=== PATIENT | male | born 1945 | race Two or more races ===

== ENCOUNTER 2019-10-05 09:59 | Inpatient (IN) | payer MEDICARE, MEDICAID ==
[2019-10-05] VITALS (8 sets, daily range): BP systolic 97–162; BP diastolic 56–84
[~2019-10-05] VITALS: Ht 185.4 cm; Wt 80.3 kg
--- NOTE | 2019-10-05 09:59 | NUR ---
ED Nurse Note: Patient was Brought in by ambulance 26 from [facility] due to SOB and desat. pt sp02 is 80 -95% with 15L /min with NR mask. pt is alert x1. non verbal at this time. 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
--- NOTE | 2019-10-05 10:21 | Emergency Room Report ---
History of Present Illness General Chief Complaint: Upper Respiratory Illness Source: EMS Present Illness HPI Patient is sent in from nursing facility With reports of shortness of breath Upon arrival the patient is some respiratory distress appears tachypneic and uncomfortable Patient himself is not able to provide any input History of present illness remains limited paramedics have reported that the patient tested negative for covid-19 at the nursing facility however is unclear if the testing date There has been well-known documented positive cases at this facility specifically Otherwise the history of present illness remains limited Allergies: Coded Allergies: No Known Allergies (Unverified , 10/05/19) COVID-19 Screening Contact w/high risk pt: Yes Recent Travel to affected area: No Experienced COVID-19 symptoms?: Yes COVID-19 symptoms experienced: Shortness of Breath Patient History Limited by: medical condition Past Medical History: see triage record Reviewed Nursing Documentation: PMH: Agreed; PSxH: Agreed Nursing Documentation-PMH Hx Cardiac Problems: Yes - A fib Hx Hypertension: Yes Hx Gastrointestinal Problems: Yes Review of Systems All Other Systems: limited - Other than the ones mentioned in the history of present illness all others are reviewed however they do stay limited due to the patient's mental status Physical Exam Vital Signs Date Time Temp Pulse Resp B/P (MAP) Pulse Ox O2 Delivery O2 Flow Rate FiO2 10/05/19 09:52 99.0 140 24 180/62 (101) 90 Non-Rebreather 15.0 Sp02 EP Interpretation: reviewed, abnormal - Documented at 90%, however at bedside patient saturating at 97% on 6L oxygenation General Appearance: moderate distress - Appears tachypneic and uncomfortable Head: normocephalic, atraumatic Eyes: bilateral eye PERRL, bilateral eye EOMI ENT: dry mucus membranes Neck: supple Respiratory: crackles - Bilaterally with evidence of some early retractions and tachypneic Cardiovascular #1: tachycardia Gastrointestinal: non tender, soft Musculoskeletal: other - Patient has below the knee amputations moves upper extremity without focal deficit Neurologic: responsive - eyes are open and patient is awake however appears in mild to moderate distress Skin: other - Multiple skin breakdowns Lymphatic: no adenopathy Procedures Critical Care Time Critical Care Time 85 minutes for initial critical presentation concern for covid-19 concern for acute respiratory decompensation and possible not including any procedural time Medical Decision Making Diagnostic Impression: Primary Impression: Dyspnea Additional Impressions: COVID-19 virus infection Upper respiratory infection ER Course Patient is a fairly complex patient with multiple differential to consideration including but not limited to cardiac cardiopulmonary and vascular emergencies Patient presented tachycardic Appears ill After Nugent catheter placement patient's heart rate improved significantly respirations appear to improve Heart rate did improve patient remains generally malaised Atrial fibrillation is also improved Patient has testing performed and admitted for further care Labs Test 10/05/19 10:15 10/05/19 11:48 White Blood Count 22.1 K/UL (4.8-10.8) Red Blood Count 5.89 M/UL (4.70-6.10) Hemoglobin 18.3 G/DL (14.2-18.0) Hematocrit 56.6 % (42.0-52.0) Mean Corpuscular Volume 96 FL (80-99) Mean Corpuscular Hemoglobin 31.1 PG (27.0-31.0) Mean Corpuscular Hemoglobin Concent 32.4 G/DL (32.0-36.0) Red Cell Distribution Width 13.5 % (11.6-14.8) Platelet Count 151 K/UL (150-450) Mean Platelet Volume 11.2 FL (6.5-10.1) Neutrophils (%) (Auto) % (45.0-75.0) Lymphocytes (%) (Auto) % (20.0-45.0) Monocytes (%) (Auto) % (1.0-10.0) Eosinophils (%) (Auto) % (0.0-3.0) Basophils (%) (Auto) % (0.0-2.0) Differential Total Cells Counted 100 Neutrophils % (Manual) 81 % (45-75) Lymphocytes % (Manual) 6 % (20-45) Monocytes % (Manual) 3 % (1-10) Eosinophils % (Manual) 0 % (0-3) Basophils % (Manual) 0 % (0-2) Band Neutrophils 10 % (0-8) Platelet Estimate Adequate Platelet Morphology Normal Red Blood Cell Morphology Normal Prothrombin Time 14.1 SEC (9.30-11.50) Prothromb Time International Ratio 1.3 (0.9-1.1) Activated Partial Thromboplast Time 29 SEC (23-33) Urine Color Yellow Urine Appearance Clear Urine pH 5 (4.5-8.0) Urine Specific [place] 1.010 (1.005-1.035) Urine Protein 2+ (NEGATIVE) Urine Glucose (UA) Negative (NEGATIVE) Urine Ketones Negative (NEGATIVE) Urine Blood 1+ (NEGATIVE) Urine Nitrite Negative (NEGATIVE) Urine Bilirubin Negative (NEGATIVE) Urine Urobilinogen Normal MG/DL (0.0-1.0) Urine Leukocyte Esterase Negative (NEGATIVE) Urine RBC 0-2 /HPF (0 - 0) Urine WBC 0 /HPF (0 - 0) Urine Squamous Epithelial Cells None /LPF (NONE/OCC) Urine Bacteria None /HPF (NONE) Arterial Blood pH 7.494 (7.350-7.450) Arterial Blood Partial Pressure CO2 12.6 mmHg (35.0-45.0) Arterial Blood Partial Pressure O2 66.6 mmHg (75.0-100.0) Arterial Blood HCO3 9.5 mmol/L (22.0-26.0) Arterial Blood Oxygen Saturation 94.2 % (95-100) Arterial Blood Base Excess -9.0 (-2-2) Chucho Test Positive Sodium Level 149 MMOL/L (136-145) Potassium Level 5.4 MMOL/L (3.5-5.1) Chloride Level 116 MMOL/L (98-107) Carbon Dioxide Level 16 MMOL/L (21-32) Anion Gap 17 mmol/L (5-15) Blood Urea Nitrogen 102 mg/dL (7-18) Creatinine 4.3 MG/DL (0.55-1.30) Estimat Glomerular Filtration Rate 13.6 mL/min (>60) Glucose Level 123 MG/DL (74-106) Lactic Acid Level 3.50 mmol/L (0.4-2.0) 3.40 mmol/L (0.66-2.22) Calcium Level 9.4 MG/DL (8.5-10.1) Total Bilirubin 0.5 MG/DL (0.2-1.0) Aspartate Amino Transf (AST/SGOT) 27 U/L (15-37) Alanine Aminotransferase (ALT/SGPT) 30 U/L (12-78) Alkaline Phosphatase 68 U/L (46-116) Total Creatine Kinase 151 U/L (26-308) Creatine Kinase MB 1.7 NG/ML (0.0-3.6) Creatine Kinase MB Relative Index 1.1 Troponin I 0.326 ng/mL (0.000-0.056) Pro-B-Type Natriuretic Peptide 91271 pg/mL (0-125) Total Protein 8.0 G/DL (6.4-8.2) Albumin 2.9 G/DL (3.4-5.0) Globulin 5.1 g/dL Albumin/Globulin Ratio 0.6 (1.0-2.7) Rhythm Strip Diag. Results EP Interpretation: yes Rate: 125 Rhythm: no PVC's, no ectopy, other - Tachycardic Chest X-Ray Diagnostic Results Chest X-Ray Diagnostic Results : Chest X-Ray Ordered: Yes # of Views/Limited/Complete: 1 View Indication: Shortness of Breath EP Interpretation: Yes Interpretation: no pneumothorax, other - Right lower lobe infiltrate, small effusion Impression: Other - Right lower lobe infiltrate small effusion Electronically Signed by: Tate Christine DO Last Vital Signs Date Time Temp Pulse Resp B/P (MAP) Pulse Ox O2 Delivery O2 Flow Rate FiO2 10/05/19 09:52 99.0 140 24 180/62 (101) 90 Non-Rebreather 15.0 Status: improved Disposition: ADMITTED INPATIENT Condition: Critical Tate Christine DO Oct 05, 2019 10:21
[2019-10-05] MEDS ORDERED: Piperacillin/Tazobactam 3.375 GM in NS 110 ML IVPB ONE (10:30)
--- NOTE | 2019-10-05 10:30 | NUR ---
ED Nurse Note: blood , urine, swab sample sent down to lab.
[2019-10-05 10:38] LABS: APPEARANCE,URINE CLEAR; BILIRUBIN, URINE NEGATIVE (NEGATIVE); GLUCOSE, URINE (UA) NEGATIVE (NEGATIVE); HEMATOCRIT 56.6 % (42.0-52.0); KETONES,URINE NEGATIVE (NEGATIVE); LEUKOCYTE ESTERASE ,URINE NEGATIVE (NEGATIVE); MEAN CORPUSCULAR VOLUME 96 FL (80-99); NITRITE,URINE NEGATIVE (NEGATIVE); PH,URINE 5 (4.5-8.0); PLATELET COUNT 151 K/UL (150-450); PROTEIN,URINE 2+ (NEGATIVE); RED BLOOD COUNT 5.89 M/UL (4.70-6.10); RED CELL DISTRIBUTION WIDTH 13.5 % (11.6-14.8); UROBILINOGEN,URINE NORMAL MG/DL (0.0-1.0)
[2019-10-05 10:50] LABS: COLOR,URINE YELLOW
--- NOTE | 2019-10-05 10:56 | NUR ---
ED Nurse Note: x ray at bedside.
[2019-10-05 11:01] LABS: ALANINE AMINOTRANSFERASE 30 U/L (12-78); ALBUMIN 2.9 G/DL (3.4-5.0); ALBUMIN/GLOBULIN RATIO 0.6 (1.0-2.7); ALKALINE PHOSPHATASE 68 U/L (46-116); ASPARTATE AMINO TRANSFERASE 27 U/L (15-37); BILIRUBIN,TOTAL 0.5 MG/DL (0.2-1.0); BLOOD UREA NITROGEN 102 mg/dL (7-18); CALCIUM 9.4 MG/DL (8.5-10.1); CARBON DIOXIDE 16 MMOL/L (21-32); CHLORIDE 116 MMOL/L (98-107); CKMB 1.7 NG/ML (0.0-3.6); CREATINE KINASE 151 U/L (26-308); CREATININE 4.3 MG/DL (0.55-1.30); POTASSIUM 5.4 MMOL/L (3.5-5.1); SODIUM 149 MMOL/L (136-145)
[2019-10-05 11:03] LABS: HEMOGLOBIN 18.3 G/DL (14.2-18.0); WHITE BLOOD COUNT 22.1 K/UL (4.8-10.8)
[2019-10-05 11:09] LABS: ANION GAP 17 mmol/L (5-15)
[2019-10-05] MEDS ORDERED: Heparin 5000 units/ml inj IV ONE (11:15)
[2019-10-05] MEDS ORDERED: Heparin 25,000u/D5W 500ml 500 ML IV SCH (11:15)
--- NOTE | 2019-10-05 11:15 | NUR ---
ED Nurse Note: awaiting for ptt result. per ERMD, give loading dose first, will wait for the ptt result to start heparin drip
[2019-10-05 11:29] LABS: INR 1.3 (0.9-1.1)
[2019-10-05] MEDS ORDERED: dilTIAZem HCl 25mg/5ml Inj IVP ONE (11:30)
--- NOTE | 2019-10-05 11:52 | NUR ---
ED Nurse Note: RECEIVED RESULT OF INITIAL PTT DRAWN AT 1015. HEPARIN DRIP INITIATED BY PRIMARY RN. RECEIVED VERBAL ORDER FOR TIMED PTT 6 HOURS AFTER INITIAL DRAW; 3855.
--- NOTE | 2019-10-05 12:05 | NUR ---
ED Nurse Note: heparin drip started, repeat lactic level sent to lab.
[2019-10-05] MEDS: Acetaminophen 650 MG SUPP RECTAL ONE ×2 (13:34→13:36)
[2019-10-05] MEDS ORDERED: Acetaminophen 650 MG SUPP RECTAL ONE (13:46)
--- NOTE | 2019-10-05 13:52 | Diagnostic Imaging Report ---
Indication: Shortness of breath Technique: One view of the chest Comparison: none Findings: Metallic foreign body projects over the left upper abdomen. Uncertain as whether internal or external to the patient. There is slight blunting of right costophrenic sulcus, small effusion possible. There is questionable slight hazy infiltrate at the right lung base. The remainder of the lungs in the left pleural space are clear. Multiple old healed left rib fracture deformities are noted. The heart size is normal Impression: Possible subtle right basilar hazy infiltrate and minimal pleural fluid. Correlate with clinical findings Other findings as noted
--- NOTE | 2019-10-05 15:07 | Cardiac Electrophysiology PN ---
Subjective Subjective [id number] Objective Last 24 Hour Vital Signs Date Time Temp Pulse Resp B/P (MAP) Pulse Ox O2 Delivery O2 Flow Rate FiO2 10/05/19 13:20 100.3 10/05/19 12:06 98.2 122 26 120/78 93 Non-Rebreather 15.0 10/05/19 11:45 140 118/76 10/05/19 09:59 145 28 Non-Rebreather 15.0 10/05/19 09:59 98.8 145 28 162/84 90 Non-Rebreather 15.0 10/05/19 09:52 99.0 140 24 180/62 (101) 90 Non-Rebreather 15.0 Laboratory Tests Test 10/05/19 10:15 10/05/19 11:48 White Blood Count 22.1 K/UL (4.8-10.8) *H Red Blood Count 5.89 M/UL (4.70-6.10) Hemoglobin 18.3 G/DL (14.2-18.0) *H Hematocrit 56.6 % (42.0-52.0) H Mean Corpuscular Volume 96 FL (80-99) Mean Corpuscular Hemoglobin 31.1 PG (27.0-31.0) H Mean Corpuscular Hemoglobin Concent 32.4 G/DL (32.0-36.0) Red Cell Distribution Width 13.5 % (11.6-14.8) Platelet Count 151 K/UL (150-450) Mean Platelet Volume 11.2 FL (6.5-10.1) H Neutrophils (%) (Auto) % (45.0-75.0) Lymphocytes (%) (Auto) % (20.0-45.0) Monocytes (%) (Auto) % (1.0-10.0) Eosinophils (%) (Auto) % (0.0-3.0) Basophils (%) (Auto) % (0.0-2.0) Differential Total Cells Counted 100 Neutrophils % (Manual) 81 % (45-75) H Lymphocytes % (Manual) 6 % (20-45) L Monocytes % (Manual) 3 % (1-10) Eosinophils % (Manual) 0 % (0-3) Basophils % (Manual) 0 % (0-2) Band Neutrophils 10 % (0-8) H Platelet Estimate Adequate Platelet Morphology Normal Red Blood Cell Morphology Normal Prothrombin Time 14.1 SEC (9.30-11.50) H Prothromb Time International Ratio 1.3 (0.9-1.1) H Activated Partial Thromboplast Time 29 SEC (23-33) Urine Color Yellow Urine Appearance Clear Urine pH 5 (4.5-8.0) Urine Specific [place] 1.010 (1.005-1.035) Urine Protein 2+ (NEGATIVE) H Urine Glucose (UA) Negative (NEGATIVE) Urine Ketones Negative (NEGATIVE) Urine Blood 1+ (NEGATIVE) H Urine Nitrite Negative (NEGATIVE) Urine Bilirubin Negative (NEGATIVE) Urine Urobilinogen Normal MG/DL (0.0-1.0) Urine Leukocyte Esterase Negative (NEGATIVE) Urine RBC 0-2 /HPF (0 - 0) H Urine WBC 0 /HPF (0 - 0) Urine Squamous Epithelial Cells None /LPF (NONE/OCC) Urine Bacteria None /HPF (NONE) Arterial Blood pH 7.494 (7.350-7.450) Arterial Blood Partial Pressure CO2 12.6 mmHg (35.0-45.0) *L Arterial Blood Partial Pressure O2 66.6 mmHg (75.0-100.0) L Arterial Blood HCO3 9.5 mmol/L (22.0-26.0) *L Arterial Blood Oxygen Saturation 94.2 % (95-100) L Arterial Blood Base Excess -9.0 (-2-2) L Chucho Test Positive Sodium Level 149 MMOL/L (136-145) H Potassium Level 5.4 MMOL/L (3.5-5.1) H Chloride Level 116 MMOL/L (98-107) H Carbon Dioxide Level 16 MMOL/L (21-32) L Anion Gap 17 mmol/L (5-15) H Blood Urea Nitrogen 102 mg/dL (7-18) H Creatinine 4.3 MG/DL (0.55-1.30) H Estimat Glomerular Filtration Rate 13.6 mL/min (>60) Glucose Level 123 MG/DL (74-106) H Lactic Acid Level 3.50 mmol/L (0.4-2.0) H 3.40 mmol/L (0.66-2.22) H Calcium Level 9.4 MG/DL (8.5-10.1) Total Bilirubin 0.5 MG/DL (0.2-1.0) Aspartate Amino Transf (AST/SGOT) 27 U/L (15-37) Alanine Aminotransferase (ALT/SGPT) 30 U/L (12-78) Alkaline Phosphatase 68 U/L (46-116) Total Creatine Kinase 151 U/L (26-308) Creatine Kinase MB 1.7 NG/ML (0.0-3.6) Creatine Kinase MB Relative Index 1.1 Troponin I 0.326 ng/mL (0.000-0.056) Pro-B-Type Natriuretic Peptide 32919 pg/mL (0-125) H Total Protein 8.0 G/DL (6.4-8.2) Albumin 2.9 G/DL (3.4-5.0) L Globulin 5.1 g/dL Albumin/Globulin Ratio 0.6 (1.0-2.7) L Microbiology Date/Time Source Procedure Growth Status 10/05/19 10:15 Nasal Nares - Final Complete 10/05/19 10:15 Nasal Nares - Final Complete Kei Adams MD Oct 05, 2019 15:06
[2019-10-05] MEDS ORDERED: DiphenhydrAMINE 25mg Tab ORAL PRN (15:15)
[2019-10-05] MEDS ORDERED: Albuterol/Ipratropium 3ml neb HHN PRN (15:15)
[2019-10-05] MEDS ORDERED: Mylanta II UD 30ml ORAL PRN (15:15)
--- NOTE | 2019-10-05 15:42 | History and Physical ---
History of Present Illness General Date patient seen: Oct 05, 2019 Time patient seen: 15:31 Reason for Hospitalization: Upper Respiratory Illness Present Illness HPI 73 year old man with history of atrial fibrillation, not on anticoagulation, dysphagia, s/p G-tube, chonic diastolic CHF, HTN, DNR who presented from SNF with dyspnea and hypoxemia, oxygen saturation was reportedly 80 -95% with 15L / min with NR mask. pt is alert x1. non verbal at the time of my visit, information obtain from assisted papers and discussion with ED team. In ED he was found to be in rapid atrial fibrillation, HR 150s, given IV diltiazem. Other workup showed IRENE and hypernatremia, acute urinary retention with 2 liters of urine obtained after Nugent was placed, RLL infiltrate on CXR and elevated lactate, mildly elevated troponin. Patient given IV abx and referred for telemetry admission. FHx: Unable to obtain due to medical condition SHx: shelter resident Allergies: Coded Allergies: No Known Allergies (Unverified , 10/05/19) COVID-19 Screening Contact w/high risk pt: Yes Recent Travel to affected area: No Experienced COVID-19 symptoms?: Yes COVID-19 symptoms experienced: Shortness of Breath Patient History Healthcare decision maker Resuscitation status Advanced Directive on File Review of Systems ROS Narrative Unable to obtain due to medical condition Physical Exam General Appearance: alert, confused HEENT: atraumatic, anicteric Neck: supple, normal inspection Respiratory/Chest: lungs clear, normal breath sounds, no respiratory distress, no accessory muscle use Cardiovascular/Chest: tachycardia, irregularly irregular Abdomen: non tender, soft Last 24 Hour Vital Signs Date Time Temp Pulse Resp B/P (MAP) Pulse Ox O2 Delivery O2 Flow Rate FiO2 10/05/19 13:20 100.3 10/05/19 12:06 98.2 122 26 120/78 93 Non-Rebreather 15.0 10/05/19 11:45 140 118/76 10/05/19 09:59 145 28 Non-Rebreather 15.0 10/05/19 09:59 98.8 145 28 162/84 90 Non-Rebreather 15.0 10/05/19 09:52 99.0 140 24 180/62 (101) 90 Non-Rebreather 15.0 Laboratory Tests Test 10/05/19 10:15 10/05/19 11:48 White Blood Count 22.1 K/UL (4.8-10.8) *H Red Blood Count 5.89 M/UL (4.70-6.10) Hemoglobin 18.3 G/DL (14.2-18.0) *H Hematocrit 56.6 % (42.0-52.0) H Mean Corpuscular Volume 96 FL (80-99) Mean Corpuscular Hemoglobin 31.1 PG (27.0-31.0) H Mean Corpuscular Hemoglobin Concent 32.4 G/DL (32.0-36.0) Red Cell Distribution Width 13.5 % (11.6-14.8) Platelet Count 151 K/UL (150-450) Mean Platelet Volume 11.2 FL (6.5-10.1) H Neutrophils (%) (Auto) % (45.0-75.0) Lymphocytes (%) (Auto) % (20.0-45.0) Monocytes (%) (Auto) % (1.0-10.0) Eosinophils (%) (Auto) % (0.0-3.0) Basophils (%) (Auto) % (0.0-2.0) Differential Total Cells Counted 100 Neutrophils % (Manual) 81 % (45-75) H Lymphocytes % (Manual) 6 % (20-45) L Monocytes % (Manual) 3 % (1-10) Eosinophils % (Manual) 0 % (0-3) Basophils % (Manual) 0 % (0-2) Band Neutrophils 10 % (0-8) H Platelet Estimate Adequate Platelet Morphology Normal Red Blood Cell Morphology Normal Prothrombin Time 14.1 SEC (9.30-11.50) H Prothromb Time International Ratio 1.3 (0.9-1.1) H Activated Partial Thromboplast Time 29 SEC (23-33) Urine Color Yellow Urine Appearance Clear Urine pH 5 (4.5-8.0) Urine Specific [place] 1.010 (1.005-1.035) Urine Protein 2+ (NEGATIVE) H Urine Glucose (UA) Negative (NEGATIVE) Urine Ketones Negative (NEGATIVE) Urine Blood 1+ (NEGATIVE) H Urine Nitrite Negative (NEGATIVE) Urine Bilirubin Negative (NEGATIVE) Urine Urobilinogen Normal MG/DL (0.0-1.0) Urine Leukocyte Esterase Negative (NEGATIVE) Urine RBC 0-2 /HPF (0 - 0) H Urine WBC 0 /HPF (0 - 0) Urine Squamous Epithelial Cells None /LPF (NONE/OCC) Urine Bacteria None /HPF (NONE) Arterial Blood pH 7.494 (7.350-7.450) Arterial Blood Partial Pressure CO2 12.6 mmHg (35.0-45.0) *L Arterial Blood Partial Pressure O2 66.6 mmHg (75.0-100.0) L Arterial Blood HCO3 9.5 mmol/L (22.0-26.0) *L Arterial Blood Oxygen Saturation 94.2 % (95-100) L Arterial Blood Base Excess -9.0 (-2-2) L Chucho Test Positive Sodium Level 149 MMOL/L (136-145) H Potassium Level 5.4 MMOL/L (3.5-5.1) H Chloride Level 116 MMOL/L (98-107) H Carbon Dioxide Level 16 MMOL/L (21-32) L Anion Gap 17 mmol/L (5-15) H Blood Urea Nitrogen 102 mg/dL (7-18) H Creatinine 4.3 MG/DL (0.55-1.30) H Estimat Glomerular Filtration Rate 13.6 mL/min (>60) Glucose Level 123 MG/DL (74-106) H Lactic Acid Level 3.50 mmol/L (0.4-2.0) H 3.40 mmol/L (0.66-2.22) H Calcium Level 9.4 MG/DL (8.5-10.1) Total Bilirubin 0.5 MG/DL (0.2-1.0) Aspartate Amino Transf (AST/SGOT) 27 U/L (15-37) Alanine Aminotransferase (ALT/SGPT) 30 U/L (12-78) Alkaline Phosphatase 68 U/L (46-116) Total Creatine Kinase 151 U/L (26-308) Creatine Kinase MB 1.7 NG/ML (0.0-3.6) Creatine Kinase MB Relative Index 1.1 Troponin I 0.326 ng/mL (0.000-0.056) Pro-B-Type Natriuretic Peptide 80157 pg/mL (0-125) H Total Protein 8.0 G/DL (6.4-8.2) Albumin 2.9 G/DL (3.4-5.0) L Globulin 5.1 g/dL Albumin/Globulin Ratio 0.6 (1.0-2.7) L Microbiology Date/Time Source Procedure Growth Status 10/05/19 10:15 Nasal Nares - Final Complete 10/05/19 10:15 Nasal Nares - Final Complete Height (Feet): 6 Height (Inches): 1.00 Weight (Pounds): 180 Medications Current Medications Medications (Trade) Dose Ordered Sig/Kristopher Route PRN Reason Start Time Stop Time Status Last Admin Dose Admin Heparin Sodium/ Dextrose 500 ml @ 19.595 mls/ hr ADJUST PER PROTOCOL IV 10/05/19 11:15 11/04/19 11:14 10/05/19 12:03 Assessment/Plan Assessment/Plan: 73 year old man with history of atrial fibrillation, not on anticoagulation, dysphagia, s/p G-tube, chonic diastolic CHF, HTN, DNR who presented from SNF with dyspnea and hypoxemia, rapid afib, RLL pneumonia and severe sepsis, likely IRENE, hyperkalemia, metabolic acidosis. #Severe sepsis #RLL gram negative pneumonia #Acute hypoxic respiratory failure -admit to telemetry unit -COVID19 rule out -Droplet precautions -Start broad spectrum antibiotics, vancomycin and Zosyn -Supplemental oxygen, inhaled bronchodilators -check lactate and procalcitonin -ID and Pulm consulted #Suspected IRENE #Hyperkalemia #Metabolic acidosis -IV hydration -Avoid nephrotoxic meds -Monitor BMP -Nephrology consulted, likely will need urgent HD, surgery to place temp HD cath #Rapid afib -cardiac monitoring -seen by Cardiology, started on metoprolol, may need to change to digoxin or amio if pressures are borderline low -continue heparin drip CODE Status: DNR, POLST in assisted transfer papers VTE PPx: HSQ I spent 75 minutes on this patient's case, and 40 was dedicated to counseling and/or care coordination with RN, Cardiology, Nephrology and Surgery MDs, ED team. Hemal Pinon MD Oct 05, 2019 15:42
--- NOTE | 2019-10-05 16:21 | Consultation ---
History of Present Illness General Chief Complaint: Upper Respiratory Illness Present Illness HPI 73 year old man with history of atrial fibrillation, not on anticoagulation, dysphagia, s/p G-tube, chonic diastolic CHF, HTN, DNR who presented from SNF with dyspnea and hypoxemia, oxygen saturation was reportedly 80 -95% with 15L / min with NR mask. pt is alert x1. non verbal at the time of my visit, information obtain from intermediate papers and discussion with ED team. In ED he was found to be in rapid atrial fibrillation, HR 150s, given IV diltiazem. Other workup showed IRENE and hypernatremia, acute urinary retention with 2 liters of urine obtained after Nugent was placed, RLL infiltrate on CXR and elevated lactate, mildly elevated troponin. Patient given IV abx and referred for telemetry admission. Allergies: Coded Allergies: No Known Allergies (Unverified , 10/05/19) Medication History Scheduled Amlodipine Besylate (Norvasc), 10 MG GT DAILY, (Reported) Ascorbic Acid* (Ascorbic Acid*), 500 MG ORAL DAILY, (Reported) Cyanocobalamin (Vitamin B-12) (Vitamin B12), 1,000 MCG GT DAILY, (Reported) Famotidine* (Pepcid 20mg tablet*), 20 MG GT DAILY, (Reported) Heparin Sod (Porcine) (Heparin Sodium*), 5,000 UNITS SUBQ DAILY, (Reported) Lisinopril (Lisinopril*), 10 MG GT DAILY, (Reported) Multivitamins* (Multivitamins*), 1 TAB GT DAILY, (Reported) Scheduled PRN Hydrocodone Bit/Acetaminophen 5-325* ([place] 5-325 Tablet*), 1 TAB ORAL Q6H PRN for FOR PAIN, (Reported) Ipratropium [place] 0.5MG/2.5ML (Ipratropium [place] 0.5MG/2.5ML), 0.5 MG HHN Q6H PRN for Shortness of Breath, (Reported) Patient History Healthcare decision maker Resuscitation status Advanced Directive on File Review of Systems ROS Narrative unable to obtain due clinical deterioration Physical Exam General Appearance: moderate distress Respiratory/Chest: accessory muscle use Cardiovascular/Chest: tachycardia Physical Exam Narrative General Appearance: alert, confused HEENT: atraumatic, anicteric Neck: supple, normal inspection Respiratory/Chest: lungs clear, normal breath sounds, no respiratory distress Cardiovascular/Chest: tachycardia, irregularly irregular Abdomen: non tender, soft Last 24 Hour Vital Signs Date Time Temp Pulse Resp B/P (MAP) Pulse Ox O2 Delivery O2 Flow Rate FiO2 10/05/19 13:20 100.3 10/05/19 12:06 98.2 122 26 120/78 93 Non-Rebreather 15.0 10/05/19 11:45 140 118/76 10/05/19 09:59 145 28 Non-Rebreather 15.0 10/05/19 09:59 98.8 145 28 162/84 90 Non-Rebreather 15.0 10/05/19 09:52 99.0 140 24 180/62 (101) 90 Non-Rebreather 15.0 Laboratory Tests Test 10/05/19 10:15 10/05/19 11:48 White Blood Count 22.1 K/UL (4.8-10.8) *H Red Blood Count 5.89 M/UL (4.70-6.10) Hemoglobin 18.3 G/DL (14.2-18.0) *H Hematocrit 56.6 % (42.0-52.0) H Mean Corpuscular Volume 96 FL (80-99) Mean Corpuscular Hemoglobin 31.1 PG (27.0-31.0) H Mean Corpuscular Hemoglobin Concent 32.4 G/DL (32.0-36.0) Red Cell Distribution Width 13.5 % (11.6-14.8) Platelet Count 151 K/UL (150-450) Mean Platelet Volume 11.2 FL (6.5-10.1) H Neutrophils (%) (Auto) % (45.0-75.0) Lymphocytes (%) (Auto) % (20.0-45.0) Monocytes (%) (Auto) % (1.0-10.0) Eosinophils (%) (Auto) % (0.0-3.0) Basophils (%) (Auto) % (0.0-2.0) Differential Total Cells Counted 100 Neutrophils % (Manual) 81 % (45-75) H Lymphocytes % (Manual) 6 % (20-45) L Monocytes % (Manual) 3 % (1-10) Eosinophils % (Manual) 0 % (0-3) Basophils % (Manual) 0 % (0-2) Band Neutrophils 10 % (0-8) H Platelet Estimate Adequate Platelet Morphology Normal Red Blood Cell Morphology Normal Prothrombin Time 14.1 SEC (9.30-11.50) H Prothromb Time International Ratio 1.3 (0.9-1.1) H Activated Partial Thromboplast Time 29 SEC (23-33) Urine Color Yellow Urine Appearance Clear Urine pH 5 (4.5-8.0) Urine Specific [place] 1.010 (1.005-1.035) Urine Protein 2+ (NEGATIVE) H Urine Glucose (UA) Negative (NEGATIVE) Urine Ketones Negative (NEGATIVE) Urine Blood 1+ (NEGATIVE) H Urine Nitrite Negative (NEGATIVE) Urine Bilirubin Negative (NEGATIVE) Urine Urobilinogen Normal MG/DL (0.0-1.0) Urine Leukocyte Esterase Negative (NEGATIVE) Urine RBC 0-2 /HPF (0 - 0) H Urine WBC 0 /HPF (0 - 0) Urine Squamous Epithelial Cells None /LPF (NONE/OCC) Urine Bacteria None /HPF (NONE) Arterial Blood pH 7.494 (7.350-7.450) Arterial Blood Partial Pressure CO2 12.6 mmHg (35.0-45.0) *L Arterial Blood Partial Pressure O2 66.6 mmHg (75.0-100.0) L Arterial Blood HCO3 9.5 mmol/L (22.0-26.0) *L Arterial Blood Oxygen Saturation 94.2 % (95-100) L Arterial Blood Base Excess -9.0 (-2-2) L Chucho Test Positive Sodium Level 149 MMOL/L (136-145) H Potassium Level 5.4 MMOL/L (3.5-5.1) H Chloride Level 116 MMOL/L (98-107) H Carbon Dioxide Level 16 MMOL/L (21-32) L Anion Gap 17 mmol/L (5-15) H Blood Urea Nitrogen 102 mg/dL (7-18) H Creatinine 4.3 MG/DL (0.55-1.30) H Estimat Glomerular Filtration Rate 13.6 mL/min (>60) Glucose Level 123 MG/DL (74-106) H Lactic Acid Level 3.50 mmol/L (0.4-2.0) H 3.40 mmol/L (0.66-2.22) H Calcium Level 9.4 MG/DL (8.5-10.1) Total Bilirubin 0.5 MG/DL (0.2-1.0) Aspartate Amino Transf (AST/SGOT) 27 U/L (15-37) Alanine Aminotransferase (ALT/SGPT) 30 U/L (12-78) Alkaline Phosphatase 68 U/L (46-116) Total Creatine Kinase 151 U/L (26-308) Creatine Kinase MB 1.7 NG/ML (0.0-3.6) Creatine Kinase MB Relative Index 1.1 Troponin I 0.326 ng/mL (0.000-0.056) Pro-B-Type Natriuretic Peptide 90074 pg/mL (0-125) H Total Protein 8.0 G/DL (6.4-8.2) Albumin 2.9 G/DL (3.4-5.0) L Globulin 5.1 g/dL Albumin/Globulin Ratio 0.6 (1.0-2.7) L Microbiology Date/Time Source Procedure Growth Status 10/05/19 10:15 Nasal Nares - Final Complete 10/05/19 10:15 Nasal Nares - Final Complete Height (Feet): 6 Height (Inches): 1.00 Weight (Pounds): 180 Medications Current Medications Medications (Trade) Dose Ordered Sig/Kristopher Route PRN Reason Start Time Stop Time Status Last Admin Dose Admin Acetaminophen (Tylenol) 650 mg Q4H PRN ORAL Mild Pain (Pain Scale 1-3) 10/05/19 15:15 11/04/19 15:14 Al Hydroxide/Mg Hydroxide (Mylanta II) 30 ml Q6H PRN ORAL dyspepsia 10/05/19 15:15 11/04/19 15:14 Albuterol/ Ipratropium (Albuterol/ Ipratropium) 3 ml Q4H PRN HHN Shortness of Breath 10/05/19 15:15 10/10/19 15:14 Aspirin (ASA) 81 mg DAILY ORAL 10/06/19 09:00 11/20/19 08:59 Dextrose (Dextrose 50%) 25 ml Q30M PRN IV Hypoglycemia 10/05/19 15:15 01/03/20 15:14 Dextrose (Dextrose 50%) 50 ml Q30M PRN IV Hypoglycemia 10/05/19 15:15 01/03/20 15:14 Diphenhydramine HCl (Benadryl) 25 mg Q6H PRN ORAL Itching/Pruritis 10/05/19 15:15 11/04/19 15:14 Docusate Sodium (Colace) 100 mg EVERY 12 HOURS ORAL 10/05/19 21:00 11/04/19 20:59 Heparin Sodium/ Dextrose 500 ml @ 19.595 mls/ hr ADJUST PER PROTOCOL IV 10/05/19 11:15 11/04/19 11:14 10/05/19 12:03 Metoprolol Tartrate (Lopressor) 25 mg EVERY 12 HOURS ORAL 10/05/19 21:00 01/03/20 20:59 Ondansetron HCl (Zofran) 4 mg Q6H PRN IVP Nausea & Vomiting 10/05/19 15:15 11/04/19 15:14 Piperacillin Sod/ Tazobactam Sod 3.375 gm/Sodium Chloride 110 ml @ 27.5 mls/hr EVERY 8 HOURS IVPB 10/05/19 22:00 10/10/19 21:59 UNV Sodium Chloride 1,000 ml @ 70 mls/hr [id number] IV 10/05/19 16:11 11/04/19 16:10 UNV Vancomycin HCl (Vanco rx to dose) 1 ea DAILY PRN MISC Per rx protocol 10/05/19 15:15 11/04/19 15:14 UNV Assessment/Plan Diagnosis [place] I: #Acute renal failure - concerns for ATN in the setting of sepsis #Hyperkalemia due to renal failure #lactic acidosis #Sepsis likely due to pneumonia r/o COVID #Hypoxemic respiratory failure r/o COVID #NSTEMI- likely demand ischemia - check UA and urine chem - continue 1/2 NS for hydration - repeat PM BMP - trend lactic acid - antiiotic per ID - avoid supratherapeutic vanco level - 2d echo - cardiology Charlee Martinez M.D. Oct 05, 2019 16:21
--- NOTE | 2019-10-05 17:40 | NUR ---
ED Nurse Note: Permacath to right groin inserted by dr rosales at bedside.
--- NOTE | 2019-10-05 17:51 | NUR ---
ED Nurse Note: PT in bed resting, VSS as documented.
--- NOTE | 2019-10-05 17:53 | Consultation ---
History of Present Illness General Date patient seen: Oct 05, 2019 Chief Complaint: Upper Respiratory Illness Present Illness HPI 73-year-old male [facility] resident presented for evaluation emergency room for upper respiratory illness shortness of breath. In emergency room identified to have significant leukocytosis, lactic acidosis, sepsis, renal insufficiency. Patient was followed by tube turner and recommended to have urgent hemodialysis. Patient without history of hemodialysis and has no accessed therefore surgery was called to evaluate and assist with care. Patient seen, patient [place], chart reviewed. Patient seen emergently in the emergency department at request. covid screening necessary for precautions taken patient unable to provide history or meaningful examination at this time Allergies: Coded Allergies: No Known Allergies (Unverified , 10/05/19) Patient History Limited by: medical condition History Provided By: Medical Record, PMD Healthcare decision maker Resuscitation status Advanced Directive on File Past Medical/Surgical History Past Medical/Surgical History: (1) Severe sepsis Review of Systems ROS Narrative Unable to obtain from patient given current medical condition Physical Exam General Appearance: moderate distress Lines, tubes and drains: peripheral HEENT: normocephalic, atraumatic, anicteric Neck: normal inspection Respiratory/Chest: respiratory distress, decreased breath sounds Cardiovascular/Chest: tachycardia Abdomen: soft, no organomegaly, no mass Extremities: non-tender, normal inspection Skin Exam: warm/dry Neurologic: unresponsiveness Last 24 Hour Vital Signs Date Time Temp Pulse Resp B/P (MAP) Pulse Ox O2 Delivery O2 Flow Rate FiO2 10/05/19 16:40 100.2 23 97/59 91 Non-Rebreather 10/05/19 14:00 100.2 10/05/19 13:20 100.3 10/05/19 12:06 98.2 122 26 120/78 93 Non-Rebreather 15.0 10/05/19 11:45 140 118/76 10/05/19 09:59 145 28 Non-Rebreather 15.0 10/05/19 09:59 98.8 145 28 162/84 90 Non-Rebreather 15.0 10/05/19 09:52 99.0 140 24 180/62 (101) 90 Non-Rebreather 15.0 Laboratory Tests Test 10/05/19 10:15 10/05/19 11:48 10/05/19 17:30 White Blood Count 22.1 K/UL (4.8-10.8) *H Red Blood Count 5.89 M/UL (4.70-6.10) Hemoglobin 18.3 G/DL (14.2-18.0) *H Hematocrit 56.6 % (42.0-52.0) H Mean Corpuscular Volume 96 FL (80-99) Mean Corpuscular Hemoglobin 31.1 PG (27.0-31.0) H Mean Corpuscular Hemoglobin Concent 32.4 G/DL (32.0-36.0) Red Cell Distribution Width 13.5 % (11.6-14.8) Platelet Count 151 K/UL (150-450) Mean Platelet Volume 11.2 FL (6.5-10.1) H Neutrophils (%) (Auto) % (45.0-75.0) Lymphocytes (%) (Auto) % (20.0-45.0) Monocytes (%) (Auto) % (1.0-10.0) Eosinophils (%) (Auto) % (0.0-3.0) Basophils (%) (Auto) % (0.0-2.0) Differential Total Cells Counted 100 Neutrophils % (Manual) 81 % (45-75) H Lymphocytes % (Manual) 6 % (20-45) L Monocytes % (Manual) 3 % (1-10) Eosinophils % (Manual) 0 % (0-3) Basophils % (Manual) 0 % (0-2) Band Neutrophils 10 % (0-8) H Platelet Estimate Adequate Platelet Morphology Normal Red Blood Cell Morphology Normal Prothrombin Time 14.1 SEC (9.30-11.50) H Prothromb Time International Ratio 1.3 (0.9-1.1) H Activated Partial Thromboplast Time 29 SEC (23-33) Pending Urine Color Yellow Urine Appearance Clear Urine pH 5 (4.5-8.0) Urine Specific [place] 1.010 (1.005-1.035) Urine Protein 2+ (NEGATIVE) H Urine Glucose (UA) Negative (NEGATIVE) Urine Ketones Negative (NEGATIVE) Urine Blood 1+ (NEGATIVE) H Urine Nitrite Negative (NEGATIVE) Urine Bilirubin Negative (NEGATIVE) Urine Urobilinogen Normal MG/DL (0.0-1.0) Urine Leukocyte Esterase Negative (NEGATIVE) Urine RBC 0-2 /HPF (0 - 0) H Urine WBC 0 /HPF (0 - 0) Urine Squamous Epithelial Cells None /LPF (NONE/OCC) Urine Bacteria None /HPF (NONE) Arterial Blood pH 7.494 (7.350-7.450) Arterial Blood Partial Pressure CO2 12.6 mmHg (35.0-45.0) *L Arterial Blood Partial Pressure O2 66.6 mmHg (75.0-100.0) L Arterial Blood HCO3 9.5 mmol/L (22.0-26.0) *L Arterial Blood Oxygen Saturation 94.2 % (95-100) L Arterial Blood Base Excess -9.0 (-2-2) L Chucho Test Positive Sodium Level 149 MMOL/L (136-145) H Pending Potassium Level 5.4 MMOL/L (3.5-5.1) H Pending Chloride Level 116 MMOL/L (98-107) H Pending Carbon Dioxide Level 16 MMOL/L (21-32) L Pending Anion Gap 17 mmol/L (5-15) H Blood Urea Nitrogen 102 mg/dL (7-18) H Pending Creatinine 4.3 MG/DL (0.55-1.30) H Pending Estimat Glomerular Filtration Rate 13.6 mL/min (>60) Pending Glucose Level 123 MG/DL (74-106) H Pending Lactic Acid Level 3.50 mmol/L (0.4-2.0) H 3.40 mmol/L (0.66-2.22) H Calcium Level 9.4 MG/DL (8.5-10.1) Pending Total Bilirubin 0.5 MG/DL (0.2-1.0) Aspartate Amino Transf (AST/SGOT) 27 U/L (15-37) Alanine Aminotransferase (ALT/SGPT) 30 U/L (12-78) Alkaline Phosphatase 68 U/L (46-116) Total Creatine Kinase 151 U/L (26-308) Creatine Kinase MB 1.7 NG/ML (0.0-3.6) Creatine Kinase MB Relative Index 1.1 Troponin I 0.326 ng/mL (0.000-0.056) Pro-B-Type Natriuretic Peptide 43477 pg/mL (0-125) H Total Protein 8.0 G/DL (6.4-8.2) Albumin 2.9 G/DL (3.4-5.0) L Globulin 5.1 g/dL Albumin/Globulin Ratio 0.6 (1.0-2.7) L Microbiology Date/Time Source Procedure Growth Status 10/05/19 10:15 Nasal Nares - Final Complete 10/05/19 10:15 Nasal Nares - Final Complete Height (Feet): 6 Height (Inches): 1.00 Weight (Pounds): 180 Medications Current Medications Medications (Trade) Dose Ordered Sig/Kristopher Route PRN Reason Start Time Stop Time Status Last Admin Dose Admin Acetaminophen (Tylenol) 650 mg Q4H PRN ORAL Mild Pain (Pain Scale 1-3) 10/05/19 15:15 11/04/19 15:14 Al Hydroxide/Mg Hydroxide (Mylanta II) 30 ml Q6H PRN ORAL dyspepsia 10/05/19 15:15 11/04/19 15:14 Albuterol/ Ipratropium (Albuterol/ Ipratropium) 3 ml Q4H PRN HHN Shortness of Breath 10/05/19 15:15 10/10/19 15:14 Aspirin (ASA) 81 mg DAILY ORAL 10/06/19 09:00 11/20/19 08:59 Dextrose (Dextrose 50%) 25 ml Q30M PRN IV Hypoglycemia 10/05/19 15:15 01/03/20 15:14 Dextrose (Dextrose 50%) 50 ml Q30M PRN IV Hypoglycemia 10/05/19 15:15 01/03/20 15:14 Diphenhydramine HCl (Benadryl) 25 mg Q6H PRN ORAL Itching/Pruritis 10/05/19 15:15 11/04/19 15:14 Docusate Sodium (Colace) 100 mg EVERY 12 HOURS ORAL 10/05/19 21:00 11/04/19 20:59 Heparin Sodium/ Dextrose 500 ml @ 19.595 mls/ hr ADJUST PER PROTOCOL IV 10/05/19 11:15 11/04/19 11:14 10/05/19 12:03 Metoprolol Tartrate (Lopressor) 25 mg EVERY 12 HOURS ORAL 10/05/19 21:00 01/03/20 20:59 Ondansetron HCl (Zofran) 4 mg Q6H PRN IVP Nausea & Vomiting 10/05/19 15:15 11/04/19 15:14 Piperacillin Sod/ Tazobactam Sod 3.375 gm/Sodium Chloride 110 ml @ 27.5 mls/hr EVERY 8 HOURS IVPB 10/05/19 22:00 10/10/19 21:59 UNV Sodium Chloride 1,000 ml @ 70 mls/hr [id number] IV 10/05/19 16:11 11/04/19 16:10 UNV Sodium Chloride 1,000 ml @ 999 mls/hr Q1H1M ONCE IV 10/05/19 17:15 10/05/19 18:15 10/05/19 17:15 Vancomycin HCl (Vanco rx to dose) 1 ea DAILY PRN MISC Per rx protocol 10/05/19 15:15 11/04/19 15:14 UNV Assessment/Plan Problem List: (1) Severe sepsis Assessment & Plan: 73-year-old male with multiple comorbidities presents from shelter with shortness of breath. Leukocytosis, lactic acidosis, abnormal electrolytes, renal insufficiency, sepsis. Discussed with PCP and tube turner and plan for urgent dialysis given patient's condition. He is fairly ill and will likely deteriorate requiring full care measures. Shortness of breath and respiratory status likely related potentially to CO VID and until diagnosed evaluated all cautions need to be taken. Urgent hemodialysis catheter placed in the emergency department by myself. Full precautions taken. See note. Will monitor and follow with recommendations. Thank you for let me precipitate patient's care ICD Codes: A41.9 - Sepsis, unspecified organism; R65.20 - Severe sepsis without septic shock SNOMED: [id number] Orville Guzman Oct 05, 2019 17:53
--- NOTE | 2019-10-05 17:56 | Operative Note - PDOC ---
Operative Note Operative Note Date of Operation/Procedure: Oct 05, 2019 Pre-op Diagnosis: Severe sepsis renal insufficiency abnormal electrolytes Procedure: Right femoral temporary hemodialysis catheter insertion Post-op Diagnosis: same as pre-op Surgeon: Orville Guzman MD Anesthesia: local Specimen: none Complications: none Condition: unstable Estimated Blood Loss: minimal Drains: none Implant(s) used?: No Indications for Procedure Please see consult note. Patient septic in emergency department abnormal electrolytes leukocytosis lactic acidosis renal insufficiency requiring urgent HD. Discussed with PCP and manager advanced. Unfortunately patient unable to consent for right now emergency needed medically necessary will proceed with procedure for lifesaving measures Description of Procedure Patient was made comfortable in the emergency department at [facility]. He was on full precautions for CO VID. He was placed in the supine position. He was on facemask full O2. Right groin was prepped draped in the same surgical fashion. Local anesthetic was infiltrated. Finder needle used in the right femoral vein was cannulated on second stick without complication. Guidewire placed through the needle needle discarded. Small skin incision made around the guidewire and dilators used. Once tract was dilated appropriately the dual-lumen temporary venous catheter was directed over the guidewire and guidewire removed. Catheter was placed appropriately without complication. Both ports flushed and aspirated without complication. Line was sutured in place and dressings were applied. Urgent dialysis planned immediately. Thank you will follow with recommendations. Orville Guzman Oct 05, 2019 17:55
[2019-10-05 18:11] LABS: ANION GAP 16 mmol/L (5-15); BLOOD UREA NITROGEN 100 mg/dL (7-18); CALCIUM 8.2 MG/DL (8.5-10.1); CARBON DIOXIDE 16 MMOL/L (21-32); CHLORIDE 119 MMOL/L (98-107); CREATININE 3.5 MG/DL (0.55-1.30); POTASSIUM 3.9 MMOL/L (3.5-5.1); SODIUM 151 MMOL/L (136-145)
--- NOTE | 2019-10-05 18:30 | NUR ---
ED Nurse Note: ERMD made aware of ptt 150< but was drawn from the same line from the IV line from heparin (right AC) . another sample was drawn from the other arm ( left arm )
--- NOTE | 2019-10-05 18:49 | NUR ---
ED Nurse Note: per ERMD, repeat PTT to be drawn at this time. sample sent to lab
--- NOTE | 2019-10-05 19:03 | NUR ---
HAND-OFF: Report given to YUAN Peoples. endorsed plan of care.
--- NOTE | 2019-10-05 19:11 | NUR ---
ED Nurse Note: Received report from YUAN Mcgregor. Patient in bed, no acute distress noted upon assessment.
[2019-10-05] MEDS ORDERED: MULTIVITAMINS1 EAC2 GT (19:21)
[2019-10-05] MEDS ORDERED: ASCORBIC ACID500 MG ORAL (19:21)
[2019-10-05] MEDS ORDERED: IPRATROPIU0.2 MG/1 M HHN (19:21)
[2019-10-05] MEDS ORDERED: FAMOTIDINE20 MG GT (19:21)
[2019-10-05] MEDS ORDERED: LISINOPRIL5 MG GT (19:21)
[2019-10-05] MEDS ORDERED: NORVASC10 MG GT (19:21)
[2019-10-05] MEDS ORDERED: VITAMIN B122500 MCG GT (19:21)
[2019-10-05] MEDS ORDERED: NORCO 5-325 TA1 EAC1 ORAL (19:21)
[2019-10-05] MEDS ORDERED: HEPARIN SO5000 UNIT2 SUBQ (19:21)
--- NOTE | 2019-10-05 20:00 | NUR ---
ED Nurse Note: PTT 143, Heparin drip put on hold per protocol for 60 mins.
[2019-10-05] MEDS: Docusate 100mg cap ORAL SCH (21:00)
--- NOTE | 2019-10-05 21:00 | NUR ---
ED Nurse Note: Heparin drip restarted at 9 units/kg/hr per protocol. Addendum: 10/05/19 at 2111 by IOROPEL ED Nurse Note: Heparin drip restarted at 9 units/kg/hr per protocol. Rate at 14.69 ml/hr.
--- NOTE | 2019-10-05 21:00 | NUR ---
ED Nurse Note: Lodorina held d/t blood pressure 84/67. Colace held d/t patient unable to swallow PO medication.
--- NOTE | 2019-10-05 21:19 | Consultation ---
History of Present Illness General Date patient seen: Oct 05, 2019 Chief Complaint: Upper Respiratory Illness Reason for Consultation: ams Present Illness HPI 73 year old man with history of atrial fibrillation, not on anticoagulation, dysphagia, s/p G-tube, chonic diastolic CHF, HTN, DNR who presented from SN[facility] with dyspnea and hypoxemia, oxygen saturation was reportedly 80 -95% with 15L / min with NR mask. pt is alert x1. non verbal at the time of my visit, information obtain from [facility] papers and discussion with ED team. In ED he was found to be in rapid atrial fibrillation, HR 150s, given IV diltiazem. Other workup showed IRENE and hypernatremia, acute urinary retention with 2 liters of urine obtained after Nugent was placed, RLL infiltrate on CXR and elevated lactate, mildly elevated troponin. Patient given IV abx and referred for telemetry admission. Allergies: Coded Allergies: No Known Allergies (Unverified , 10/05/19) Medication History Scheduled Amlodipine Besylate (Norvasc), 10 MG GT DAILY, (Reported) Ascorbic Acid* (Ascorbic Acid*), 500 MG ORAL DAILY, (Reported) Cyanocobalamin (Vitamin B-12) (Vitamin B12), 1,000 MCG GT DAILY, (Reported) Famotidine* (Pepcid 20mg tablet*), 20 MG GT DAILY, (Reported) Heparin Sod (Porcine) (Heparin Sodium*), 5,000 UNITS SUBQ DAILY, (Reported) Lisinopril (Lisinopril*), 10 MG GT DAILY, (Reported) Multivitamins* (Multivitamins*), 1 TAB GT DAILY, (Reported) Scheduled PRN Hydrocodone Bit/Acetaminophen 5-325* ([place] 5-325 Tablet*), 1 TAB ORAL Q6H PRN for FOR PAIN, (Reported) Ipratropium Xenia 0.5MG/2.5ML (Ipratropium Xenia 0.5MG/2.5ML), 0.5 MG HHN Q6H PRN for Shortness of Breath, (Reported) Patient History Healthcare decision maker Resuscitation status Advanced Directive on File Review of Systems ROS Narrative cc 35 min Physical Exam General Appearance: alert, confused Physical Exam Narrative non focal exam Last 24 Hour Vital Signs Date Time Temp Pulse Resp B/P (MAP) Pulse Ox O2 Delivery O2 Flow Rate FiO2 10/05/19 19:10 100 20 109/56 95 Non-Rebreather 15.0 10/05/19 17:50 99.8 90 18 112/64 94 Non-Rebreather 10/05/19 16:40 100.2 23 97/59 91 Non-Rebreather 10/05/19 14:06 100.2 10/05/19 14:00 100.2 10/05/19 13:20 100.3 10/05/19 12:06 98.2 122 26 120/78 93 Non-Rebreather 15.0 10/05/19 11:45 140 118/76 10/05/19 09:59 145 28 Non-Rebreather 15.0 10/05/19 09:59 98.8 145 28 162/84 90 Non-Rebreather 15.0 10/05/19 09:52 99.0 140 24 180/62 (101) 90 Non-Rebreather 15.0 Laboratory Tests Test 10/05/19 10:15 10/05/19 11:48 10/05/19 17:30 10/05/19 18:27 White Blood Count 22.1 K/UL (4.8-10.8) *H Red Blood Count 5.89 M/UL (4.70-6.10) Hemoglobin 18.3 G/DL (14.2-18.0) *H Hematocrit 56.6 % (42.0-52.0) H Mean Corpuscular Volume 96 FL (80-99) Mean Corpuscular Hemoglobin 31.1 PG (27.0-31.0) H Mean Corpuscular Hemoglobin Concent 32.4 G/DL (32.0-36.0) Red Cell Distribution Width 13.5 % (11.6-14.8) Platelet Count 151 K/UL (150-450) Mean Platelet Volume 11.2 FL (6.5-10.1) H Neutrophils (%) (Auto) % (45.0-75.0) Lymphocytes (%) (Auto) % (20.0-45.0) Monocytes (%) (Auto) % (1.0-10.0) Eosinophils (%) (Auto) % (0.0-3.0) Basophils (%) (Auto) % (0.0-2.0) Differential Total Cells Counted 100 Neutrophils % (Manual) 81 % (45-75) H Lymphocytes % (Manual) 6 % (20-45) L Monocytes % (Manual) 3 % (1-10) Eosinophils % (Manual) 0 % (0-3) Basophils % (Manual) 0 % (0-2) Band Neutrophils 10 % (0-8) H Platelet Estimate Adequate Platelet Morphology Normal Red Blood Cell Morphology Normal Prothrombin Time 14.1 SEC (9.30-11.50) H Prothromb Time International Ratio 1.3 (0.9-1.1) H Activated Partial Thromboplast Time 29 SEC (23-33) > 150 SEC (23-33) *H 143 SEC (23-33) H Urine Color Yellow Urine Appearance Clear Urine pH 5 (4.5-8.0) Urine Specific [place] 1.010 (1.005-1.035) Urine Protein 2+ (NEGATIVE) H Urine Glucose (UA) Negative (NEGATIVE) Urine Ketones Negative (NEGATIVE) Urine Blood 1+ (NEGATIVE) H Urine Nitrite Negative (NEGATIVE) Urine Bilirubin Negative (NEGATIVE) Urine Urobilinogen Normal MG/DL (0.0-1.0) Urine Leukocyte Esterase Negative (NEGATIVE) Urine RBC 0-2 /HPF (0 - 0) H Urine WBC 0 /HPF (0 - 0) Urine Squamous Epithelial Cells None /LPF (NONE/OCC) Urine Bacteria None /HPF (NONE) Arterial Blood pH 7.494 (7.350-7.450) Arterial Blood Partial Pressure CO2 12.6 mmHg (35.0-45.0) *L Arterial Blood Partial Pressure O2 66.6 mmHg (75.0-100.0) L Arterial Blood HCO3 9.5 mmol/L (22.0-26.0) *L Arterial Blood Oxygen Saturation 94.2 % (95-100) L Arterial Blood Base Excess -9.0 (-2-2) L Chucho Test Positive Sodium Level 149 MMOL/L (136-145) H 151 MMOL/L (136-145) H Potassium Level 5.4 MMOL/L (3.5-5.1) H 3.9 MMOL/L (3.5-5.1) Chloride Level 116 MMOL/L (98-107) H 119 MMOL/L (98-107) H Carbon Dioxide Level 16 MMOL/L (21-32) L 16 MMOL/L (21-32) L Anion Gap 17 mmol/L (5-15) H 16 mmol/L (5-15) H Blood Urea Nitrogen 102 mg/dL (7-18) H 100 mg/dL (7-18) H Creatinine 4.3 MG/DL (0.55-1.30) H 3.5 MG/DL (0.55-1.30) H Estimat Glomerular Filtration Rate 13.6 mL/min (>60) 17.2 mL/min (>60) Glucose Level 123 MG/DL (74-106) H 107 MG/DL (74-106) H Lactic Acid Level 3.50 mmol/L (0.4-2.0) H 3.40 mmol/L (0.66-2.22) H Calcium Level 9.4 MG/DL (8.5-10.1) 8.2 MG/DL (8.5-10.1) L Total Bilirubin 0.5 MG/DL (0.2-1.0) Aspartate Amino Transf (AST/SGOT) 27 U/L (15-37) Alanine Aminotransferase (ALT/SGPT) 30 U/L (12-78) Alkaline Phosphatase 68 U/L (46-116) Total Creatine Kinase 151 U/L (26-308) Creatine Kinase MB 1.7 NG/ML (0.0-3.6) Creatine Kinase MB Relative Index 1.1 Troponin I 0.326 ng/mL (0.000-0.056) Pro-B-Type Natriuretic Peptide 96214 pg/mL (0-125) H Total Protein 8.0 G/DL (6.4-8.2) Albumin 2.9 G/DL (3.4-5.0) L Globulin 5.1 g/dL Albumin/Globulin Ratio 0.6 (1.0-2.7) L Microbiology Date/Time Source Procedure Growth Status 10/05/19 10:15 Nasal Nares - Final Complete 10/05/19 10:15 Nasal Nares - Final Complete Height (Feet): 6 Height (Inches): 1.00 Weight (Pounds): 180 Medications Current Medications Medications (Trade) Dose Ordered Sig/Kristopher Route PRN Reason Start Time Stop Time Status Last Admin Dose Admin Acetaminophen (Tylenol) 650 mg Q4H PRN ORAL Mild Pain (Pain Scale 1-3) 10/05/19 15:15 11/04/19 15:14 Al Hydroxide/Mg Hydroxide (Mylanta II) 30 ml Q6H PRN ORAL dyspepsia 10/05/19 15:15 11/04/19 15:14 Albuterol/ Ipratropium (Albuterol/ Ipratropium) 3 ml Q4H PRN HHN Shortness of Breath 10/05/19 15:15 10/10/19 15:14 Aspirin (ASA) 81 mg DAILY ORAL 10/06/19 09:00 11/20/19 08:59 Dextrose 1,000 ml @ 200 mls/hr Q5H IV 10/05/19 19:30 10/06/19 00:30 UNV Dextrose (Dextrose 50%) 25 ml Q30M PRN IV Hypoglycemia 10/05/19 15:15 01/03/20 15:14 Dextrose (Dextrose 50%) 50 ml Q30M PRN IV Hypoglycemia 10/05/19 15:15 01/03/20 15:14 Diphenhydramine HCl (Benadryl) 25 mg Q6H PRN ORAL Itching/Pruritis 10/05/19 15:15 11/04/19 15:14 Docusate Sodium (Colace) 100 mg EVERY 12 HOURS ORAL 10/05/19 21:00 11/04/19 20:59 Heparin Sodium/ Dextrose 500 ml @ 19.595 mls/ hr ADJUST PER PROTOCOL IV 10/05/19 11:15 11/04/19 11:14 10/05/19 12:03 Metoprolol Tartrate (Lopressor) 25 mg EVERY 12 HOURS ORAL 10/05/19 21:00 01/03/20 20:59 Ondansetron HCl (Zofran) 4 mg Q6H PRN IVP Nausea & Vomiting 10/05/19 15:15 11/04/19 15:14 Piperacillin Sod/ Tazobactam Sod 3.375 gm/Sodium Chloride 110 ml @ 27.5 mls/hr EVERY 8 HOURS IVPB 10/05/19 22:00 10/10/19 21:59 UNV Sodium Chloride 1,000 ml @ 70 mls/hr [id number] IV 10/05/19 16:11 11/04/19 16:10 UNV Vancomycin HCl (Vanco rx to dose) 1 ea DAILY PRN MISC Per rx protocol 10/05/19 15:15 11/04/19 15:14 UNV Assessment/Plan Problem List: (1) Severe sepsis ICD Codes: A41.9 - Sepsis, unspecified organism; R65.20 - Severe sepsis without septic shock SNOMED: [id number] Assessment/Plan: acute encephalopathy, non focal Afib RVR Less likely stroke AFib rate control ATB broa spectrum rule out covid Delirium precuations Alo Gaxiola MD Oct 05, 2019 21:19
--- NOTE | 2019-10-05 21:58 | Infectious Diseases Prog Note ---
Assessment/Plan Assessment/Plan Full consult dictated: A) 1) sepsis, leukocytosis, fevers, pna, sob, hypoxia 2) rule-out covid-19 virus infection 3) arf, hd, pmh noted P) 1) zosyn and vancomycin 2) await covid-19 virus pcr testing 3) f/u on cultures 4) thank you Subjective Allergies: Coded Allergies: No Known Allergies (Unverified , 10/05/19) Objective Vital Signs Last 24 Hour Vital Signs Date Time Temp Pulse Resp B/P (MAP) Pulse Ox O2 Delivery O2 Flow Rate FiO2 10/05/19 19:10 100 20 109/56 95 Non-Rebreather 15.0 10/05/19 17:50 99.8 90 18 112/64 94 Non-Rebreather 10/05/19 16:40 100.2 23 97/59 91 Non-Rebreather 10/05/19 14:06 100.2 10/05/19 14:00 100.2 10/05/19 13:20 100.3 10/05/19 12:06 98.2 122 26 120/78 93 Non-Rebreather 15.0 10/05/19 11:45 140 118/76 10/05/19 09:59 145 28 Non-Rebreather 15.0 10/05/19 09:59 98.8 145 28 162/84 90 Non-Rebreather 15.0 10/05/19 09:52 99.0 140 24 180/62 (101) 90 Non-Rebreather 15.0 Height (Feet): 6 Height (Inches): 1.00 Weight (Pounds): 180 Microbiology Date/Time Source Procedure Growth Status 10/05/19 10:15 Nasal Nares - Final Complete 10/05/19 10:15 Nasal Nares - Final Complete Laboratory Tests Test 10/05/19 10:15 10/05/19 11:48 10/05/19 17:30 10/05/19 18:27 White Blood Count 22.1 K/UL (4.8-10.8) *H Red Blood Count 5.89 M/UL (4.70-6.10) Hemoglobin 18.3 G/DL (14.2-18.0) *H Hematocrit 56.6 % (42.0-52.0) H Mean Corpuscular Volume 96 FL (80-99) Mean Corpuscular Hemoglobin 31.1 PG (27.0-31.0) H Mean Corpuscular Hemoglobin Concent 32.4 G/DL (32.0-36.0) Red Cell Distribution Width 13.5 % (11.6-14.8) Platelet Count 151 K/UL (150-450) Mean Platelet Volume 11.2 FL (6.5-10.1) H Neutrophils (%) (Auto) % (45.0-75.0) Lymphocytes (%) (Auto) % (20.0-45.0) Monocytes (%) (Auto) % (1.0-10.0) Eosinophils (%) (Auto) % (0.0-3.0) Basophils (%) (Auto) % (0.0-2.0) Differential Total Cells Counted 100 Neutrophils % (Manual) 81 % (45-75) H Lymphocytes % (Manual) 6 % (20-45) L Monocytes % (Manual) 3 % (1-10) Eosinophils % (Manual) 0 % (0-3) Basophils % (Manual) 0 % (0-2) Band Neutrophils 10 % (0-8) H Platelet Estimate Adequate Platelet Morphology Normal Red Blood Cell Morphology Normal Prothrombin Time 14.1 SEC (9.30-11.50) H Prothromb Time International Ratio 1.3 (0.9-1.1) H Activated Partial Thromboplast Time 29 SEC (23-33) > 150 SEC (23-33) *H 143 SEC (23-33) H Urine Color Yellow Urine Appearance Clear Urine pH 5 (4.5-8.0) Urine Specific [place] 1.010 (1.005-1.035) Urine Protein 2+ (NEGATIVE) H Urine Glucose (UA) Negative (NEGATIVE) Urine Ketones Negative (NEGATIVE) Urine Blood 1+ (NEGATIVE) H Urine Nitrite Negative (NEGATIVE) Urine Bilirubin Negative (NEGATIVE) Urine Urobilinogen Normal MG/DL (0.0-1.0) Urine Leukocyte Esterase Negative (NEGATIVE) Urine RBC 0-2 /HPF (0 - 0) H Urine WBC 0 /HPF (0 - 0) Urine Squamous Epithelial Cells None /LPF (NONE/OCC) Urine Bacteria None /HPF (NONE) Arterial Blood pH 7.494 (7.350-7.450) Arterial Blood Partial Pressure CO2 12.6 mmHg (35.0-45.0) *L Arterial Blood Partial Pressure O2 66.6 mmHg (75.0-100.0) L Arterial Blood HCO3 9.5 mmol/L (22.0-26.0) *L Arterial Blood Oxygen Saturation 94.2 % (95-100) L Arterial Blood Base Excess -9.0 (-2-2) L Chucho Test Positive Sodium Level 149 MMOL/L (136-145) H 151 MMOL/L (136-145) H Potassium Level 5.4 MMOL/L (3.5-5.1) H 3.9 MMOL/L (3.5-5.1) Chloride Level 116 MMOL/L (98-107) H 119 MMOL/L (98-107) H Carbon Dioxide Level 16 MMOL/L (21-32) L 16 MMOL/L (21-32) L Anion Gap 17 mmol/L (5-15) H 16 mmol/L (5-15) H Blood Urea Nitrogen 102 mg/dL (7-18) H 100 mg/dL (7-18) H Creatinine 4.3 MG/DL (0.55-1.30) H 3.5 MG/DL (0.55-1.30) H Estimat Glomerular Filtration Rate 13.6 mL/min (>60) 17.2 mL/min (>60) Glucose Level 123 MG/DL (74-106) H 107 MG/DL (74-106) H Lactic Acid Level 3.50 mmol/L (0.4-2.0) H 3.40 mmol/L (0.66-2.22) H Calcium Level 9.4 MG/DL (8.5-10.1) 8.2 MG/DL (8.5-10.1) L Total Bilirubin 0.5 MG/DL (0.2-1.0) Aspartate Amino Transf (AST/SGOT) 27 U/L (15-37) Alanine Aminotransferase (ALT/SGPT) 30 U/L (12-78) Alkaline Phosphatase 68 U/L (46-116) Total Creatine Kinase 151 U/L (26-308) Creatine Kinase MB 1.7 NG/ML (0.0-3.6) Creatine Kinase MB Relative Index 1.1 Troponin I 0.326 ng/mL (0.000-0.056) Pro-B-Type Natriuretic Peptide 79762 pg/mL (0-125) H Total Protein 8.0 G/DL (6.4-8.2) Albumin 2.9 G/DL (3.4-5.0) L Globulin 5.1 g/dL Albumin/Globulin Ratio 0.6 (1.0-2.7) L Current Medications Medications (Trade) Dose Ordered Sig/Kristopher Route PRN Reason Start Time Stop Time Status Last Admin Dose Admin Acetaminophen (Tylenol) 650 mg Q4H PRN ORAL Mild Pain (Pain Scale 1-3) 10/05/19 15:15 11/04/19 15:14 Al Hydroxide/Mg Hydroxide (Mylanta II) 30 ml Q6H PRN ORAL dyspepsia 10/05/19 15:15 11/04/19 15:14 Albuterol/ Ipratropium (Albuterol/ Ipratropium) 3 ml Q4H PRN HHN Shortness of Breath 10/05/19 15:15 10/10/19 15:14 Aspirin (ASA) 81 mg DAILY ORAL 10/06/19 09:00 11/20/19 08:59 Dextrose 1,000 ml @ 200 mls/hr Q5H IV 10/05/19 19:30 10/06/19 00:30 UNV Dextrose (Dextrose 50%) 25 ml Q30M PRN IV Hypoglycemia 10/05/19 15:15 01/03/20 15:14 Dextrose (Dextrose 50%) 50 ml Q30M PRN IV Hypoglycemia 10/05/19 15:15 01/03/20 15:14 Diphenhydramine HCl (Benadryl) 25 mg Q6H PRN ORAL Itching/Pruritis 10/05/19 15:15 11/04/19 15:14 Docusate Sodium (Colace) 100 mg EVERY 12 HOURS ORAL 10/05/19 21:00 11/04/19 20:59 Heparin Sodium/ Dextrose 500 ml @ 19.595 mls/ hr ADJUST PER PROTOCOL IV 10/05/19 11:15 11/04/19 11:14 10/05/19 12:03 Metoprolol Tartrate (Lopressor) 25 mg EVERY 12 HOURS ORAL 10/05/19 21:00 01/03/20 20:59 Ondansetron HCl (Zofran) 4 mg Q6H PRN IVP Nausea & Vomiting 4/10/20 15:15 11/04/19 15:14 Piperacillin Sod/ Tazobactam Sod 3.375 gm/Sodium Chloride 110 ml @ 27.5 mls/hr EVERY 8 HOURS IVPB 10/05/19 22:00 10/10/19 21:59 UNV Sodium Chloride 1,000 ml @ 70 mls/hr [id number] IV 10/05/19 16:11 11/04/19 16:10 UNV Vancomycin HCl (Vanco rx to dose) 1 ea DAILY PRN MISC Per rx protocol 10/05/19 15:15 11/04/19 15:14 UNV Floyd Sanford MD Oct 05, 2019 21:58
[2019-10-05] MEDS ORDERED: Piperacillin/Tazobactam 3.375 GM in NS 110 ML IVPB SCH (22:00)
[2019-10-05] MEDS: Piperacillin/Tazobactam 3.375 GM in NS 110 ML IVPB SCH (22:37)
[2019-10-06] VITALS (19 sets, daily range): BP systolic 95–135; BP diastolic 63–88
--- NOTE | 2019-10-06 03:17 | NUR ---
ED Nurse Note: Lab contacted to draw blood for 0300 and 0400.
--- NOTE | 2019-10-06 03:44 | Consultation ---
DATE OF CONSULTATION: 10/05/2019 INFECTIOUS DISEASE CONSULTATION CONSULTING PHYSICIAN: Floyd Sanford M.D. ATTENDING PHYSICIAN: Alida Kelly M.D. REFERRING PHYSICIAN: Hemal Pinon M.D. REASON FOR CONSULTATION: Sepsis, fevers, leukocytosis, pneumonia, possible COVID-19 virus infection. CHIEF COMPLAINT: The patient's chief complaint coming into the hospital sepsis, respiratory distress. HISTORY OF PRESENT ILLNESS: This is a 73-year-old male who comes into [facility] with shortness of breath and hypoxia. Patient also has sepsis, fevers, leukocytosis. Patient likely has a pneumonia and patient has been ruled out for COVID-19 virus infection. Patient has apparently been started on Vanco and Zosyn. Patient has elevated white count and sepsis. Infectious Disease consultation is requested. Patient is on Vanco and Zosyn. Patient was seen in the emergency room. REVIEW OF SYSTEMS: Again, he is in the ER. He is currently not on pressors. He is short of breath on a breathing mask. He is poorly responsive. Review of systems limited.CARDIAC: No pressors. GASTROINTESTINAL: No nausea, vomiting, or diarrhea. GENITOURINARY: He has a hemodialysis catheter. PULMONARY: Shortness of breath, cough, congestion. SKIN: No rash. NEUROLOGIC: Poorly responsive. Generalized fatigue, weakness. No seizure activity. Review of systems is limited in this patient. PAST MEDICAL HISTORY: The patient has a past medical history of atrial fibrillation, rapid ventricular response, dysphagia, G-tube, aspiration risk, CHF, hypertension, DNR, diastolic CHF, hypoxemia, shortness of breath, renal failure. ALLERGIES: No known drug allergies. No antibiotic allergies. SOCIAL HISTORY: Negative for smoking, alcohol, or drug abuse. FAMILY HISTORY: Noncontributory. Negative for exposure to tuberculosis or cancer. MEDICATIONS: Upon reviewing the MAR, he is on following medications. He is on aspirin, Zosyn, Vanco, metoprolol, docusate, albuterol, acetaminophen, Zofran, diphenhydramine. He is on Mylanta, dextrose. Outside medications noted and reconciliated. He is also on heparin. PHYSICAL EXAMINATION: VITAL SIGNS: T-max 100.3, currently temperature 99.8, pulse rate 100, respiratory rate 20, blood pressure 109/56, saturation 95%. He is on non-rebreather. GENERAL: Patient is lethargic and weak. He is short of breath on non-rebreather. HEAD AND NECK: Oral exam, no thrush. Eye exam, no icterus. Normocephalic. HEART: No gallop or murmur. Tachycardic. Irregular. ABDOMEN: Soft. Positive bowel sounds. LUNGS: Bilateral rhonchi and rales. SKIN: No rash. MUSCULOSKELETAL: No effusions. Legs are without cellulitis. PERIPHERAL VASCULAR: No cyanosis or gangrene. GENITOURINARY: He is on hemodialysis. NEUROLOGIC: General weakness, poorly responsive. LINE SITES: Without phlebitis. LABORATORY DATA: White count 22.1, hemoglobin 18.3. Creatinine is 3.5. Lactic acid level is 3.5. Urinalysis had 0 white cells. Cultures are pending. Influenza screen is negative. COVID-19 virus testing is pending. Chest x-ray shows right basilar infiltrate. ASSESSMENT AND PLAN: 1. Patient has sepsis, leukocytosis, fevers, likely pneumonia, likely aspiration, healthcare-acquired pneumonia, gram-negative pneumonia, MRSA pneumonia with sepsis, leukocytosis, fevers. Patient is hypoxic, also short of breath. Required non-rebreather. Patient is being ruled out for COVID-19 virus infection. He does have leukocytosis, which most likely suggests bacterial infection. However, continue COVID-19 virus isolation pending COVID-19 virus testing. Continue vancomycin and Zosyn. Overall prognosis is poor. Patient is high risk for arrhythmia also. Continue Vanco and Zosyn. Check followup labs and chest x-ray. Continue treatment for sepsis and pneumonia at this time. 2. Renal failure. 3. Hemodialysis. 4. Dysphagia. G-tube. 5. Aspiration risk. 6. Atrial fibrillation. 7. Anticoagulation. 8. Dysphagia. 9. CHF. 10. Hypertension. 11. No known drug allergies. 12. Social history negative. 13. Family history noncontributory. 14. MAR was noted. 15. Case discussed with RN. 16. Patient was seen in the emergency room. 17. Patient is a DNR at this time. Salam Alkasspooles, M.D. DR: JULIANNA JOB#: [id number] CC:
--- NOTE | 2019-10-06 03:53 | NUR ---
ED Nurse Note: aPTT results received, heparin drip maintained on same dose per protocol.
[2019-10-06] MEDS ORDERED: Vancomycin 1.25gm/NS Premix q24h IVPB SCH (04:00)
[2019-10-06 04:05] LABS: HEMATOCRIT 42.9 % (42.0-52.0); MEAN CORPUSCULAR VOLUME 91 FL (80-99); PLATELET COUNT 97 K/UL (150-450); RED CELL DISTRIBUTION WIDTH 12.7 % (11.6-14.8); WHITE BLOOD COUNT 14.5 K/UL (4.8-10.8)
[2019-10-06 04:11] LABS: ANION GAP 17 mmol/L (5-15); BLOOD UREA NITROGEN 90 mg/dL (7-18); CARBON DIOXIDE 17 MMOL/L (21-32); CHLORIDE 114 MMOL/L (98-107); POTASSIUM 3.9 MMOL/L (3.5-5.1); SODIUM 148 MMOL/L (136-145)
--- NOTE | 2019-10-06 06:23 | NUR ---
ED Nurse Note: Patient transferred onto inpatient [place] bed, tolerated well. pt placed back on monitor and is in stable condition.
--- NOTE | 2019-10-06 07:24 | NUR ---
HAND-OFF: Report given to YUAN Schmitt.
--- NOTE | 2019-10-06 07:30 | NUR ---
ED Nurse Note: received reports from YUAN Garcia. pt appears to be lying in bed with semi silva. on 15L via NR. 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 on heparin drip on 9 units/kg/hr. ptt draw at 0400 and it was 135. per YUAN Garcia no changes on dose. vancom was not hang due to no meds in [facility]. will check the policy and contact the RX to confirm. will access pt more.
--- NOTE | 2019-10-06 08:00 | NUR ---
ED Nurse Note: RN confirmed with [facility] pharmacist regarding heparin drip. pt on 9 units and ptt draw at 0400 which was 135. instructed to hold meds for 60 mins and start 6 units. will draw lab at 1530.
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
--- NOTE | 2019-10-06 08:50 | NUR ---
ED Nurse Note: RX called to change the route to g-tube due to pt unable to swollow pills. RX will work on it.
[2019-10-06] MEDS: Docusate 100mg cap ORAL SCH ×2 (09:00→21:09)
--- NOTE | 2019-10-06 10:00 | NUR ---
ED Nurse Note: pt turns to left lateral side. no facial grimacing or moaning noted. will cont monitor.
--- NOTE | 2019-10-06 10:33 | Nephrology Progress Note ---
Assessment/Plan Plan #Acute renal failure - concerns for ATN in the setting of sepsis #Hyperkalemia due to renal failure #lactic acidosis #Sepsis likely due to pneumonia r/o COVID #Hypoxemic respiratory failure r/o COVID #NSTEMI- likely demand ischemia - check UA and urine chem - continue 1/2 NS for hydration - repeat PM BMP - trend lactic acid - antiiotic per ID - avoid supratherapeutic vanco level - 2d echo - cardiology eval Subjective ROS Limited/Unobtainable: Yes Subjective remains on non-rebreather mask Cr down to 3 WBC downtrending sodium 148 Objective Objective Last 24 Hour Vital Signs Date Time Temp Pulse Resp B/P (MAP) Pulse Ox O2 Delivery O2 Flow Rate FiO2 10/06/19 10:00 98.3 87 23 110/73 100 Non-Rebreather 15.0 10/06/19 09:30 98.0 97 22 106/72 96 Non-Rebreather 15.0 10/06/19 09:00 96 22 106/68 100 Non-Rebreather 15.0 10/06/19 09:00 106/68 10/06/19 08:30 94 21 135/84 100 Non-Rebreather 15.0 10/06/19 08:00 73 19 111/78 100 Non-Rebreather 15.0 10/06/19 07:30 98.1 97 23 101/63 97 Non-Rebreather 15.0 10/06/19 07:30 74 22 Non-Rebreather 15.0 10/06/19 05:10 97 23 103/81 97 Non-Rebreather 15.0 10/06/19 02:15 84 22 110/88 100 Non-Rebreather 15.0 10/06/19 00:12 97 23 95/69 96 Non-Rebreather 15.0 10/05/19 23:04 76 16 98/68 96 Non-Rebreather 15.0 10/05/19 21:23 88 24 102/82 95 Non-Rebreather 15.0 10/05/19 21:00 85 84/67 10/05/19 19:10 100 20 109/56 95 Non-Rebreather 15.0 10/05/19 17:50 99.8 90 18 112/64 94 Non-Rebreather 10/05/19 16:40 100.2 23 97/59 91 Non-Rebreather 10/05/19 14:06 100.2 10/05/19 14:00 100.2 10/05/19 13:20 100.3 10/05/19 12:06 98.2 122 26 120/78 93 Non-Rebreather 15.0 10/05/19 11:45 140 118/76 Intake and Output 10/05/19 10/06/19 19:00 07:00 Intake Total 9166.760 ml Output Total 2600 ml Balance 6566.760 ml Intake IV Total 9166.760 ml Output Urine Total 2600 ml Laboratory Tests 10/05/19 11:48: Lactic Acid Level 3.40H 10/05/19 17:30: Activated Partial Thromboplast Time > 150*H, Sodium Level 151H, Potassium Level 3.9, Chloride Level 119H, Carbon Dioxide Level 16L, Anion Gap 16H, Blood Urea Nitrogen 100H, Creatinine 3.5H, Estimat Glomerular Filtration Rate 17.2, Glucose Level 107H, Calcium Level 8.2L 10/05/19 18:27: Activated Partial Thromboplast Time 143H 10/06/19 03:53: Activated Partial Thromboplast Time 135H, Sodium Level 148H, Potassium Level 3.9 , Chloride Level 114H, Carbon Dioxide Level 17L, Anion Gap 17H, Blood Urea Nitrogen 90H, Creatinine 3.0H, Estimat Glomerular Filtration Rate 20.6, Glucose Level 133H, Calcium Level 8.0L, White Blood Count 14.5H, Red Blood Count 4.70, Hemoglobin 15.0, Hematocrit 42.9, Mean Corpuscular Volume 91, Mean Corpuscular Hemoglobin 31.9H, Mean Corpuscular Hemoglobin Concent 35.0, Red Cell Distribution Width 12.7, Platelet Count 97L, Mean Platelet Volume 10.7H, Neutrophils (%) (Auto) , Lymphocytes (%) (Auto) , Monocytes (%) (Auto) , Eosinophils (%) (Auto) , Basophils (%) (Auto) , Neutrophils % (Manual) [Pending] , Lymphocytes % (Manual) [Pending], Platelet Estimate [Pending], Platelet Morphology [Pending], Troponin I 0.393H, Pro-B-Type Natriuretic Peptide 76634T, Thyroid Stimulating Hormone (TSH) 0.233L, Free Thyroxine 1.27 Height (Feet): 6 Height (Inches): 1.00 Weight (Pounds): 180 Charlee Tipton M.D. Oct 06, 2019 10:33
[2019-10-06] MEDS ORDERED: Aspirin Baby 81mg ONE (11:08)
[2019-10-06] MEDS ORDERED: Zosyn 3.375gm inj ONE ×2 (11:11→22:53)
[2019-10-06] MEDS: Aspirin Baby 81mg ORAL SCH (11:13)
[2019-10-06] MEDS: Piperacillin/Tazobactam 3.375 GM in NS 110 ML IVPB SCH ×2 (11:13→22:55)
--- NOTE | 2019-10-06 12:00 | NUR ---
ED Nurse Note: pt appears to be more awake. make eye contact. will wait for the ICU bed.
[2019-10-06 13:03] LABS: ANION GAP 15 mmol/L (5-15); BLOOD UREA NITROGEN 86 mg/dL (7-18); CALCIUM 8.1 MG/DL (8.5-10.1); CARBON DIOXIDE 17 MMOL/L (21-32); CHLORIDE 115 MMOL/L (98-107); CREATININE 2.7 MG/DL (0.55-1.30); POTASSIUM 3.9 MMOL/L (3.5-5.1); SODIUM 147 MMOL/L (136-145)
--- NOTE | 2019-10-06 13:09 | NUR ---
ED Nurse Note: Dr. Whitehead at the bed side.
--- NOTE | 2019-10-06 13:28 | NUR ---
ED Nurse Note: Dr. Whitehead ([phone])
[2019-10-06] MEDS ORDERED: Vancomycin 1gm/D5W 275ml IVPB ONE ×2 (14:00)
[2019-10-06] MEDS ORDERED: Heparin 25,000u/D5W 500ml 500 ML IV SCH ×2 (14:00→16:00)
--- NOTE | 2019-10-06 14:00 | NUR ---
ED Nurse Note: RN paged Dr. Whitehead due to plate count change [address] will repeat troponin and decide.
--- NOTE | 2019-10-06 15:10 | General Progress Note ---
Assessment/Plan Assessment/Plan: 73 year old man with history of atrial fibrillation, not on anticoagulation, dysphagia, s/p G-tube, chonic diastolic CHF, HTN, DNR who presented from SNF with dyspnea and hypoxemia, rapid afib, RLL pneumonia and severe sepsis, likely IRENE, hyperkalemia, metabolic acidosis. #Severe sepsis #RLL gram negative pneumonia #Acute hypoxic respiratory failure -cont. in medical care, telemetry unit -COVID19 rule out -Droplet precautions -Cont. broad spectrum antibiotics, vancomycin and Zosyn -Supplemental oxygen, inhaled bronchodilators -ID and Pulm consulted #Suspected IRENE #Hyperkalemia #Metabolic acidosis -IV hydration -Avoid nephrotoxic meds -Monitor BMP -10/04: s/p HD cath placed right femoral by gen surgery -Nephrology consulted, HD per nephro #Rapid afib -cardiac monitoring -trop 0.393 -Cardiology following: metoprolol, may need to change to digoxin or amio if pressures are borderline low -continue heparin drip #Thrombocytopenia -Plt 151 on admission, now 97 -no signs of bleeding at this time -monitor for signs of bleeding -will d/w Cardio given pt is on heparin ggt CODE Status: DNR, POLST in custodial transfer papers VTE PPx: Heparin ggt I spent 35 minutes on this patient's case, >50% time was dedicated to counseling and/or care coordination with RN, Cardiology. An additional 30 mins was spent on review of medical records including prior hospital records, consult notes, progress notes, procedures, imaging, labs, hemodynamics, and other clinical documentation. Subjective ROS Limited/Unobtainable: Yes - minimally verbal Allergies: Coded Allergies: No Known Allergies (Unverified , 10/05/19) Subjective F/u for sepsis, respiratory failure, pending COVID r/o. Patient more alert today, remains minimally verbal otherwise appears comfortable. Objective Last 24 Hour Vital Signs Date Time Temp Pulse Resp B/P (MAP) Pulse Ox O2 Delivery O2 Flow Rate FiO2 10/06/19 14:00 98.1 93 21 99/68 99 Non-Rebreather 15.0 10/06/19 13:00 87 21 108/72 100 Non-Rebreather 15.0 10/06/19 12:00 98.5 83 23 106/67 100 Non-Rebreather 15.0 10/06/19 11:00 100 22 117/68 97 Non-Rebreather 15.0 10/06/19 10:00 98.3 87 23 110/73 100 Non-Rebreather 15.0 10/06/19 09:30 98.0 97 22 106/72 96 Non-Rebreather 15.0 10/06/19 09:00 96 22 106/68 100 Non-Rebreather 15.0 10/06/19 09:00 106/68 10/06/19 08:30 94 21 135/84 100 Non-Rebreather 15.0 10/06/19 08:00 73 19 111/78 100 Non-Rebreather 15.0 10/06/19 07:30 98.1 97 23 101/63 97 Non-Rebreather 15.0 10/06/19 07:30 74 22 Non-Rebreather 15.0 10/06/19 05:10 97 23 103/81 97 Non-Rebreather 15.0 10/06/19 02:15 84 22 110/88 100 Non-Rebreather 15.0 10/06/19 00:12 97 23 95/69 96 Non-Rebreather 15.0 10/05/19 23:04 76 16 98/68 96 Non-Rebreather 15.0 10/05/19 21:23 88 24 102/82 95 Non-Rebreather 15.0 10/05/19 21:00 85 84/67 10/05/19 19:10 100 20 109/56 95 Non-Rebreather 15.0 10/05/19 17:50 99.8 90 18 112/64 94 Non-Rebreather 10/05/19 16:40 100.2 23 97/59 91 Non-Rebreather Intake and Output 10/05/19 10/06/19 19:00 07:00 Intake Total 9166.760 ml Output Total 2600 ml Balance 6566.760 ml Intake IV Total 9166.760 ml Output Urine Total 2600 ml # Bowel Movements 1 Laboratory Tests 10/05/19 17:30: Activated Partial Thromboplast Time > 150*H, Sodium Level 151H, Potassium Level 3.9, Chloride Level 119H, Carbon Dioxide Level 16L, Anion Gap 16H, Blood Urea Nitrogen 100H, Creatinine 3.5H, Estimat Glomerular Filtration Rate 17.2, Glucose Level 107H, Calcium Level 8.2L 10/05/19 18:27: Activated Partial Thromboplast Time 143H 10/06/19 03:53: Activated Partial Thromboplast Time 135H, Sodium Level 148H, Potassium Level 3.9 , Chloride Level 114H, Carbon Dioxide Level 17L, Anion Gap 17H, Blood Urea Nitrogen 90H, Creatinine 3.0H, Estimat Glomerular Filtration Rate 20.6, Glucose Level 133H, Calcium Level 8.0L, White Blood Count 14.5H, Red Blood Count 4.70, Hemoglobin 15.0, Hematocrit 42.9, Mean Corpuscular Volume 91, Mean Corpuscular Hemoglobin 31.9H, Mean Corpuscular Hemoglobin Concent 35.0, Red Cell Distribution Width 12.7, Platelet Count 97L, Mean Platelet Volume 10.7H, Neutrophils (%) (Auto) , Lymphocytes (%) (Auto) , Monocytes (%) (Auto) , Eosinophils (%) (Auto) , Basophils (%) (Auto) , Differential Total Cells Counted 100, Neutrophils % (Manual) 80H, Lymphocytes % (Manual) 11L, Monocytes % (Manual) 8, Eosinophils % (Manual) 1, Basophils % (Manual) 0, Band Neutrophils 0, Platelet Estimate DecreasedL, Platelet Morphology Normal, Red Blood Cell Morphology Normal, Troponin I 0.393H, Pro-B-Type Natriuretic Peptide 86400T, Thyroid Stimulating Hormone (TSH) 0.233L, Free Thyroxine 1.27 10/06/19 12:30: Sodium Level 147H, Potassium Level 3.9, Chloride Level 115H, Carbon Dioxide Level 17L, Anion Gap 15, Blood Urea Nitrogen 86H, Creatinine 2.7H, Estimat Glomerular Filtration Rate 23.2, Glucose Level 134H, Calcium Level 8.1L, Phosphorus Level 4.2, Magnesium Level 1.8 10/06/19 14:30: Activated Partial Thromboplast Time [Pending], Troponin I [Pending] Height (Feet): 6 Height (Inches): 1.00 Weight (Pounds): 180 Objective General Appearance: alert, confused HEENT: atraumatic, anicteric Neck: supple, normal inspection Respiratory/Chest: lungs clear, normal breath sounds, no respiratory distress, no accessory muscle use Cardiovascular/Chest: irregularly irregular however rate controlled Abdomen: non tender, soft Ext: Rt femoral cath c/d/i Whitehead,NguyenVy M.D. Oct 06, 2019 15:10
--- NOTE | 2019-10-06 15:30 | NUR ---
ED Nurse Note: will cont on 6 units/kg/hr of heparin due to therapeutic range of ptt. RN confirmed with [facility] pharmacist. repeat ptt next morning around 0400.
--- NOTE | 2019-10-06 16:00 | NUR ---
ED Nurse Note: pt spontaneously open his eyes and mumbling. unable to communicate but appears to be more awake. will wait for ICU bed.
--- NOTE | 2019-10-06 16:28 | NUR ---
ED Nurse Note: lactic acid sent to lab
--- NOTE | 2019-10-06 17:54 | Cardiac Electrophysiology PN ---
Assessment/Plan Assessment/Plan 1. Atrial fib with RVR. On Lopressor 25 bid and heparin drip. HR better 2. Respiratory failure on face mask. 3. NSTEMI, could be due to atrial fib with RVR and demand ischemia 4. PNA and sepsis on iv ABX. Covid was negative at [facility]. Another COVID pending. 5. HTN on Lopressor 25 bid 6. S/P PEG 7. DNR DW RN in ER Subjective Subjective In ER confused on face mask and heparin drip awaiting tele bed. In atrial fib with rate 100s Objective Last 24 Hour Vital Signs Date Time Temp Pulse Resp B/P (MAP) Pulse Ox O2 Delivery O2 Flow Rate FiO2 10/06/19 16:00 92 21 102/64 96 Non-Rebreather 15.0 10/06/19 15:00 98.0 96 18 97/65 97 Non-Rebreather 15.0 10/06/19 14:00 98.1 93 21 99/68 99 Non-Rebreather 15.0 10/06/19 13:00 87 21 108/72 100 Non-Rebreather 15.0 10/06/19 12:00 98.5 83 23 106/67 100 Non-Rebreather 15.0 10/06/19 11:00 100 22 117/68 97 Non-Rebreather 15.0 10/06/19 10:00 98.3 87 23 110/73 100 Non-Rebreather 15.0 10/06/19 09:30 98.0 97 22 106/72 96 Non-Rebreather 15.0 10/06/19 09:00 96 22 106/68 100 Non-Rebreather 15.0 10/06/19 09:00 106/68 10/06/19 08:30 94 21 135/84 100 Non-Rebreather 15.0 10/06/19 08:00 73 19 111/78 100 Non-Rebreather 15.0 10/06/19 07:30 98.1 97 23 101/63 97 Non-Rebreather 15.0 10/06/19 07:30 74 22 Non-Rebreather 15.0 10/06/19 05:10 97 23 103/81 97 Non-Rebreather 15.0 10/06/19 02:15 84 22 110/88 100 Non-Rebreather 15.0 10/06/19 00:12 97 23 95/69 96 Non-Rebreather 15.0 10/05/19 23:04 76 16 98/68 96 Non-Rebreather 15.0 10/05/19 21:23 88 24 102/82 95 Non-Rebreather 15.0 10/05/19 21:00 85 84/67 10/05/19 19:10 100 20 109/56 95 Non-Rebreather 15.0 10/05/19 17:50 99.8 90 18 112/64 94 Non-Rebreather Intake and Output 10/05/19 10/06/19 19:00 07:00 Intake Total 9166.760 ml Output Total 2600 ml Balance 6566.760 ml Intake IV Total 9166.760 ml Output Urine Total 2600 ml # Bowel Movements 1 Laboratory Tests Test 10/05/19 18:27 10/06/19 03:53 10/06/19 12:30 10/06/19 14:30 Activated Partial Thromboplast Time 143 SEC (23-33) H 135 SEC (23-33) H 82 SEC (23-33) H White Blood Count 14.5 K/UL (4.8-10.8) H Red Blood Count 4.70 M/UL (4.70-6.10) Hemoglobin 15.0 G/DL (14.2-18.0) Hematocrit 42.9 % (42.0-52.0) Mean Corpuscular Volume 91 FL (80-99) Mean Corpuscular Hemoglobin 31.9 PG (27.0-31.0) H Mean Corpuscular Hemoglobin Concent 35.0 G/DL (32.0-36.0) Red Cell Distribution Width 12.7 % (11.6-14.8) Platelet Count 97 K/UL (150-450) L Mean Platelet Volume 10.7 FL (6.5-10.1) H Neutrophils (%) (Auto) % (45.0-75.0) Lymphocytes (%) (Auto) % (20.0-45.0) Monocytes (%) (Auto) % (1.0-10.0) Eosinophils (%) (Auto) % (0.0-3.0) Basophils (%) (Auto) % (0.0-2.0) Differential Total Cells Counted 100 Neutrophils % (Manual) 80 % (45-75) H Lymphocytes % (Manual) 11 % (20-45) L Monocytes % (Manual) 8 % (1-10) Eosinophils % (Manual) 1 % (0-3) Basophils % (Manual) 0 % (0-2) Band Neutrophils 0 % (0-8) Platelet Estimate Decreased L Platelet Morphology Normal Red Blood Cell Morphology Normal Sodium Level 148 MMOL/L (136-145) H 147 MMOL/L (136-145) H Potassium Level 3.9 MMOL/L (3.5-5.1) 3.9 MMOL/L (3.5-5.1) Chloride Level 114 MMOL/L (98-107) H 115 MMOL/L (98-107) H Carbon Dioxide Level 17 MMOL/L (21-32) L 17 MMOL/L (21-32) L Anion Gap 17 mmol/L (5-15) H 15 mmol/L (5-15) Blood Urea Nitrogen 90 mg/dL (7-18) H 86 mg/dL (7-18) H Creatinine 3.0 MG/DL (0.55-1.30) H 2.7 MG/DL (0.55-1.30) H Estimat Glomerular Filtration Rate 20.6 mL/min (>60) 23.2 mL/min (>60) Glucose Level 133 MG/DL (74-106) H 134 MG/DL (74-106) H Calcium Level 8.0 MG/DL (8.5-10.1) L 8.1 MG/DL (8.5-10.1) L Troponin I 0.393 ng/mL (0.000-0.056) 0.281 ng/mL (0.000-0.056) Pro-B-Type Natriuretic Peptide 15790 pg/mL (0-125) H Thyroid Stimulating Hormone (TSH) 0.233 uiU/mL (0.358-3.740) Free Thyroxine 1.27 NG/DL (0.76-1.46) Phosphorus Level 4.2 MG/DL (2.5-4.9) Magnesium Level 1.8 MG/DL (1.8-2.4) Test 10/06/19 16:20 Lactic Acid Level 2.10 mmol/L (0.4-2.0) H Microbiology Date/Time Source Procedure Growth Status 10/05/19 10:15 Nasal Nares - Final Complete 10/05/19 10:15 Nasal Nares - Final Complete Objective HEART: Tachycardic. Irregular. ABDOMEN: Soft. Positive bowel sounds. LUNGS: Bilateral rhonchi and rales. SKIN: No rash. MUSCULOSKELETAL: No effusions. Legs are without cellulitis. PERIPHERAL VASCULAR: No cyanosis or gangrene. GENITOURINARY: He is on hemodialysis. NEUROLOGIC: General weakness, poorly responsive. LINE SITES: Without phlebitis. Kei Adams MD Oct 06, 2019 17:54
--- NOTE | 2019-10-06 17:56 | NUR ---
ED Nurse Note: lactic acid reflux sent.
[2019-10-06] MEDS ORDERED: Eliquis 2.5mg tablet ORAL SCH (18:00)
--- NOTE | 2019-10-06 18:00 | Consultation ---
DATE OF CONSULTATION: 10/06/2019 PULMONARY CONSULTATION CONSULTING PHYSICIAN: Dejan Lindsey MD. HISTORY OF PRESENT ILLNESS: This is a 73-year-old male with history of atrial fibrillation, dysphagia, chronic G-tube, CHF, hypertension, and DNR status, sent in from shelter with dyspnea. The patient was hypoxic and required to be on non-rebreather mask. The patient is currently still in the ER. The patient was found to have renal failure with hypernatremia. There was also retention of urine and Nugent was placed. The patient's x-ray showed right lung pneumonia. He was also found to have elevated lactate and elevated troponin. The patient has been admitted for IV antibiotic therapy and further investigation. FAMILY HISTORY: None. SOCIAL HISTORY: The patient is a shelter resident. MEDICATIONS: His list of medications includes IV fluids, Tylenol, Mylanta, aspirin, Colace, DuoNebs, heparin drip, metoprolol, Zosyn, and vancomycin. ALLERGIES: None reported. CODE STATUS: DNR. REVIEW OF SYSTEMS: Unreliable. PHYSICAL EXAMINATION: GENERAL: Reveals a 73-year-old male. HEENT: Unremarkable. CHEST: Shows decreased breath sounds bilaterally with right basilar crackles. HEART: Normal heart sounds. ABDOMEN: Soft. EXTREMITIES: There is no appreciable edema. LABORATORY DATA: Lab testing shows white count 20,000 and now 14,000, hemoglobin is 15. Sodium 148, creatinine is 3.0. TSH 0.23. Troponin 0.39. Coags, INR is 1.3, PTT 135. ABG is pH 7.49, pCO2 of 12, and pO2 of 66; this is on non-rebreather mask. is negative for influenza A and B. X-ray of chest was obtained, which shows right lung pneumonia. IMPRESSION: 1. Sepsis. 2. Right lung pneumonia. 3. Acute renal failure. 4. Hypernatremia. 5. senior care resident. 6. Hypoxemia. DISCUSSION: Admit to the hospital. Agree with antibiotics. Rate control with Cardizem. IV fluids. Continue non-rebreather mask. May require intubation; however, I note the patient is DNR. We will follow carefully as and senior technical specialist. Dejan Lindsey M.D. DR: STARR JOB#: [id number] CC:
--- NOTE | 2019-10-06 18:20 | NUR ---
ED Nurse Note: Dr. Whitehead paged for eliquis
--- NOTE | 2019-10-06 18:40 | NUR ---
ED Nurse Note: RN called RX to change the route of eliquis to g-tube due to pt is unable to swallow the pill.
--- NOTE | 2019-10-06 18:44 | NUR ---
ED Nurse Note: due to low plate count and high troponin, per Dr. Adams, heparin drip stopped and changed to Eliquis.
--- NOTE | 2019-10-06 19:12 | Neurology Progress Note ---
Interim History Interim History ROS Limited/Unobtainable: Yes - minimally verbal Interim History pending covid rule out minimally verbal Objective Physical Exam Last Vital Signs Date Time Temp Pulse Resp B/P (MAP) Pulse Ox O2 Delivery O2 Flow Rate FiO2 10/06/19 18:00 101 21 105/74 100 Non-Rebreather 15.0 10/06/19 15:00 98.0 Laboratory Tests Test 10/06/19 03:53 10/06/19 12:30 10/06/19 14:30 10/06/19 16:20 White Blood Count 14.5 K/UL (4.8-10.8) H Red Blood Count 4.70 M/UL (4.70-6.10) Hemoglobin 15.0 G/DL (14.2-18.0) Hematocrit 42.9 % (42.0-52.0) Mean Corpuscular Volume 91 FL (80-99) Mean Corpuscular Hemoglobin 31.9 PG (27.0-31.0) H Mean Corpuscular Hemoglobin Concent 35.0 G/DL (32.0-36.0) Red Cell Distribution Width 12.7 % (11.6-14.8) Platelet Count 97 K/UL (150-450) L Mean Platelet Volume 10.7 FL (6.5-10.1) H Neutrophils (%) (Auto) % (45.0-75.0) Lymphocytes (%) (Auto) % (20.0-45.0) Monocytes (%) (Auto) % (1.0-10.0) Eosinophils (%) (Auto) % (0.0-3.0) Basophils (%) (Auto) % (0.0-2.0) Differential Total Cells Counted 100 Neutrophils % (Manual) 80 % (45-75) H Lymphocytes % (Manual) 11 % (20-45) L Monocytes % (Manual) 8 % (1-10) Eosinophils % (Manual) 1 % (0-3) Basophils % (Manual) 0 % (0-2) Band Neutrophils 0 % (0-8) Platelet Estimate Decreased L Platelet Morphology Normal Red Blood Cell Morphology Normal Activated Partial Thromboplast Time 135 SEC (23-33) H 82 SEC (23-33) H Sodium Level 148 MMOL/L (136-145) H 147 MMOL/L (136-145) H Potassium Level 3.9 MMOL/L (3.5-5.1) 3.9 MMOL/L (3.5-5.1) Chloride Level 114 MMOL/L (98-107) H 115 MMOL/L (98-107) H Carbon Dioxide Level 17 MMOL/L (21-32) L 17 MMOL/L (21-32) L Anion Gap 17 mmol/L (5-15) H 15 mmol/L (5-15) Blood Urea Nitrogen 90 mg/dL (7-18) H 86 mg/dL (7-18) H Creatinine 3.0 MG/DL (0.55-1.30) H 2.7 MG/DL (0.55-1.30) H Estimat Glomerular Filtration Rate 20.6 mL/min (>60) 23.2 mL/min (>60) Glucose Level 133 MG/DL (74-106) H 134 MG/DL (74-106) H Calcium Level 8.0 MG/DL (8.5-10.1) L 8.1 MG/DL (8.5-10.1) L Troponin I 0.393 ng/mL (0.000-0.056) 0.281 ng/mL (0.000-0.056) Pro-B-Type Natriuretic Peptide 24242 pg/mL (0-125) H Thyroid Stimulating Hormone (TSH) 0.233 uiU/mL (0.358-3.740) Free Thyroxine 1.27 NG/DL (0.76-1.46) Phosphorus Level 4.2 MG/DL (2.5-4.9) Magnesium Level 1.8 MG/DL (1.8-2.4) Lactic Acid Level 2.10 mmol/L (0.4-2.0) H Test 10/06/19 18:00 Lactic Acid Level 2.00 mmol/L (0.66-2.22) Impression/Recommendations Problems: (1) Severe sepsis Alo Gaxiola MD Oct 06, 2019 19:12
--- NOTE | 2019-10-06 19:21 | NUR ---
HAND-OFF: Report given to YUAN Garcia. Endorsed eliquis needs to be give.
--- NOTE | 2019-10-06 19:24 | NUR ---
ED Nurse Note: Recieved report from YUAN Schmitt. Patient resting in bed, no acute distress noted.
[2019-10-06] MEDS: Eliquis 2.5mg tablet GT SCH (19:30)
--- NOTE | 2019-10-06 19:53 | Surgery Progress Note ---
Surgery Progress Note Subjective Procedure Performed Right femoral temporary hemodialysis catheter insertion Additional Comments minimally responsive labs noted wbc improved lactic trending down covid pending Objective Last 24 Hour Vital Signs Date Time Temp Pulse Resp B/P (MAP) Pulse Ox O2 Delivery O2 Flow Rate FiO2 10/06/19 19:25 100 26 105/66 96 Non-Rebreather 15.0 10/06/19 18:00 101 21 105/74 100 Non-Rebreather 15.0 10/06/19 17:00 73 25 109/64 98 Non-Rebreather 15.0 10/06/19 16:00 92 21 102/64 96 Non-Rebreather 15.0 10/06/19 15:00 98.0 96 18 97/65 97 Non-Rebreather 15.0 10/06/19 14:00 98.1 93 21 99/68 99 Non-Rebreather 15.0 10/06/19 13:00 87 21 108/72 100 Non-Rebreather 15.0 10/06/19 12:00 98.5 83 23 106/67 100 Non-Rebreather 15.0 10/06/19 11:00 100 22 117/68 97 Non-Rebreather 15.0 10/06/19 10:00 98.3 87 23 110/73 100 Non-Rebreather 15.0 10/06/19 09:30 98.0 97 22 106/72 96 Non-Rebreather 15.0 10/06/19 09:00 96 22 106/68 100 Non-Rebreather 15.0 10/06/19 09:00 106/68 10/06/19 08:30 94 21 135/84 100 Non-Rebreather 15.0 10/06/19 08:00 73 19 111/78 100 Non-Rebreather 15.0 10/06/19 07:30 98.1 97 23 101/63 97 Non-Rebreather 15.0 10/06/19 07:30 74 22 Non-Rebreather 15.0 10/06/19 05:10 97 23 103/81 97 Non-Rebreather 15.0 10/06/19 02:15 84 22 110/88 100 Non-Rebreather 15.0 10/06/19 00:12 97 23 95/69 96 Non-Rebreather 15.0 10/05/19 23:04 76 16 98/68 96 Non-Rebreather 15.0 10/05/19 21:23 88 24 102/82 95 Non-Rebreather 15.0 10/05/19 21:00 85 84/67 I&O Intake and Output 10/05/19 10/06/19 19:00 07:00 Intake Total 9166.760 ml Output Total 2600 ml Balance 6566.760 ml Intake IV Total 9166.760 ml Output Urine Total 2600 ml # Bowel Movements 1 Dressing: dry Cardiovascular: RSR Respiratory: decreased breath sounds Abdomen: soft, non-tender, present bowel sounds Extremities: no cyanosis Laboratory Tests Test 10/06/19 03:53 10/06/19 12:30 10/06/19 14:30 10/06/19 16:20 White Blood Count 14.5 K/UL (4.8-10.8) H Red Blood Count 4.70 M/UL (4.70-6.10) Hemoglobin 15.0 G/DL (14.2-18.0) Hematocrit 42.9 % (42.0-52.0) Mean Corpuscular Volume 91 FL (80-99) Mean Corpuscular Hemoglobin 31.9 PG (27.0-31.0) H Mean Corpuscular Hemoglobin Concent 35.0 G/DL (32.0-36.0) Red Cell Distribution Width 12.7 % (11.6-14.8) Platelet Count 97 K/UL (150-450) L Mean Platelet Volume 10.7 FL (6.5-10.1) H Neutrophils (%) (Auto) % (45.0-75.0) Lymphocytes (%) (Auto) % (20.0-45.0) Monocytes (%) (Auto) % (1.0-10.0) Eosinophils (%) (Auto) % (0.0-3.0) Basophils (%) (Auto) % (0.0-2.0) Differential Total Cells Counted 100 Neutrophils % (Manual) 80 % (45-75) H Lymphocytes % (Manual) 11 % (20-45) L Monocytes % (Manual) 8 % (1-10) Eosinophils % (Manual) 1 % (0-3) Basophils % (Manual) 0 % (0-2) Band Neutrophils 0 % (0-8) Platelet Estimate Decreased L Platelet Morphology Normal Red Blood Cell Morphology Normal Activated Partial Thromboplast Time 135 SEC (23-33) H 82 SEC (23-33) H Sodium Level 148 MMOL/L (136-145) H 147 MMOL/L (136-145) H Potassium Level 3.9 MMOL/L (3.5-5.1) 3.9 MMOL/L (3.5-5.1) Chloride Level 114 MMOL/L (98-107) H 115 MMOL/L (98-107) H Carbon Dioxide Level 17 MMOL/L (21-32) L 17 MMOL/L (21-32) L Anion Gap 17 mmol/L (5-15) H 15 mmol/L (5-15) Blood Urea Nitrogen 90 mg/dL (7-18) H 86 mg/dL (7-18) H Creatinine 3.0 MG/DL (0.55-1.30) H 2.7 MG/DL (0.55-1.30) H Estimat Glomerular Filtration Rate 20.6 mL/min (>60) 23.2 mL/min (>60) Glucose Level 133 MG/DL (74-106) H 134 MG/DL (74-106) H Calcium Level 8.0 MG/DL (8.5-10.1) L 8.1 MG/DL (8.5-10.1) L Troponin I 0.393 ng/mL (0.000-0.056) 0.281 ng/mL (0.000-0.056) Pro-B-Type Natriuretic Peptide 28551 pg/mL (0-125) H Thyroid Stimulating Hormone (TSH) 0.233 uiU/mL (0.358-3.740) Free Thyroxine 1.27 NG/DL (0.76-1.46) Phosphorus Level 4.2 MG/DL (2.5-4.9) Magnesium Level 1.8 MG/DL (1.8-2.4) Lactic Acid Level 2.10 mmol/L (0.4-2.0) H Test 10/06/19 18:00 Lactic Acid Level 2.00 mmol/L (0.66-2.22) Plan Problems: (1) Severe sepsis Assessment & Plan: 73-year-old male with multiple comorbidities presents from alf with shortness of breath. Leukocytosis, lactic acidosis, abnormal electrolytes, renal insufficiency, sepsis. Discussed with PCP and doubling machine operator and plan for urgent dialysis given patient's condition. He is fairly ill and will likely deteriorate requiring full care measures. Shortness of breath and respiratory status likely related potentially to CO VID and until diagnosed evaluated all cautions need to be taken. Urgent hemodialysis catheter placed in the emergency department by myself. Full precautions taken. See note. Will monitor and follow with recommendations. Thank you for let me precipitate patient's care trend labs iv fluids cardio eval - anticoag abx as per id discussed with Orville Ceballos Oct 06, 2019 19:53
[2019-10-06] MEDS ORDERED: Docusate 100mg cap ORAL ONE (21:07)
[2019-10-07 00:41] VITALS: BP 112/75
--- NOTE | 2019-10-07 01:14 | Consultation ---
DATE OF CONSULTATION: 10/06/2019 PULMONARY CONSULTATION CONSULTING PHYSICIAN: Dejan Lindsey MD. HISTORY OF PRESENT ILLNESS: This is a 73-year-old male with history of atrial fibrillation, dysphagia, chronic G-tube, CHF, hypertension, and DNR status, sent in from group home with dyspnea. The patient was hypoxic and required to be on non-rebreather mask. The patient is currently still in the ER. The patient was found to have renal failure with hypernatremia. There was also retention of urine and Nugent was placed. The patient's x-ray showed right lung pneumonia. He was also found to have elevated lactate and elevated troponin. The patient has been admitted for IV antibiotic therapy and further investigation. FAMILY HISTORY: None. SOCIAL HISTORY: The patient is a group home resident. MEDICATIONS: His list of medications includes IV fluids, Tylenol, Mylanta, aspirin, Colace, DuoNebs, heparin drip, metoprolol, Zosyn, and vancomycin. ALLERGIES: None reported. CODE STATUS: DNR. REVIEW OF SYSTEMS: Unreliable. PHYSICAL EXAMINATION: GENERAL: Reveals a 73-year-old male. HEENT: Unremarkable. CHEST: Shows decreased breath sounds bilaterally with right basilar crackles. HEART: Normal heart sounds. ABDOMEN: Soft. EXTREMITIES: There is no appreciable edema. LABORATORY DATA: Lab testing shows white count 20,000 and now 14,000, hemoglobin is 15. Sodium 148, creatinine is 3.0. TSH 0.23. Troponin 0.39. Coags, INR is 1.3, PTT . ABG is pH 7.49, pCO2 of 12, and pO2 of 66; this is on non-rebreather mask. is negative for influenza A and B. X-ray of chest was obtained, which shows right lung pneumonia. IMPRESSION: 1. Sepsis. 2. Right lung pneumonia. 3. Acute renal failure. 4. Hypernatremia. 5. shelter resident. 6. Hypoxemia. DISCUSSION: Admit to the hospital. Agree with antibiotics. Rate control with Cardizem. IV fluids. Continue non-rebreather mask. May require intubation; however, I note the patient is DNR. We will follow carefully as and seo specialist. Dejan Lindsey M.D. DR: STARR JOB#: [id number] CC:
[2019-10-07 03:10] VITALS: BP 97/62
--- NOTE | 2019-10-07 03:13 | NUR ---
ED Nurse Note: Reassesed patient. Patient sleeping in bed, maintenance fluids running, 15L nonrebreather mask running. No acute distress noted.
--- NOTE | 2019-10-07 04:38 | NUR ---
ED Nurse Note: Morning labs collected and sent to lab.
--- NOTE | 2019-10-07 04:38 | NUR ---
ED Nurse Note: Right AC 20g IV discontinued d/t infiltrated.
[2019-10-07 05:02] VITALS: BP 105/60
[2019-10-07 05:24] LABS: HEMOGLOBIN 14.1 G/DL (14.2-18.0); MEAN CORPUSCULAR VOLUME 89 FL (80-99); PLATELET COUNT 106 K/UL (150-450); RED BLOOD COUNT 4.37 M/UL (4.70-6.10)
[2019-10-07 05:25] LABS: WHITE BLOOD COUNT 23.7 K/UL (4.8-10.8)
[2019-10-07 05:32] LABS: BLOOD UREA NITROGEN 75 mg/dL (7-18); CALCIUM 8.1 MG/DL (8.5-10.1); CHLORIDE 115 MMOL/L (98-107); CREATININE 2.3 MG/DL (0.55-1.30); POTASSIUM 3.5 MMOL/L (3.5-5.1); SODIUM 146 MMOL/L (136-145)
[2019-10-07 05:44] LABS: CARBON DIOXIDE 12 MMOL/L (21-32)
--- NOTE | 2019-10-07 07:17 | NUR ---
HAND-OFF: Report given to YUAN Emanuel.
[2019-10-07 07:30] VITALS: BP 97/53
--- NOTE | 2019-10-07 08:00 | NUR ---
Note maryone in EDM - 10/07/19 at 0904 by NIRU TRANSFER TO FLOOR: Pt transferred to ICU as ordered, per Dr. Kelly. Report given to Kesha BOLDEN. Belongings and medications given to receiving primary nurse. Family and or S/O informed of transfer. Pt was transferred on stable condition, satting at 96% on 15LPM via [facility].
--- NOTE | 2019-10-07 08:15 | NUR ---
TRANSFER TO FLOOR: Pt transferred to ICU as ordered, per Dr. Kelly. Report given to Kesha BOLDEN. Belongings and medications given to receiving primary nurse. Family and or S/O informed of transfer. Pt was transferred on stable condition, satting at 96% on 15LPM via NR[facility]
--- NOTE | 2019-10-07 08:30 | NUR ---
NURSE NOTES: Received new admission from ER, transferred to ICU via hospital bed. Pt is on COVID precautions, awake, disoriented, aphasic/incomprehensive. Pt is on nonrebreather 100%FIO2 at 100%O2Sat with bilateral diminished lung sounds with rhonchi. AFib on blood bank technologist, with heart rate fluctuating from 115-120. Temp 98.1F axillary. Right femoral disha double lumen cath, patent/intact, saline locked, and left upper am #20G peripheral IV access, patent/intact. Pt has GT patent/flushed, and currently clamped. Nugent catheter is present draining cloudy/light rian urine. Skin is intact, with the exception of PVD on left lower extremity/discoloration. HOB at high silva's, bed locked, three side rails up, and bed in lowest position. Will contact MD for new admission orders and follow plan of care.
[2019-10-07] MEDS: Docusate 100mg cap ORAL SCH ×2 (09:00→21:23)
--- NOTE | 2019-10-07 10:44 | Diagnostic Imaging Report ---
EXAM: XR Chest, 1 View CLINICAL HISTORY: INFECT TECHNIQUE: Frontal view of the chest. COMPARISON: 10/05/19. FINDINGS: Pronounced interval increase in basilar predominant right hemithoracic opacification. I suspect that this reflects a layering moderate pleural effusion with associated atelectasis. Underlying infectious infiltrate is not excluded. Calcified, tortuous aorta, accentuated by rotation. No pneumothorax. Degenerative changes. IMPRESSION: Increasing right hemithoracic opacification, likely combination of layering moderate pleural effusion with associated atelectasis. Cannot exclude infectious infiltrate.
--- NOTE | 2019-10-07 10:58 | General Progress Note ---
Assessment/Plan Assessment/Plan: 73 year old man with history of atrial fibrillation, not on anticoagulation, dysphagia, s/p G-tube, chonic diastolic CHF, HTN, DNR who presented from SNF with dyspnea and hypoxemia, rapid afib, RLL pneumonia and severe sepsis, likely IRENE, hyperkalemia, metabolic acidosis. #Severe sepsis #RLL gram negative pneumonia #Acute hypoxic respiratory failure #COVID Positive -cont. inpt medical care, transfer from ICU to tele -COVID19 POSITIVE, cont. Droplet precautions -Cont. broad spectrum antibiotics per ID -Supplemental oxygen, inhaled bronchodilators -CXR 10/05 w/right opacification, ?moderate effusion -d/w Pulm, pt is DNR/DNI, comfort measures -ID and Pulm consulted -d/w family, Jessica Jasmine and Deisi, , on prognosis, POC, stated pt with poor prognosis on comfort measures at this time #Suspected IRENE #Hyperkalemia #Metabolic acidosis -IV hydration -Avoid nephrotoxic meds -Monitor BMP -10/04: s/p HD cath placed right femoral by gen surgery -Nephrology consulted, HD per nephro #Rapid afib -cardiac monitoring -trop 0.393 -Cardiology following: metoprolol, may need to change to digoxin or amio if pressures are borderline low -Eliquis 2.5 BID #Thrombocytopenia - improved -Plt 151 >> 97 >>106 -likely 2/2 heparin ggt -no signs of bleeding at this time, monitor for signs of bleeding -off heparin ggt CODE Status: DNR/DNI, reviewed POLST in [facility] transfer papers VTE PPx: Eliquis I spent 35 minutes on this patient's case, >50% time was dedicated to counseling and/or care coordination with RN, Cardiology. Additional 25 mins spent on counseling family on POC. Subjective Allergies: Coded Allergies: No Known Allergies (Unverified , 10/05/19) Subjective F/u for sepsis, respiratory failure, COVID positive. Pt remains on non-rebreather. Objective Last 24 Hour Vital Signs Date Time Temp Pulse Resp B/P (MAP) Pulse Ox O2 Delivery O2 Flow Rate FiO2 10/07/19 08:15 98.0 93 24 97/53 95 Non-Rebreather 15.0 10/07/19 07:30 98.0 93 24 97/53 95 Non-Rebreather 15.0 10/07/19 05:02 80 22 105/60 95 Non-Rebreather 15.0 10/07/19 03:10 92 26 97/62 97 Non-Rebreather 15.0 10/07/19 00:41 102 21 112/75 98 Non-Rebreather 15.0 10/06/19 22:31 85 25 110/72 96 Non-Rebreather 15.0 10/06/19 21:08 100 105/68 10/06/19 19:25 100 26 105/66 96 Non-Rebreather 15.0 10/06/19 18:00 101 21 105/74 100 Non-Rebreather 15.0 10/06/19 17:00 73 25 109/64 98 Non-Rebreather 15.0 10/06/19 16:00 92 21 102/64 96 Non-Rebreather 15.0 10/06/19 15:00 98.0 96 18 97/65 97 Non-Rebreather 15.0 10/06/19 14:00 98.1 93 21 99/68 99 Non-Rebreather 15.0 10/06/19 13:00 87 21 108/72 100 Non-Rebreather 15.0 10/06/19 12:00 98.5 83 23 106/67 100 Non-Rebreather 15.0 10/06/19 11:00 100 22 117/68 97 Non-Rebreather 15.0 Intake and Output 10/06/19 10/07/19 19:00 07:00 Intake Total 660 ml 310 ml Output Total 3000 ml Balance -2340 ml 310 ml Intake IV Total 660 ml 310 ml Output Urine Total 3000 ml Laboratory Tests 10/06/19 12:30: Sodium Level 147H, Potassium Level 3.9, Chloride Level 115H, Carbon Dioxide Level 17L, Anion Gap 15, Blood Urea Nitrogen 86H, Creatinine 2.7H, Estimat Glomerular Filtration Rate 23.2, Glucose Level 134H, Calcium Level 8.1L, Phosphorus Level 4.2, Magnesium Level 1.8 10/06/19 14:30: Activated Partial Thromboplast Time 82H, Troponin I 0.281H 10/06/19 16:20: Lactic Acid Level 2.10H 10/06/19 18:00: Lactic Acid Level 2.00 10/07/19 04:38: White Blood Count 23.7#*H, Red Blood Count 4.37L, Hemoglobin 14.1L, Hematocrit 39.0L, Mean Corpuscular Volume 89, Mean Corpuscular Hemoglobin 32.2H, Mean Corpuscular Hemoglobin Concent 36.1H, Red Cell Distribution Width 12.0, Platelet Count 106L, Mean Platelet Volume 10.8H, Neutrophils (%) (Auto) , Lymphocytes (%) (Auto) , Monocytes (%) (Auto) , Eosinophils (%) (Auto) , Basophils (%) (Auto) , Differential Total Cells Counted 100, Neutrophils % ( Manual) 81H, Lymphocytes % (Manual) 3L, Monocytes % (Manual) 4, Eosinophils % ( Manual) 0, Basophils % (Manual) 0, Band Neutrophils 12H, Platelet Estimate DecreasedL, Platelet Morphology Normal, Red Blood Cell Morphology Normal, Activated Partial Thromboplast Time 35H, Sodium Level 146H, Potassium Level 3.5 , Chloride Level 115H, Carbon Dioxide Level 12L, Blood Urea Nitrogen 75H, Creatinine 2.3H, Estimat Glomerular Filtration Rate 27.9, Glucose Level 72L, Calcium Level 8.1L Height (Feet): 6 Height (Inches): 1.00 Weight (Pounds): 180 Objective General Appearance: alert, confused HEENT: atraumatic, anicteric Neck: supple, normal inspection Respiratory/Chest: on non-rebreather Cardiovascular/Chest: RR Ext: Rt femoral cath c/d/i Valarie Whitehead M.D. Oct 07, 2019 10:58
[2019-10-07] MEDS ORDERED: Midodrine 10mg tab ORAL SCH (11:00)
--- NOTE | 2019-10-07 11:00 | NUR ---
NURSE NOTES: AM meds were administered, with the exception of Metoprolol, due to low BP. Pt was seen by Dr Charley Kelly. Orders were received for 0.45%NS to infuse at 125ml/hour, Midodrine 10mg x1 GT, and 2D Echo. Pt was cleaned, gown/bed linens were changed. Pt was repositioned, HOB maintained at 30degrees.
--- NOTE | 2019-10-07 11:44 | Pulmonology Progress Note ---
Assessment/Plan Assessment/Plan 73 year old man with history of atrial fibrillation, not on anticoagulation, dysphagia, s/p G-tube, chonic diastolic CHF, HTN, DNR who presented from SNF with dyspnea and hypoxemia, rapid afib, RLL pneumonia and severe sepsis, likely IRENE, hyperkalemia, metabolic acidosis. #Severe sepsis #RLL gram negative pneumonia #Acute hypoxic respiratory failure #COVID Positive -COVID19 POSITIVE, cont. Droplet precautions -Cont. broad spectrum antibiotics, vancomycin and Zosyn -Supplemental oxygen, inhaled bronchodilators #Hyperkalemia #Metabolic acidosis #Rapid afib #Thrombocytopenia - improved CODE Status: DNR/DNI, Subjective Interval Events: Hypoxic, on NRBM; doing poorrly Constitutional: Reports: no symptoms HEENT: Repors: no symptoms Respiratory: Reports: shortness of breath Cardiovascular: Reports: no symptoms Gastrointestinal/Abdominal: Reports: no symptoms Allergies: Coded Allergies: No Known Allergies (Unverified , 10/05/19) Objective Last 24 Hour Vital Signs Date Time Temp Pulse Resp B/P (MAP) Pulse Ox O2 Delivery O2 Flow Rate FiO2 10/07/19 08:15 98.0 93 24 97/53 95 Non-Rebreather 15.0 10/07/19 07:30 98.0 93 24 97/53 95 Non-Rebreather 15.0 10/07/19 05:02 80 22 105/60 95 Non-Rebreather 15.0 10/07/19 03:10 92 26 97/62 97 Non-Rebreather 15.0 10/07/19 00:41 102 21 112/75 98 Non-Rebreather 15.0 10/06/19 22:31 85 25 110/72 96 Non-Rebreather 15.0 10/06/19 21:08 100 105/68 10/06/19 19:25 100 26 105/66 96 Non-Rebreather 15.0 10/06/19 18:00 101 21 105/74 100 Non-Rebreather 15.0 10/06/19 17:00 73 25 109/64 98 Non-Rebreather 15.0 10/06/19 16:00 92 21 102/64 96 Non-Rebreather 15.0 10/06/19 15:00 98.0 96 18 97/65 97 Non-Rebreather 15.0 10/06/19 14:00 98.1 93 21 99/68 99 Non-Rebreather 15.0 10/06/19 13:00 87 21 108/72 100 Non-Rebreather 15.0 10/06/19 12:00 98.5 83 23 106/67 100 Non-Rebreather 15.0 Intake and Output 10/06/19 10/07/19 19:00 07:00 Intake Total 660 ml 310 ml Output Total 3000 ml Balance -2340 ml 310 ml Intake IV Total 660 ml 310 ml Output Urine Total 3000 ml General Appearance: no acute distress HEENT: normocephalic Respiratory/Chest: respiratory distress, decreased breath sounds Cardiovascular: normal peripheral pulses Abdomen: normal bowel sounds Microbiology Date/Time Source Procedure Growth Status 10/05/19 10:15 Blood Blood Culture - Preliminary NO GROWTH AFTER 24 HOURS Resulted 10/05/19 10:15 Blood Blood Culture - Preliminary NO GROWTH AFTER 24 HOURS Resulted 10/05/19 13:00 Nasal Nares MRSA Culture - Final NO METHICILLIN RESISTANT STAPH AUREUS... Complete 10/05/19 10:20 Nasopharynx Coronavirus COVID-19 PCR (SAM) - Final Complete 10/05/19 10:15 Nasal Nares - Final Complete 10/05/19 10:15 Nasal Nares - Final Complete 10/05/19 13:00 Rectum VRE Culture - Final NO VANCOMYCIN RESISTANT ENTEROCOCCUS ... Complete Laboratory Tests 10/06/19 12:30: Sodium Level 147H, Potassium Level 3.9, Chloride Level 115H, Carbon Dioxide Level 17L, Anion Gap 15, Blood Urea Nitrogen 86H, Creatinine 2.7H, Estimat Glomerular Filtration Rate 23.2, Glucose Level 134H, Calcium Level 8.1L, Phosphorus Level 4.2, Magnesium Level 1.8 10/06/19 14:30: Activated Partial Thromboplast Time 82H, Troponin I 0.281H 10/06/19 16:20: Lactic Acid Level 2.10H 10/06/19 18:00: Lactic Acid Level 2.00 10/07/19 04:38: White Blood Count 23.7#*H, Red Blood Count 4.37L, Hemoglobin 14.1L, Hematocrit 39.0L, Mean Corpuscular Volume 89, Mean Corpuscular Hemoglobin 32.2H, Mean Corpuscular Hemoglobin Concent 36.1H, Red Cell Distribution Width 12.0, Platelet Count 106L, Mean Platelet Volume 10.8H, Neutrophils (%) (Auto) , Lymphocytes (%) (Auto) , Monocytes (%) (Auto) , Eosinophils (%) (Auto) , Basophils (%) (Auto) , Differential Total Cells Counted 100, Neutrophils % ( Manual) 81H, Lymphocytes % (Manual) 3L, Monocytes % (Manual) 4, Eosinophils % ( Manual) 0, Basophils % (Manual) 0, Band Neutrophils 12H, Platelet Estimate DecreasedL, Platelet Morphology Normal, Red Blood Cell Morphology Normal, Activated Partial Thromboplast Time 35H, Sodium Level 146H, Potassium Level 3.5 , Chloride Level 115H, Carbon Dioxide Level 12L, Blood Urea Nitrogen 75H, Creatinine 2.3H, Estimat Glomerular Filtration Rate 27.9, Glucose Level 72L, Calcium Level 8.1L Current Medications Medications (Trade) Dose Ordered Sig/Kristopher Route PRN Reason Start Time Stop Time Status Last Admin Dose Admin Acetaminophen (Tylenol) 650 mg Q4H PRN ORAL Mild Pain (Pain Scale 1-3) 10/05/19 15:15 11/04/19 15:14 Al Hydroxide/Mg Hydroxide (Mylanta II) 30 ml Q6H PRN ORAL dyspepsia 10/05/19 15:15 11/04/19 15:14 Albuterol/ Ipratropium (Albuterol/ Ipratropium) 3 ml Q4H PRN HHN Shortness of Breath 10/05/19 15:15 10/10/19 15:14 Apixaban (Eliquis) 2.5 mg BID GT 10/06/19 18:45 01/04/20 17:59 10/06/19 19:30 Aspirin (ASA) 81 mg DAILY ORAL 10/06/19 09:00 11/20/19 08:59 10/06/19 11:13 Dextrose (Dextrose 50%) 25 ml Q30M PRN IV Hypoglycemia 10/05/19 15:15 01/03/20 15:14 Dextrose (Dextrose 50%) 50 ml Q30M PRN IV Hypoglycemia 10/05/19 15:15 01/03/20 15:14 Diphenhydramine HCl (Benadryl) 25 mg Q6H PRN ORAL Itching/Pruritis 10/05/19 15:15 11/04/19 15:14 Docusate Sodium (Colace) 100 mg EVERY 12 HOURS ORAL 10/05/19 21:00 11/04/19 20:59 10/06/19 21:09 Metoprolol Tartrate (Lopressor) 25 mg EVERY 12 HOURS ORAL 10/05/19 21:00 01/03/20 20:59 10/06/19 21:08 Midodrine (Pro-Amatine) 10 mg ONCE ORAL 10/07/19 11:00 10/07/19 13:00 Ondansetron HCl (Zofran) 4 mg Q6H PRN IVP Nausea & Vomiting 10/05/19 15:15 11/04/19 15:14 Piperacillin Sod/ Tazobactam Sod 3.375 gm/Sodium Chloride 110 ml @ 27.5 mls/hr Q12H IVPB 10/05/19 23:00 10/12/19 22:59 10/06/19 22:55 Sodium Chloride 1,000 ml @ 70 mls/hr [id number] IV 10/07/19 19:00 11/04/19 22:14 Sodium Chloride 1,000 ml @ 125 mls/hr Q8H ONCE IV 10/07/19 11:00 10/07/19 18:59 Vancomycin HCl (Vanco rx to dose) 1 ea DAILY PRN MISC Per rx protocol 10/05/19 15:15 11/04/19 15:14 Dejan Lindsey MD Oct 07, 2019 11:44
[2019-10-07] MEDS: Piperacillin/Tazobactam 3.375 GM in NS 110 ML IVPB SCH ×2 (11:47→23:27)
[2019-10-07] MEDS: Eliquis 2.5mg tablet GT SCH ×2 (11:47→18:31)
[2019-10-07] MEDS: Aspirin Baby 81mg ORAL SCH (11:47)
--- NOTE | 2019-10-07 13:33 | Nephrology Progress Note ---
Assessment/Plan Plan #Acute renal failure - concerns for ATN in the setting of sepsis #Hyperkalemia due to renal failure #lactic acidosis #Sepsis likely due to pneumonia 2/2 COVID #Hypoxemic respiratory failure 2/2 COVID #Postive COVID #NSTEMI- likely demand ischemia - continue 1/2 NS for hydration - monitor sodium and cr - trend lactic acid - antibiotic per ID - avoid supratherapeutic vanco level - 2d echo - cardiology eval - on apixaban - monitor platelete Subjective ROS Limited/Unobtainable: Yes Subjective remains on non-rebreather mask Cr down to 2.3 WBC 23 Objective Objective Last 24 Hour Vital Signs Date Time Temp Pulse Resp B/P (MAP) Pulse Ox O2 Delivery O2 Flow Rate FiO2 10/07/19 08:15 98.0 93 24 97/53 95 Non-Rebreather 15.0 10/07/19 07:30 98.0 93 24 97/53 95 Non-Rebreather 15.0 10/07/19 05:02 80 22 105/60 95 Non-Rebreather 15.0 10/07/19 03:10 92 26 97/62 97 Non-Rebreather 15.0 10/07/19 00:41 102 21 112/75 98 Non-Rebreather 15.0 10/06/19 22:31 85 25 110/72 96 Non-Rebreather 15.0 10/06/19 21:08 100 105/68 10/06/19 19:25 100 26 105/66 96 Non-Rebreather 15.0 10/06/19 18:00 101 21 105/74 100 Non-Rebreather 15.0 10/06/19 17:00 73 25 109/64 98 Non-Rebreather 15.0 10/06/19 16:00 92 21 102/64 96 Non-Rebreather 15.0 10/06/19 15:00 98.0 96 18 97/65 97 Non-Rebreather 15.0 10/06/19 14:00 98.1 93 21 99/68 99 Non-Rebreather 15.0 Intake and Output 10/06/19 10/07/19 19:00 07:00 Intake Total 660 ml 310 ml Output Total 3000 ml Balance -2340 ml 310 ml Intake IV Total 660 ml 310 ml Output Urine Total 3000 ml Laboratory Tests 10/06/19 14:30: Activated Partial Thromboplast Time 82H, Troponin I 0.281H 10/06/19 16:20: Lactic Acid Level 2.10H 10/06/19 18:00: Lactic Acid Level 2.00 10/07/19 04:38: Activated Partial Thromboplast Time 35H, White Blood Count 23.7#*H, Red Blood Count 4.37L, Hemoglobin 14.1L, Hematocrit 39.0L, Mean Corpuscular Volume 89, Mean Corpuscular Hemoglobin 32.2H, Mean Corpuscular Hemoglobin Concent 36.1H, Red Cell Distribution Width 12.0, Platelet Count 106L, Mean Platelet Volume 10.8H, Neutrophils (%) (Auto) , Lymphocytes (%) (Auto) , Monocytes (%) (Auto) , Eosinophils (%) (Auto) , Basophils (%) (Auto) , Differential Total Cells Counted 100, Neutrophils % (Manual) 81H, Lymphocytes % (Manual) 3L, Monocytes % (Manual) 4, Eosinophils % (Manual) 0, Basophils % (Manual) 0, Band Neutrophils 12H, Platelet Estimate DecreasedL, Platelet Morphology Normal, Red Blood Cell Morphology Normal, Sodium Level 146H, Potassium Level 3.5, Chloride Level 115H, Carbon Dioxide Level 12L, Blood Urea Nitrogen 75H, Creatinine 2.3H, Estimat Glomerular Filtration Rate 27.9, Glucose Level 72L, Calcium Level 8.1L Height (Feet): 6 Height (Inches): 1.00 Weight (Pounds): 180 Charlee Tipton M.D. Oct 07, 2019 13:33
--- NOTE | 2019-10-07 14:00 | NUR ---
NURSE NOTES: Spoke with survey technologist Paul regarding STAT order for 2DEcho. Per Dwight, will wait to confirm with Dr Adams if it is still needed or urgent to avoid exposure to pt since COVID positive case. Otherwise, test can be done Tuesday morning per Dwight.
--- NOTE | 2019-10-07 15:17 | Surgery Progress Note ---
Surgery Progress Note Subjective Procedure Performed Right femoral temporary hemodialysis catheter insertion Additional Comments leukocytosis imaging reviewed worsening ill appearing respiratory declining Objective Last 24 Hour Vital Signs Date Time Temp Pulse Resp B/P (MAP) Pulse Ox O2 Delivery O2 Flow Rate FiO2 10/07/19 13:15 Non-Rebreather 15.0 10/07/19 12:00 Non-Rebreather 10/07/19 08:15 98.0 93 24 97/53 95 Non-Rebreather 15.0 10/07/19 07:30 98.0 93 24 97/53 95 Non-Rebreather 15.0 10/07/19 05:02 80 22 105/60 95 Non-Rebreather 15.0 10/07/19 03:10 92 26 97/62 97 Non-Rebreather 15.0 10/07/19 00:41 102 21 112/75 98 Non-Rebreather 15.0 10/06/19 22:31 85 25 110/72 96 Non-Rebreather 15.0 10/06/19 21:08 100 105/68 10/06/19 19:25 100 26 105/66 96 Non-Rebreather 15.0 10/06/19 18:00 101 21 105/74 100 Non-Rebreather 15.0 10/06/19 17:00 73 25 109/64 98 Non-Rebreather 15.0 10/06/19 16:00 92 21 102/64 96 Non-Rebreather 15.0 I&O Intake and Output 10/06/19 10/07/19 19:00 07:00 Intake Total 660 ml 310 ml Output Total 3000 ml Balance -2340 ml 310 ml Intake IV Total 660 ml 310 ml Output Urine Total 3000 ml Dressing: other Wound: other Drains: other Cardiovascular: RSR Respiratory: decreased breath sounds Abdomen: soft, non-tender, present bowel sounds Extremities: no tenderness, no cyanosis Laboratory Tests Test 10/06/19 16:20 10/06/19 18:00 10/07/19 04:38 Lactic Acid Level 2.10 mmol/L (0.4-2.0) H 2.00 mmol/L (0.66-2.22) White Blood Count 23.7 K/UL (4.8-10.8) #*H Red Blood Count 4.37 M/UL (4.70-6.10) L Hemoglobin 14.1 G/DL (14.2-18.0) L Hematocrit 39.0 % (42.0-52.0) L Mean Corpuscular Volume 89 FL (80-99) Mean Corpuscular Hemoglobin 32.2 PG (27.0-31.0) H Mean Corpuscular Hemoglobin Concent 36.1 G/DL (32.0-36.0) H Red Cell Distribution Width 12.0 % (11.6-14.8) Platelet Count 106 K/UL (150-450) L Mean Platelet Volume 10.8 FL (6.5-10.1) H Neutrophils (%) (Auto) % (45.0-75.0) Lymphocytes (%) (Auto) % (20.0-45.0) Monocytes (%) (Auto) % (1.0-10.0) Eosinophils (%) (Auto) % (0.0-3.0) Basophils (%) (Auto) % (0.0-2.0) Differential Total Cells Counted 100 Neutrophils % (Manual) 81 % (45-75) H Lymphocytes % (Manual) 3 % (20-45) L Monocytes % (Manual) 4 % (1-10) Eosinophils % (Manual) 0 % (0-3) Basophils % (Manual) 0 % (0-2) Band Neutrophils 12 % (0-8) H Platelet Estimate Decreased L Platelet Morphology Normal Red Blood Cell Morphology Normal Activated Partial Thromboplast Time 35 SEC (23-33) H Sodium Level 146 MMOL/L (136-145) H Potassium Level 3.5 MMOL/L (3.5-5.1) Chloride Level 115 MMOL/L (98-107) H Carbon Dioxide Level 12 MMOL/L (21-32) L Blood Urea Nitrogen 75 mg/dL (7-18) H Creatinine 2.3 MG/DL (0.55-1.30) H Estimat Glomerular Filtration Rate 27.9 mL/min (>60) Glucose Level 72 MG/DL (74-106) L Calcium Level 8.1 MG/DL (8.5-10.1) L Plan Problems: (1) Severe sepsis Assessment & Plan: 73-year-old male with multiple comorbidities presents from longterm with shortness of breath. Leukocytosis, lactic acidosis, abnormal electrolytes, renal insufficiency, sepsis. Discussed with PCP and chromosomal disorders counselor and plan for urgent dialysis given patient's condition. He is fairly ill and will likely deteriorate requiring full care measures. Shortness of breath and respiratory status likely related potentially to CO VID and until diagnosed evaluated all cautions need to be taken. Urgent hemodialysis catheter placed in the emergency department by myself. Full precautions taken. See note. Will monitor and follow with recommendations. Thank you for let me precipitate patient's care trend labs iv fluids cardio eval - anticoag abx as per id discussed with nephro Pronounced interval increase in basilar predominant right hemithoracic opacification. I suspect that this reflects a layering moderate pleural effusion with associated atelectasis. Underlying infectious infiltrate is not excluded. Calcified, tortuous aorta, accentuated by rotation. No pneumothorax. Degenerative changes. IMPRESSION: Increasing right hemithoracic opacification, likely combination of layering moderate pleural effusion with associated atelectasis. Cannot exclude infectious infiltrate. dnr/dni - family aware prognosis guarded no intubation Orville Guzman Oct 07, 2019 15:17
--- NOTE | 2019-10-07 16:30 | NUR ---
NURSE NOTES: Pt was seen by Dr Sanford. No new orders received at this time. VS remain stable.
--- NOTE | 2019-10-07 18:00 | NUR ---
NURSE NOTES: Pt had BM x1, liquid dark brown stool. Pt was cleaned, gown/bed linens were changed. Pt was repositioned with bilateral extremities elevated on pillows.
--- NOTE | 2019-10-07 18:10 | Infectious Diseases Prog Note ---
Assessment/Plan Assessment/Plan ASSESSMENT AND PLAN: 1. covid-19 virus infection, likely bacterial pna, sepsis, leukocytosis, fevers , DNR/DNI, ARF, respiratory failure - vancomycin, zosyn - pneumonia c/w bacterial pneumonia - f/u labs and chest x-ray - poor prognosis - communicated with Dr. Lindsey 2. Renal failure. 3. Hemodialysis. 4. Dysphagia. G-tube. 5. Aspiration risk. 6. Atrial fibrillation. 7. Anticoagulation. 8. Dysphagia. 9. CHF. 10. Hypertension. 11. No known drug allergies. 12. Social history negative. 13. Family history noncontributory. 14. MAR was noted. 15. Case discussed with RN. 16. Patient was seen in the emergency room. 17. Patient is a DNR at this time. Subjective Constitutional: Reports: fatigue; Denies: fever HEENT: Reports: congestion Respiratory: Reports: shortness of breath Cardiovascular: Reports: other - no pressors Gastrointestinal/Abdominal: Denies: nausea, vomiting, diarrhea Genitourinary: Reports: other - + alston ; Denies: dysuria Neurologic: Reports: headache, weakness, other - lethargic Psychiatric: Reports: other - NA Skin: Denies: rash Hematologic: Denies: bleeding Musculoskeletal: Reports: other - NA Allergies: Coded Allergies: No Known Allergies (Unverified , 10/05/19) Objective Vital Signs Last 24 Hour Vital Signs Date Time Temp Pulse Resp B/P (MAP) Pulse Ox O2 Delivery O2 Flow Rate FiO2 10/07/19 13:15 Non-Rebreather 15.0 10/07/19 12:00 Non-Rebreather 10/07/19 08:15 98.0 93 24 97/53 95 Non-Rebreather 15.0 10/07/19 07:30 98.0 93 24 97/53 95 Non-Rebreather 15.0 10/07/19 05:02 80 22 105/60 95 Non-Rebreather 15.0 10/07/19 03:10 92 26 97/62 97 Non-Rebreather 15.0 10/07/19 00:41 102 21 112/75 98 Non-Rebreather 15.0 10/06/19 22:31 85 25 110/72 96 Non-Rebreather 15.0 10/06/19 21:08 100 105/68 10/06/19 19:25 100 26 105/66 96 Non-Rebreather 15.0 10/06/19 18:00 101 21 105/74 100 Non-Rebreather 15.0 Height (Feet): 6 Height (Inches): 1.00 Weight (Pounds): 180 General Appearance: other - sob, NR, no pressors HEENT: normocephalic, atraumatic, anicteric, no JVD Respiratory/Chest: crackles/rales, rhonchi - bilaterally Cardiovascular: normal rate, regular rhythm, no gallop/murmur, no JVD Abdomen: normal bowel sounds, soft, non tender, no organomegaly, non distended Genitourinary: other - + alston - urine slt cloudy Extremities: no cyanosis Skin: no rash Neurologic/Psychiatric: motor weakness, other - lethargic, weak Lymphatic: no neck adenopathy Musculoskeletal: no effusion Objective 10/07/19 - EXAM: XR Chest, 1 View CLINICAL HISTORY: INFECT TECHNIQUE: Frontal view of the chest. COMPARISON: 10/05/19. FINDINGS: Pronounced interval increase in basilar predominant right hemithoracic opacification. I suspect that this reflects a layering moderate pleural effusion with associated atelectasis. Underlying infectious infiltrate is not excluded. Calcified, tortuous aorta, accentuated by rotation. No pneumothorax. Degenerative changes. IMPRESSION: Increasing right hemithoracic opacification, likely combination of layering moderate pleural effusion with associated atelectasis. Cannot exclude infectious infiltrate. Microbiology Date/Time Source Procedure Growth Status 10/05/19 10:15 Blood Blood Culture - Preliminary NO GROWTH AFTER 24 HOURS Resulted 10/05/19 10:15 Blood Blood Culture - Preliminary NO GROWTH AFTER 24 HOURS Resulted 10/05/19 13:00 Nasal Nares MRSA Culture - Final NO METHICILLIN RESISTANT STAPH AUREUS... Complete 10/05/19 10:20 Nasopharynx Coronavirus COVID-19 PCR (SAM) - Final Complete 10/05/19 10:15 Nasal Nares - Final Complete 10/05/19 10:15 Nasal Nares - Final Complete 10/05/19 13:00 Rectum VRE Culture - Final NO VANCOMYCIN RESISTANT ENTEROCOCCUS ... Complete Laboratory Tests Test 10/06/19 18:00 10/07/19 04:38 Lactic Acid Level 2.00 mmol/L (0.66-2.22) White Blood Count 23.7 K/UL (4.8-10.8) #*H Red Blood Count 4.37 M/UL (4.70-6.10) L Hemoglobin 14.1 G/DL (14.2-18.0) L Hematocrit 39.0 % (42.0-52.0) L Mean Corpuscular Volume 89 FL (80-99) Mean Corpuscular Hemoglobin 32.2 PG (27.0-31.0) H Mean Corpuscular Hemoglobin Concent 36.1 G/DL (32.0-36.0) H Red Cell Distribution Width 12.0 % (11.6-14.8) Platelet Count 106 K/UL (150-450) L Mean Platelet Volume 10.8 FL (6.5-10.1) H Neutrophils (%) (Auto) % (45.0-75.0) Lymphocytes (%) (Auto) % (20.0-45.0) Monocytes (%) (Auto) % (1.0-10.0) Eosinophils (%) (Auto) % (0.0-3.0) Basophils (%) (Auto) % (0.0-2.0) Differential Total Cells Counted 100 Neutrophils % (Manual) 81 % (45-75) H Lymphocytes % (Manual) 3 % (20-45) L Monocytes % (Manual) 4 % (1-10) Eosinophils % (Manual) 0 % (0-3) Basophils % (Manual) 0 % (0-2) Band Neutrophils 12 % (0-8) H Platelet Estimate Decreased L Platelet Morphology Normal Red Blood Cell Morphology Normal Activated Partial Thromboplast Time 35 SEC (23-33) H Sodium Level 146 MMOL/L (136-145) H Potassium Level 3.5 MMOL/L (3.5-5.1) Chloride Level 115 MMOL/L (98-107) H Carbon Dioxide Level 12 MMOL/L (21-32) L Blood Urea Nitrogen 75 mg/dL (7-18) H Creatinine 2.3 MG/DL (0.55-1.30) H Estimat Glomerular Filtration Rate 27.9 mL/min (>60) Glucose Level 72 MG/DL (74-106) L Calcium Level 8.1 MG/DL (8.5-10.1) L Current Medications Medications (Trade) Dose Ordered Sig/Kristopher Route PRN Reason Start Time Stop Time Status Last Admin Dose Admin Acetaminophen (Tylenol) 650 mg Q4H PRN ORAL Mild Pain (Pain Scale 1-3) 10/05/19 15:15 11/04/19 15:14 Al Hydroxide/Mg Hydroxide (Mylanta II) 30 ml Q6H PRN ORAL dyspepsia 10/05/19 15:15 11/04/19 15:14 Albuterol/ Ipratropium (Albuterol/ Ipratropium) 3 ml Q4H PRN HHN Shortness of Breath 10/05/19 15:15 10/10/19 15:14 Apixaban (Eliquis) 2.5 mg BID GT 10/06/19 18:45 01/04/20 17:59 10/07/19 11:47 Aspirin (ASA) 81 mg DAILY ORAL 10/06/19 09:00 11/20/19 08:59 10/07/19 11:47 Dextrose (Dextrose 50%) 25 ml Q30M PRN IV Hypoglycemia 10/05/19 15:15 01/03/20 15:14 Dextrose (Dextrose 50%) 50 ml Q30M PRN IV Hypoglycemia 10/05/19 15:15 01/03/20 15:14 Diphenhydramine HCl (Benadryl) 25 mg Q6H PRN ORAL Itching/Pruritis 10/05/19 15:15 11/04/19 15:14 Docusate Sodium (Colace) 100 mg EVERY 12 HOURS ORAL 10/05/19 21:00 11/04/19 20:59 10/06/19 21:09 Metoprolol Tartrate (Lopressor) 25 mg EVERY 12 HOURS ORAL 10/05/19 21:00 01/03/20 20:59 10/06/19 21:08 Ondansetron HCl (Zofran) 4 mg Q6H PRN IVP Nausea & Vomiting 10/05/19 15:15 11/04/19 15:14 Piperacillin Sod/ Tazobactam Sod 3.375 gm/Sodium Chloride 110 ml @ 27.5 mls/hr Q12H IVPB 10/05/19 23:00 10/12/19 22:59 10/07/19 11:47 Sodium Chloride 1,000 ml @ 70 mls/hr [id number] IV 10/07/19 19:00 11/04/19 22:14 Sodium Chloride 1,000 ml @ 125 mls/hr Q8H ONCE IV 10/07/19 11:00 10/07/19 18:59 10/07/19 11:48 Vancomycin HCl (Vanco rx to dose) 1 ea DAILY PRN MISC Per rx protocol 10/05/19 15:15 11/04/19 15:14 Floyd Sanford MD Oct 07, 2019 18:10
--- NOTE | 2019-10-07 18:40 | NUR ---
TRANSFER TO FLOOR: Patient transferred to Tele from ICU via hospital bed while observing COVID precautions. Hand off report and endorsement of care was given to Gray RN/Charge nurse. Pt remains on non rebreather. Skin is intact, with the exception of left lower leg PVD/skin irritation. VS remain stable. Endorsed plan of care.
[2019-10-07] MEDS ORDERED: Albuterol/Ipratropium 3ml neb HHN PRN (19:15)
[2019-10-07] MEDS ORDERED: Mylanta II UD 30ml ORAL PRN (19:15)
[2019-10-07] MEDS ORDERED: DiphenhydrAMINE 25mg Tab ORAL PRN (19:15)
--- NOTE | 2019-10-07 19:30 | NUR ---
NURSE NOTES: Received pt and report from YUAN Castellano. Observed pt resting in bed with both eyes closed; arousable to voice and light touch. Pt is A/Ox1. model and dye person is in placed; pt is A. Fib. IV site intact, asymptomatic, and patent; running 1/2 NS @70cc/hr. Pt is on a non-rebreather mask @15L. Pt has a Nugent in placed for urinary retention; urine is yellow in color. Bed is in the lowest position and locked. Call light and bedside table is within reach. No signs/symptoms of acute distress noted at this time. Will continue plan of care.
[2019-10-07 20:00] VITALS: BP 100/47
--- NOTE | 2019-10-07 20:39 | Neurology Progress Note ---
Interim History Interim History ROS Limited/Unobtainable: Yes Interim History covid + on non rebreather Objective Physical Exam Last Vital Signs Date Time Temp Pulse Resp B/P (MAP) Pulse Ox O2 Delivery O2 Flow Rate FiO2 10/07/19 16:00 85 10/07/19 16:00 15.0 100 10/07/19 16:00 Non-Rebreather 10/07/19 08:15 98.0 24 97/53 95 Laboratory Tests Test 10/07/19 04:38 White Blood Count 23.7 K/UL (4.8-10.8) #*H Red Blood Count 4.37 M/UL (4.70-6.10) L Hemoglobin 14.1 G/DL (14.2-18.0) L Hematocrit 39.0 % (42.0-52.0) L Mean Corpuscular Volume 89 FL (80-99) Mean Corpuscular Hemoglobin 32.2 PG (27.0-31.0) H Mean Corpuscular Hemoglobin Concent 36.1 G/DL (32.0-36.0) H Red Cell Distribution Width 12.0 % (11.6-14.8) Platelet Count 106 K/UL (150-450) L Mean Platelet Volume 10.8 FL (6.5-10.1) H Neutrophils (%) (Auto) % (45.0-75.0) Lymphocytes (%) (Auto) % (20.0-45.0) Monocytes (%) (Auto) % (1.0-10.0) Eosinophils (%) (Auto) % (0.0-3.0) Basophils (%) (Auto) % (0.0-2.0) Differential Total Cells Counted 100 Neutrophils % (Manual) 81 % (45-75) H Lymphocytes % (Manual) 3 % (20-45) L Monocytes % (Manual) 4 % (1-10) Eosinophils % (Manual) 0 % (0-3) Basophils % (Manual) 0 % (0-2) Band Neutrophils 12 % (0-8) H Platelet Estimate Decreased L Platelet Morphology Normal Red Blood Cell Morphology Normal Activated Partial Thromboplast Time 35 SEC (23-33) H Sodium Level 146 MMOL/L (136-145) H Potassium Level 3.5 MMOL/L (3.5-5.1) Chloride Level 115 MMOL/L (98-107) H Carbon Dioxide Level 12 MMOL/L (21-32) L Blood Urea Nitrogen 75 mg/dL (7-18) H Creatinine 2.3 MG/DL (0.55-1.30) H Estimat Glomerular Filtration Rate 27.9 mL/min (>60) Glucose Level 72 MG/DL (74-106) L Calcium Level 8.1 MG/DL (8.5-10.1) L Impression/Recommendations Problems: (1) Severe sepsis Alo Gaxiola MD Oct 07, 2019 20:39
[2019-10-08] VITALS: BP 106/57
[2019-10-08 04:00] VITALS: BP 102/59
[2019-10-08 07:31] LABS: HEMATOCRIT 35.1 % (42.0-52.0); MEAN CORPUSCULAR VOLUME 88 FL (80-99); PLATELET COUNT 94 K/UL (150-450); RED BLOOD COUNT 3.98 M/UL (4.70-6.10); RED CELL DISTRIBUTION WIDTH 12.7 % (11.6-14.8); WHITE BLOOD COUNT 19.9 K/UL (4.8-10.8)
[2019-10-08 07:38] LABS: ALANINE AMINOTRANSFERASE 25 U/L (12-78); ALBUMIN 1.5 G/DL (3.4-5.0); ALBUMIN/GLOBULIN RATIO 0.4 (1.0-2.7); ALKALINE PHOSPHATASE 48 U/L (46-116); ANION GAP 18 mmol/L (5-15); ASPARTATE AMINO TRANSFERASE 94 U/L (15-37); BILIRUBIN,TOTAL 0.7 MG/DL (0.2-1.0); BLOOD UREA NITROGEN 70 mg/dL (7-18); CALCIUM 8.2 MG/DL (8.5-10.1); CARBON DIOXIDE 14 MMOL/L (21-32); CHLORIDE 115 MMOL/L (98-107); CREATININE 2.3 MG/DL (0.55-1.30); POTASSIUM 3.1 MMOL/L (3.5-5.1); SODIUM 147 MMOL/L (136-145)
[2019-10-08 08:00] VITALS: BP 102/52
--- NOTE | 2019-10-08 08:00 | NUR ---
NURSE NOTES: Patient is asleep, resting comfortably. Pt is on nonrebreather @15L with No signs of acute distress noted. IV site is c/d/i with IVF running. Pt is on cardiac cath lab technologist. Pt has alston cath draining to gravity. No erythema, bleeding or infiltration noted. Bed at lowest position, brakes on, siderails x3. Call light within reach. Will continue to monitor.
--- NOTE | 2019-10-08 08:20 | NUR ---
HAND-OFF: Report given to YUAN Bustos. Plan of care endorsed.
[2019-10-08] MEDS: Docusate 100mg cap ORAL SCH ×2 (09:00→21:00)
[2019-10-08] MEDS ORDERED: Eliquis 2.5mg tablet GT SCH (09:00)
--- NOTE | 2019-10-08 09:24 | General Progress Note ---
Assessment/Plan Assessment/Plan: 73 year old man with history of atrial fibrillation, not on anticoagulation, dysphagia, s/p G-tube, chonic diastolic CHF, HTN, DNR who presented from SNF with dyspnea and hypoxemia, rapid afib, RLL pneumonia and severe sepsis, likely IRENE, hyperkalemia, metabolic acidosis. #Severe sepsis #RLL gram negative pneumonia #Acute hypoxic respiratory failure #COVID Positive -cont. inpt medical care, tele -COVID19 POSITIVE, cont. Droplet precautions -Cont. broad spectrum antibiotics per ID -Supplemental oxygen, inhaled bronchodilators -CXR 10/05 w/right opacification, ?moderate effusion -pt is DNR/DNI, comfort measures -ID and Pulm consulted -d/w family on 10/06, Jessica Jasmine and Deisi, , on prognosis, POC , stated pt with poor prognosis on comfort measures at this time -leukocytosis downtrending, ctm -cont. ID/Pulm care #Suspected IRENE #Hyperkalemia - resolved #Metabolic acidosis -IV hydration -Avoid nephrotoxic meds -Monitor BMP -10/04: s/p HD cath placed right femoral by gen surgery -Nephrology consulted, HD per nephro #Rapid afib -cardiac monitoring -trop 0.393 -Cardiology following: metoprolol, may need to change to digoxin or amio if pressures are borderline low -Eliquis 2.5 BID #Thrombocytopenia - improved -Plt 151 >> 97 >>106 -likely 2/2 heparin ggt -no signs of bleeding at this time, monitor for signs of bleeding -off heparin ggt CODE Status: DNR/DNI, reviewed POLST in half-way transfer papers VTE PPx: Eliquis I spent 35 minutes on this patient's case, >50% time was dedicated to counseling and/or care coordination with RN, Cardiology. Subjective ROS Limited/Unobtainable: Yes - Noncommunicative Allergies: Coded Allergies: No Known Allergies (Unverified , 10/05/19) Subjective F/u for sepsis, respiratory failure, COVID positive. Pt remains on non-rebreather, looks comfortable today, non-communicative. Objective Last 24 Hour Vital Signs Date Time Temp Pulse Resp B/P (MAP) Pulse Ox O2 Delivery O2 Flow Rate FiO2 10/08/19 08:00 99.0 100 22 102/52 (69) 92 10/08/19 08:00 15.0 10/08/19 04:00 15.0 10/08/19 04:00 97.9 90 21 102/59 (73) 96 10/08/19 04:00 90 10/08/19 00:00 98 10/08/19 00:00 98.3 98 20 106/57 (73) 95 10/08/19 00:00 15.0 10/07/19 21:00 94 100/47 10/07/19 20:00 89 10/07/19 20:00 15.0 10/07/19 20:00 97.7 89 22 100/47 (64) 96 10/07/19 16:00 85 10/07/19 16:00 15.0 100 10/07/19 16:00 Non-Rebreather 10/07/19 13:15 Non-Rebreather 15.0 10/07/19 12:00 Non-Rebreather Intake and Output 10/07/19 10/08/19 19:00 07:00 Intake Total 855.0 ml Output Total 300 ml Balance 555.0 ml Intake IV Total 855.0 ml Output Urine Total 300 ml # Bowel Movements 1 Laboratory Tests 10/08/19 07:00: White Blood Count 19.9H, Red Blood Count 3.98L, Hemoglobin 13.0L, Hematocrit 35.1L, Mean Corpuscular Volume 88, Mean Corpuscular Hemoglobin 32.7H, Mean Corpuscular Hemoglobin Concent 37.2H, Red Cell Distribution Width 12.7, Platelet Count 94L, Mean Platelet Volume 10.7H, Neutrophils (%) (Auto) , Lymphocytes (%) (Auto) , Monocytes (%) (Auto) , Eosinophils (%) (Auto) , Basophils (%) (Auto) , Neutrophils % (Manual) [Pending], Lymphocytes % (Manual) [Pending], Platelet Estimate [Pending], Platelet Morphology [Pending], Sodium Level 147H, Potassium Level 3.1L, Chloride Level 115H, Carbon Dioxide Level 14L , Anion Gap 18H, Blood Urea Nitrogen 70H, Creatinine 2.3H, Estimat Glomerular Filtration Rate 27.9, Glucose Level 77, Calcium Level 8.2L, Total Bilirubin 0.7 , Aspartate Amino Transf (AST/SGOT) 94H, Alanine Aminotransferase (ALT/SGPT) 25 , Alkaline Phosphatase 48, Total Protein 5.1L, Albumin 1.5L, Globulin 3.6, Albumin/Globulin Ratio 0.4L, Random Vancomycin Level 12.8 Height (Feet): 6 Height (Inches): 1.00 Weight (Pounds): 180 Objective General Appearance: Awake, alert, confused HEENT: atraumatic, anicteric Neck: supple, normal inspection Respiratory/Chest: on non-rebreather, mild rhonchi E/L Cardiovascular/Chest: RR Abd: Soft, NT/ND, PEG in place, C/D/I Ext: Rt femoral cath c/d/i, no edema Valarie Whitehead M.D. Oct 08, 2019 09:24
--- NOTE | 2019-10-08 09:35 | Nephrology Progress Note ---
Assessment/Plan Plan #Acute renal failure - concerns for ATN in the setting of sepsis #Hyperkalemia due to renal failure- improved #lactic acidosis - improved #Sepsis likely due to pneumonia 2/2 COVID #Hypoxemic respiratory failure 2/2 COVID #Postive COVID #NSTEMI- likely demand ischemia - continue 1/2 NS for hydration- at 100cc/hr - monitor sodium and cr - antibiotic per ID - on vanco and zosyn - avoid supratherapeutic vanco level- consider switching vanco if Cr rises ?? - cardiology eval - on apixaban - monitor platelet - remains on nonrebreather mask Subjective ROS Limited/Unobtainable: Yes Subjective sodium 147 K low - repleted Cr 2.3 WBC 19.9 Objective Objective Last 24 Hour Vital Signs Date Time Temp Pulse Resp B/P (MAP) Pulse Ox O2 Delivery O2 Flow Rate FiO2 10/08/19 08:00 99.0 100 22 102/52 (69) 92 10/08/19 08:00 15.0 10/08/19 04:00 15.0 10/08/19 04:00 97.9 90 21 102/59 (73) 96 10/08/19 04:00 90 10/08/19 00:00 98 10/08/19 00:00 98.3 98 20 106/57 (73) 95 10/08/19 00:00 15.0 10/07/19 21:00 94 100/47 10/07/19 20:00 89 10/07/19 20:00 15.0 10/07/19 20:00 97.7 89 22 100/47 (64) 96 10/07/19 16:00 85 10/07/19 16:00 15.0 100 10/07/19 16:00 Non-Rebreather 10/07/19 13:15 Non-Rebreather 15.0 10/07/19 12:00 Non-Rebreather Intake and Output 10/07/19 10/08/19 19:00 07:00 Intake Total 855.0 ml Output Total 300 ml Balance 555.0 ml Intake IV Total 855.0 ml Output Urine Total 300 ml # Bowel Movements 1 Laboratory Tests 10/08/19 07:00: White Blood Count 19.9H, Red Blood Count 3.98L, Hemoglobin 13.0L, Hematocrit 35.1L, Mean Corpuscular Volume 88, Mean Corpuscular Hemoglobin 32.7H, Mean Corpuscular Hemoglobin Concent 37.2H, Red Cell Distribution Width 12.7, Platelet Count 94L, Mean Platelet Volume 10.7H, Neutrophils (%) (Auto) , Lymphocytes (%) (Auto) , Monocytes (%) (Auto) , Eosinophils (%) (Auto) , Basophils (%) (Auto) , Neutrophils % (Manual) [Pending], Lymphocytes % (Manual) [Pending], Platelet Estimate [Pending], Platelet Morphology [Pending], Sodium Level 147H, Potassium Level 3.1L, Chloride Level 115H, Carbon Dioxide Level 14L , Anion Gap 18H, Blood Urea Nitrogen 70H, Creatinine 2.3H, Estimat Glomerular Filtration Rate 27.9, Glucose Level 77, Calcium Level 8.2L, Magnesium Level [ Pending], Total Bilirubin 0.7, Aspartate Amino Transf (AST/SGOT) 94H, Alanine Aminotransferase (ALT/SGPT) 25, Alkaline Phosphatase 48, Total Protein 5.1L, Albumin 1.5L, Globulin 3.6, Albumin/Globulin Ratio 0.4L, Random Vancomycin Level 12.8 Height (Feet): 6 Height (Inches): 1.00 Weight (Pounds): 180 Charlee Tipton M.D. Oct 08, 2019 09:35
[2019-10-08] MEDS: Aspirin Baby 81mg ORAL SCH (09:50)
[2019-10-08] MEDS: Vancomycin 1.25gm/NS Premix q24h IVPB ONE ×2 (09:50→10:08)
--- NOTE | 2019-10-08 10:27 | Pulmonology Progress Note ---
Assessment/Plan Assessment/Plan 73 year old man with history of atrial fibrillation, not on anticoagulation, dysphagia, s/p G-tube, chonic diastolic CHF, HTN, DNR who presented from SNF with dyspnea and hypoxemia, rapid afib, RLL pneumonia and severe sepsis, likely IRENE, hyperkalemia, metabolic acidosis. #Severe sepsis #RLL gram negative pneumonia #Acute hypoxic respiratory failure #COVID Positive -COVID19 POSITIVE, cont. Droplet precautions -Cont. broad spectrum antibiotics, vancomycin and Zosyn -Supplemental oxygen, inhaled bronchodilators #Hyperkalemia #Metabolic acidosis #Rapid afib #Thrombocytopenia - improved CODE Status: DNR/DNI, Subjective Interval Events: Now on tele; none new Constitutional: Reports: no symptoms HEENT: Repors: no symptoms Respiratory: Reports: no symptoms Cardiovascular: Reports: no symptoms Allergies: Coded Allergies: No Known Allergies (Unverified , 10/05/19) Objective Last 24 Hour Vital Signs Date Time Temp Pulse Resp B/P (MAP) Pulse Ox O2 Delivery O2 Flow Rate FiO2 10/08/19 09:00 100 102/52 10/08/19 08:00 99.0 100 22 102/52 (69) 92 10/08/19 08:00 15.0 10/08/19 04:00 15.0 10/08/19 04:00 97.9 90 21 102/59 (73) 96 10/08/19 04:00 90 10/08/19 00:00 98 10/08/19 00:00 98.3 98 20 106/57 (73) 95 10/08/19 00:00 15.0 10/07/19 21:00 94 100/47 10/07/19 20:00 89 10/07/19 20:00 15.0 10/07/19 20:00 97.7 89 22 100/47 (64) 96 10/07/19 16:00 85 10/07/19 16:00 15.0 100 10/07/19 16:00 Non-Rebreather 10/07/19 13:15 Non-Rebreather 15.0 10/07/19 12:00 Non-Rebreather Intake and Output 10/07/19 10/08/19 19:00 07:00 Intake Total 855.0 ml Output Total 300 ml Balance 555.0 ml Intake IV Total 855.0 ml Output Urine Total 300 ml # Bowel Movements 1 General Appearance: no acute distress HEENT: normocephalic Respiratory/Chest: chest wall non-tender Cardiovascular: normal peripheral pulses Abdomen: normal bowel sounds Microbiology Date/Time Source Procedure Growth Status 10/05/19 13:00 Nasal Nares MRSA Culture - Final NO METHICILLIN RESISTANT STAPH AUREUS... Complete 10/05/19 13:00 Rectum VRE Culture - Final NO VANCOMYCIN RESISTANT ENTEROCOCCUS ... Complete Laboratory Tests 10/08/19 07:00: White Blood Count 19.9H, Red Blood Count 3.98L, Hemoglobin 13.0L, Hematocrit 35.1L, Mean Corpuscular Volume 88, Mean Corpuscular Hemoglobin 32.7H, Mean Corpuscular Hemoglobin Concent 37.2H, Red Cell Distribution Width 12.7, Platelet Count 94L, Mean Platelet Volume 10.7H, Neutrophils (%) (Auto) , Lymphocytes (%) (Auto) , Monocytes (%) (Auto) , Eosinophils (%) (Auto) , Basophils (%) (Auto) , Neutrophils % (Manual) [Pending], Lymphocytes % (Manual) [Pending], Platelet Estimate [Pending], Platelet Morphology [Pending], Sodium Level 147H, Potassium Level 3.1L, Chloride Level 115H, Carbon Dioxide Level 14L , Anion Gap 18H, Blood Urea Nitrogen 70H, Creatinine 2.3H, Estimat Glomerular Filtration Rate 27.9, Glucose Level 77, Calcium Level 8.2L, Magnesium Level 1.8 , Total Bilirubin 0.7, Aspartate Amino Transf (AST/SGOT) 94H, Alanine Aminotransferase (ALT/SGPT) 25, Alkaline Phosphatase 48, Total Protein 5.1L, Albumin 1.5L, Globulin 3.6, Albumin/Globulin Ratio 0.4L, Random Vancomycin Level 12.8 Current Medications Medications (Trade) Dose Ordered Sig/Kristopher Route PRN Reason Start Time Stop Time Status Last Admin Dose Admin Acetaminophen (Tylenol) 650 mg Q4H PRN ORAL Mild Pain (Pain Scale 1-3) 10/07/19 19:15 11/04/19 15:14 Al Hydroxide/Mg Hydroxide (Mylanta II) 30 ml Q6H PRN ORAL dyspepsia 10/07/19 19:15 11/04/19 19:14 Albuterol/ Ipratropium (Albuterol/ Ipratropium) 3 ml Q4H PRN HHN Shortness of Breath 10/07/19 19:15 10/10/19 15:14 Apixaban (Eliquis) 2.5 mg BID GT 10/08/19 09:00 01/04/20 17:59 10/08/19 09:00 Aspirin (ASA) 81 mg DAILY ORAL 10/08/19 09:00 11/20/19 08:59 10/08/19 09:50 Dextrose (Dextrose 50%) 25 ml Q30M PRN IV Hypoglycemia 10/07/19 19:15 01/03/20 15:14 Dextrose (Dextrose 50%) 50 ml Q30M PRN IV Hypoglycemia 10/07/19 19:15 01/03/20 15:14 Diphenhydramine HCl (Benadryl) 25 mg Q6H PRN ORAL Itching/Pruritis 10/07/19 19:15 11/04/19 19:14 Docusate Sodium (Colace) 100 mg EVERY 12 HOURS ORAL 10/07/19 21:00 11/04/19 20:59 10/07/19 21:23 Metoprolol Tartrate (Lopressor) 25 mg EVERY 12 HOURS ORAL 10/07/19 21:00 01/03/20 20:59 Ondansetron HCl (Zofran) 4 mg Q6H PRN IVP Nausea & Vomiting 10/07/19 19:15 11/04/19 19:14 Piperacillin Sod/ Tazobactam Sod 3.375 gm/Sodium Chloride 110 ml @ 27.5 mls/hr Q12H IVPB 10/07/19 23:00 10/12/19 22:59 10/07/19 23:27 Potassium Chloride (K-Dur) 40 meq ONCE GT 10/08/19 10:00 10/08/19 11:00 10/08/19 09:50 Sodium Chloride 1,000 ml @ 100 mls/hr Q10H IV 10/08/19 10:00 11/04/19 09:59 10/08/19 09:50 Vancomycin HCl (Vanco rx to dose) 1 ea DAILY PRN MISC Per rx protocol 10/08/19 09:00 11/04/19 15:14 Vancomycin/Sodium Chloride 275 ml @ 183.333 mls/hr ONCE ONCE IVPB 10/08/19 10:00 10/08/19 11:29 10/08/19 10:08 Dejan Lindsey MD Oct 08, 2019 10:27
[2019-10-08] MEDS: Piperacillin/Tazobactam 3.375 GM in NS 110 ML IVPB SCH ×2 (11:13→23:10)
--- NOTE | 2019-10-08 11:52 | NUR ---
CASE MANAGEMENT:REVIEW 73 YR OLD MALE BIBA FROM [facility] CC; SOB SI: HYPOXIA. SEPSIS 100.2 140 24 95/69 90% ON 15L NON REBREATHER WBC+22.1 NA+149 K+5.4 BUN+102 CR+4.3 TROPONIN(+)0.326 PH+7.49 PCO2-12.6 PO2-66.6 HCO3-9.5 IS: IV ZOSYN IV FLAGYL 1L NS BOLUS HEPARIN GTT IV CARDIZEM TYLENOL [place] COVID 19 CHEST XRAY BLOOD CX : TELEMETRY STATUS DCP: FROM [facility] 10/08/19 SI: COVID 19 PNEUMONIA. RAPID AFIB ACUTE RESPIRATORY FAILURE 99.0 100 22 102/52 92% ON 15L NON REBREATHER K-3.1 BUN+70 CR+2.3 IS: IV VANCOMYCIN X1 IV ZOSYN Q12 IVF@100/HR ELIQUIS GT BID ASA GT QD LOPRESSOR GT Q12 : TELEMETRY STATUS DCP: FROM [facility] Addendum: 10/08/19 at 1618 by MIRIAM MARIA LVN LVN INTERQUAL CRITERIA MET
[2019-10-08 12:00] VITALS: BP 104/67
--- NOTE | 2019-10-08 13:07 | Surgery Progress Note ---
Surgery Progress Note Subjective Procedure Performed Right femoral temporary hemodialysis catheter insertion Symptoms: improved, tolerating diet, passing flatus Objective Last 24 Hour Vital Signs Date Time Temp Pulse Resp B/P (MAP) Pulse Ox O2 Delivery O2 Flow Rate FiO2 10/08/19 12:00 99.6 109 20 104/67 (79) 98 10/08/19 12:00 15.0 10/08/19 09:00 Non-Rebreather 10/08/19 09:00 100 102/52 10/08/19 08:00 99.0 100 22 102/52 (69) 92 10/08/19 08:00 15.0 10/08/19 08:00 87 10/08/19 04:00 15.0 10/08/19 04:00 97.9 90 21 102/59 (73) 96 10/08/19 04:00 90 10/08/19 00:00 98 10/08/19 00:00 98.3 98 20 106/57 (73) 95 10/08/19 00:00 15.0 10/07/19 21:00 94 100/47 10/07/19 20:00 89 10/07/19 20:00 15.0 10/07/19 20:00 97.7 89 22 100/47 (64) 96 10/07/19 16:00 85 10/07/19 16:00 15.0 100 10/07/19 16:00 Non-Rebreather 10/07/19 13:15 Non-Rebreather 15.0 I&O Intake and Output 10/07/19 10/08/19 19:00 07:00 Intake Total 855.0 ml Output Total 300 ml 210 ml Balance 555.0 ml -210 ml Intake IV Total 855.0 ml Output Urine Total 300 ml 210 ml # Bowel Movements 1 Cardiovascular: RSR Respiratory: decreased breath sounds Abdomen: soft, non-tender, present bowel sounds Extremities: no tenderness, no cyanosis Laboratory Tests Test 10/08/19 07:00 White Blood Count 19.9 K/UL (4.8-10.8) H Red Blood Count 3.98 M/UL (4.70-6.10) L Hemoglobin 13.0 G/DL (14.2-18.0) L Hematocrit 35.1 % (42.0-52.0) L Mean Corpuscular Volume 88 FL (80-99) Mean Corpuscular Hemoglobin 32.7 PG (27.0-31.0) H Mean Corpuscular Hemoglobin Concent 37.2 G/DL (32.0-36.0) H Red Cell Distribution Width 12.7 % (11.6-14.8) Platelet Count 94 K/UL (150-450) L Mean Platelet Volume 10.7 FL (6.5-10.1) H Neutrophils (%) (Auto) % (45.0-75.0) Lymphocytes (%) (Auto) % (20.0-45.0) Monocytes (%) (Auto) % (1.0-10.0) Eosinophils (%) (Auto) % (0.0-3.0) Basophils (%) (Auto) % (0.0-2.0) Differential Total Cells Counted 100 Neutrophils % (Manual) 96 % (45-75) H Lymphocytes % (Manual) 2 % (20-45) L Monocytes % (Manual) 2 % (1-10) Eosinophils % (Manual) 0 % (0-3) Basophils % (Manual) 0 % (0-2) Band Neutrophils 0 % (0-8) Platelet Estimate Decreased L Platelet Morphology Normal Red Blood Cell Morphology Normal Sodium Level 147 MMOL/L (136-145) H Potassium Level 3.1 MMOL/L (3.5-5.1) L Chloride Level 115 MMOL/L (98-107) H Carbon Dioxide Level 14 MMOL/L (21-32) L Anion Gap 18 mmol/L (5-15) H Blood Urea Nitrogen 70 mg/dL (7-18) H Creatinine 2.3 MG/DL (0.55-1.30) H Estimat Glomerular Filtration Rate 27.9 mL/min (>60) Glucose Level 77 MG/DL (74-106) Calcium Level 8.2 MG/DL (8.5-10.1) L Magnesium Level 1.8 MG/DL (1.8-2.4) Total Bilirubin 0.7 MG/DL (0.2-1.0) Aspartate Amino Transf (AST/SGOT) 94 U/L (15-37) H Alanine Aminotransferase (ALT/SGPT) 25 U/L (12-78) Alkaline Phosphatase 48 U/L (46-116) Total Protein 5.1 G/DL (6.4-8.2) L Albumin 1.5 G/DL (3.4-5.0) L Globulin 3.6 g/dL Albumin/Globulin Ratio 0.4 (1.0-2.7) L Random Vancomycin Level 12.8 ug/mL Plan Problems: (1) Severe sepsis Assessment & Plan: 73-year-old male with multiple comorbidities [facility] with [facility]ness of breath. Leukocytosis, lactic acidosis, abnormal electrolytes, renal insufficiency, sepsis. Discussed with PCP and service station operator and plan for urgent dialysis given patient's condition. He is fairly ill and will likely deteriorate requiring full care measures. Shortness of breath and respiratory status likely related potentially to CO VID and until diagnosed evaluated all cautions need to be taken. Urgent hemodialysis catheter placed in the emergency department by myself. Full precautions taken. See note. Will monitor and follow with recommendations. Thank you for let me precipitate patient's care trend labs iv fluids cardio eval - anticoag abx as per id discussed with nephro Pronounced interval increase in basilar predominant right hemithoracic opacification. I suspect that this reflects a layering moderate pleural effusion with associated atelectasis. Underlying infectious infiltrate is not excluded. Calcified, tortuous aorta, accentuated by rotation. No pneumothorax. Degenerative changes. IMPRESSION: Increasing right hemithoracic opacification, likely combination of layering moderate pleural effusion with associated atelectasis. Cannot exclude infectious infiltrate. dnr/dni - family aware prognosis guarded no intubation improved line removed see note push intake Orville Guzman Oct 08, 2019 13:07
--- NOTE | 2019-10-08 14:21 | Cardiac Electrophysiology PN ---
Assessment/Plan Assessment/Plan 1. Atrial fib with RVR. On Lopressor 25 bid and Eliquis 5 bid. HR better 2. Respiratory failure on face mask. 3. NSTEMI, could be due to atrial fib with RVR and demand ischemia 4. PNA and sepsis on iv ABX. Covid was negative at [facility]. Another COVID was also negative 5. HTN on Lopressor 25 bid 6. S/P PEG 7. DNR DW RN Subjective Subjective Confused on face mask and heparin drip. In atrial fib with rate 90s Objective Last 24 Hour Vital Signs Date Time Temp Pulse Resp B/P (MAP) Pulse Ox O2 Delivery O2 Flow Rate FiO2 10/08/19 12:00 99.6 109 20 104/67 (79) 98 10/08/19 12:00 123 10/08/19 12:00 15.0 10/08/19 09:00 Non-Rebreather 10/08/19 09:00 100 102/52 10/08/19 08:00 99.0 100 22 102/52 (69) 92 10/08/19 08:00 15.0 10/08/19 08:00 87 10/08/19 04:00 15.0 10/08/19 04:00 97.9 90 21 102/59 (73) 96 10/08/19 04:00 90 10/08/19 00:00 98 10/08/19 00:00 98.3 98 20 106/57 (73) 95 10/08/19 00:00 15.0 10/07/19 21:00 94 100/47 10/07/19 20:00 89 10/07/19 20:00 15.0 10/07/19 20:00 97.7 89 22 100/47 (64) 96 10/07/19 16:00 85 10/07/19 16:00 15.0 100 10/07/19 16:00 Non-Rebreather Intake and Output 10/07/19 10/08/19 19:00 07:00 Intake Total 855.0 ml Output Total 300 ml 210 ml Balance 555.0 ml -210 ml Intake IV Total 855.0 ml Output Urine Total 300 ml 210 ml # Bowel Movements 1 Laboratory Tests Test 10/08/19 07:00 White Blood Count 19.9 K/UL (4.8-10.8) H Red Blood Count 3.98 M/UL (4.70-6.10) L Hemoglobin 13.0 G/DL (14.2-18.0) L Hematocrit 35.1 % (42.0-52.0) L Mean Corpuscular Volume 88 FL (80-99) Mean Corpuscular Hemoglobin 32.7 PG (27.0-31.0) H Mean Corpuscular Hemoglobin Concent 37.2 G/DL (32.0-36.0) H Red Cell Distribution Width 12.7 % (11.6-14.8) Platelet Count 94 K/UL (150-450) L Mean Platelet Volume 10.7 FL (6.5-10.1) H Neutrophils (%) (Auto) % (45.0-75.0) Lymphocytes (%) (Auto) % (20.0-45.0) Monocytes (%) (Auto) % (1.0-10.0) Eosinophils (%) (Auto) % (0.0-3.0) Basophils (%) (Auto) % (0.0-2.0) Differential Total Cells Counted 100 Neutrophils % (Manual) 96 % (45-75) H Lymphocytes % (Manual) 2 % (20-45) L Monocytes % (Manual) 2 % (1-10) Eosinophils % (Manual) 0 % (0-3) Basophils % (Manual) 0 % (0-2) Band Neutrophils 0 % (0-8) Platelet Estimate Decreased L Platelet Morphology Normal Red Blood Cell Morphology Normal Sodium Level 147 MMOL/L (136-145) H Potassium Level 3.1 MMOL/L (3.5-5.1) L Chloride Level 115 MMOL/L (98-107) H Carbon Dioxide Level 14 MMOL/L (21-32) L Anion Gap 18 mmol/L (5-15) H Blood Urea Nitrogen 70 mg/dL (7-18) H Creatinine 2.3 MG/DL (0.55-1.30) H Estimat Glomerular Filtration Rate 27.9 mL/min (>60) Glucose Level 77 MG/DL (74-106) Calcium Level 8.2 MG/DL (8.5-10.1) L Magnesium Level 1.8 MG/DL (1.8-2.4) Total Bilirubin 0.7 MG/DL (0.2-1.0) Aspartate Amino Transf (AST/SGOT) 94 U/L (15-37) H Alanine Aminotransferase (ALT/SGPT) 25 U/L (12-78) Alkaline Phosphatase 48 U/L (46-116) Total Protein 5.1 G/DL (6.4-8.2) L Albumin 1.5 G/DL (3.4-5.0) L Globulin 3.6 g/dL Albumin/Globulin Ratio 0.4 (1.0-2.7) L Random Vancomycin Level 12.8 ug/mL Objective HEENT: No JVD HEART: Irregular S1, S2. ABDOMEN: Soft. Positive bowel sounds.PEG LUNGS: Bilateral rhonchi and rales. SKIN: No rash. MUSCULOSKELETAL: No effusions. Legs are without cellulitis. PERIPHERAL VASCULAR: No cyanosis or gangrene. NEUROLOGIC: General weakness, poorly responsive. Kei Adams MD Oct 08, 2019 14:21
--- NOTE | 2019-10-08 14:25 | Cardiac Electrophysiology PN ---
Assessment/Plan Assessment/Plan 1. Atrial fib with RVR. On Lopressor 25 bid and Eliquis 5 bid. HR better 2. Respiratory failure on face mask. 3. NSTEMI, could be due to atrial fib with RVR and demand ischemia 4. PNA and sepsis on iv ABX. Covid was negative at [facility] but COVID is now positive as of 10/05/19 5. HTN on Lopressor 25 bid 6. S/P PEG 7. DNR DW RN Subjective Subjective Confused on 15 liters face mask and in isolation as COVID is now positive. In atrial fib with rate 90s Objective Last 24 Hour Vital Signs Date Time Temp Pulse Resp B/P (MAP) Pulse Ox O2 Delivery O2 Flow Rate FiO2 10/08/19 12:00 99.6 109 20 104/67 (79) 98 10/08/19 12:00 123 10/08/19 12:00 15.0 10/08/19 09:00 Non-Rebreather 10/08/19 09:00 100 102/52 10/08/19 08:00 99.0 100 22 102/52 (69) 92 10/08/19 08:00 15.0 10/08/19 08:00 87 10/08/19 04:00 15.0 10/08/19 04:00 97.9 90 21 102/59 (73) 96 10/08/19 04:00 90 10/08/19 00:00 98 10/08/19 00:00 98.3 98 20 106/57 (73) 95 10/08/19 00:00 15.0 10/07/19 21:00 94 100/47 10/07/19 20:00 89 10/07/19 20:00 15.0 10/07/19 20:00 97.7 89 22 100/47 (64) 96 10/07/19 16:00 85 10/07/19 16:00 15.0 100 10/07/19 16:00 Non-Rebreather Intake and Output 10/07/19 10/08/19 19:00 07:00 Intake Total 855.0 ml Output Total 300 ml 210 ml Balance 555.0 ml -210 ml Intake IV Total 855.0 ml Output Urine Total 300 ml 210 ml # Bowel Movements 1 Laboratory Tests Test 10/08/19 07:00 White Blood Count 19.9 K/UL (4.8-10.8) H Red Blood Count 3.98 M/UL (4.70-6.10) L Hemoglobin 13.0 G/DL (14.2-18.0) L Hematocrit 35.1 % (42.0-52.0) L Mean Corpuscular Volume 88 FL (80-99) Mean Corpuscular Hemoglobin 32.7 PG (27.0-31.0) H Mean Corpuscular Hemoglobin Concent 37.2 G/DL (32.0-36.0) H Red Cell Distribution Width 12.7 % (11.6-14.8) Platelet Count 94 K/UL (150-450) L Mean Platelet Volume 10.7 FL (6.5-10.1) H Neutrophils (%) (Auto) % (45.0-75.0) Lymphocytes (%) (Auto) % (20.0-45.0) Monocytes (%) (Auto) % (1.0-10.0) Eosinophils (%) (Auto) % (0.0-3.0) Basophils (%) (Auto) % (0.0-2.0) Differential Total Cells Counted 100 Neutrophils % (Manual) 96 % (45-75) H Lymphocytes % (Manual) 2 % (20-45) L Monocytes % (Manual) 2 % (1-10) Eosinophils % (Manual) 0 % (0-3) Basophils % (Manual) 0 % (0-2) Band Neutrophils 0 % (0-8) Platelet Estimate Decreased L Platelet Morphology Normal Red Blood Cell Morphology Normal Sodium Level 147 MMOL/L (136-145) H Potassium Level 3.1 MMOL/L (3.5-5.1) L Chloride Level 115 MMOL/L (98-107) H Carbon Dioxide Level 14 MMOL/L (21-32) L Anion Gap 18 mmol/L (5-15) H Blood Urea Nitrogen 70 mg/dL (7-18) H Creatinine 2.3 MG/DL (0.55-1.30) H Estimat Glomerular Filtration Rate 27.9 mL/min (>60) Glucose Level 77 MG/DL (74-106) Calcium Level 8.2 MG/DL (8.5-10.1) L Magnesium Level 1.8 MG/DL (1.8-2.4) Total Bilirubin 0.7 MG/DL (0.2-1.0) Aspartate Amino Transf (AST/SGOT) 94 U/L (15-37) H Alanine Aminotransferase (ALT/SGPT) 25 U/L (12-78) Alkaline Phosphatase 48 U/L (46-116) Total Protein 5.1 G/DL (6.4-8.2) L Albumin 1.5 G/DL (3.4-5.0) L Globulin 3.6 g/dL Albumin/Globulin Ratio 0.4 (1.0-2.7) L Random Vancomycin Level 12.8 ug/mL Objective HEENT: No JVD HEART: Irregular S1, S2. ABDOMEN: Soft. Positive bowel sounds.PEG LUNGS: Bilateral rhonchi and rales. SKIN: No rash. MUSCULOSKELETAL: No effusions. Legs are without cellulitis. PERIPHERAL VASCULAR: No cyanosis or gangrene. NEUROLOGIC: General weakness, poorly responsive. Kei Adams MD Oct 08, 2019 14:25
[2019-10-08 16:00] VITALS: BP 114/62
[2019-10-08] MEDS: Eliquis 5mg tablet GT SCH (18:18)
--- NOTE | 2019-10-08 19:50 | NUR ---
NURSE NOTES: Received pt from YUAN Cavanaugh. Pt asleep and difficult to arrouse. Bed in lowest position. Call light within reach. Will continue to monitor.
[2019-10-08 20:00] VITALS: BP 133/70
--- NOTE | 2019-10-08 22:27 | Neurology Progress Note ---
Interim History Interim History ROS Limited/Unobtainable: Yes Interim History remains non verbal, resp distress Objective Physical Exam Last Vital Signs Date Time Temp Pulse Resp B/P (MAP) Pulse Ox O2 Delivery O2 Flow Rate FiO2 10/08/19 22:00 126 133/70 10/08/19 16:00 98.9 18 97 10/08/19 16:00 15.0 10/08/19 09:00 Non-Rebreather 10/07/19 16:00 100 Laboratory Tests Test 10/08/19 07:00 White Blood Count 19.9 K/UL (4.8-10.8) H Red Blood Count 3.98 M/UL (4.70-6.10) L Hemoglobin 13.0 G/DL (14.2-18.0) L Hematocrit 35.1 % (42.0-52.0) L Mean Corpuscular Volume 88 FL (80-99) Mean Corpuscular Hemoglobin 32.7 PG (27.0-31.0) H Mean Corpuscular Hemoglobin Concent 37.2 G/DL (32.0-36.0) H Red Cell Distribution Width 12.7 % (11.6-14.8) Platelet Count 94 K/UL (150-450) L Mean Platelet Volume 10.7 FL (6.5-10.1) H Neutrophils (%) (Auto) % (45.0-75.0) Lymphocytes (%) (Auto) % (20.0-45.0) Monocytes (%) (Auto) % (1.0-10.0) Eosinophils (%) (Auto) % (0.0-3.0) Basophils (%) (Auto) % (0.0-2.0) Differential Total Cells Counted 100 Neutrophils % (Manual) 96 % (45-75) H Lymphocytes % (Manual) 2 % (20-45) L Monocytes % (Manual) 2 % (1-10) Eosinophils % (Manual) 0 % (0-3) Basophils % (Manual) 0 % (0-2) Band Neutrophils 0 % (0-8) Platelet Estimate Decreased L Platelet Morphology Normal Red Blood Cell Morphology Normal Sodium Level 147 MMOL/L (136-145) H Potassium Level 3.1 MMOL/L (3.5-5.1) L Chloride Level 115 MMOL/L (98-107) H Carbon Dioxide Level 14 MMOL/L (21-32) L Anion Gap 18 mmol/L (5-15) H Blood Urea Nitrogen 70 mg/dL (7-18) H Creatinine 2.3 MG/DL (0.55-1.30) H Estimat Glomerular Filtration Rate 27.9 mL/min (>60) Glucose Level 77 MG/DL (74-106) Calcium Level 8.2 MG/DL (8.5-10.1) L Magnesium Level 1.8 MG/DL (1.8-2.4) Total Bilirubin 0.7 MG/DL (0.2-1.0) Aspartate Amino Transf (AST/SGOT) 94 U/L (15-37) H Alanine Aminotransferase (ALT/SGPT) 25 U/L (12-78) Alkaline Phosphatase 48 U/L (46-116) Total Protein 5.1 G/DL (6.4-8.2) L Albumin 1.5 G/DL (3.4-5.0) L Globulin 3.6 g/dL Albumin/Globulin Ratio 0.4 (1.0-2.7) L Random Vancomycin Level 12.8 ug/mL Impression/Recommendations Problems: (1) Severe sepsis Alo Gaxiola MD Oct 08, 2019 22:27
[2019-10-09] VITALS: BP 105/62
[2019-10-09 04:00] VITALS: BP 157/69
--- NOTE | 2019-10-09 07:39 | NUR ---
HAND-OFF: Report given to YUAN Cavanaugh. Pt stable.
[2019-10-09 08:00] VITALS: BP 148/73
--- NOTE | 2019-10-09 08:00 | NUR ---
NURSE NOTES: Recvd pt. Pt is on nonrebreather @15L. Pt is on grip wrapper showing afib with fluctuating HR, Dr Miramontes aware. Pt has GT with tube feeding bolus of 150ml q6hr followed by 150 ml of water. HOB kept elevated. Pt has Nugent for urinary retention draining to gravity. bed in lowest position, brakes on, will continue with plan of care.
[2019-10-09] MEDS: Docusate 100mg cap ORAL SCH ×2 (09:00→21:37)
[2019-10-09] MEDS: Eliquis 5mg tablet GT SCH ×2 (09:26→18:32)
[2019-10-09] MEDS: Aspirin Baby 81mg ORAL SCH (09:26)
--- NOTE | 2019-10-09 09:55 | NUR ---
RD ASSESSMENT & RECOMMENDATIONS SEE CARE ACTIVITY FOR COMPLETE ASSESSMENT DAILY ESTIMATED NEEDS: Needs based on sepsis 67.3kg 25-30 kcals/kg total kcals 1-2 g protein/kg 67-135 g total protein 25-30 mL/kg total fluid mLs NUTRITION DIAGNOSIS: Swallowing difficulty r/t dysphagia as evidenced by Pt is GT dep. CURRENT TF: Jevity 1.2 150ml q6 hrs ENTERAL NUTRITION RECOMMENDATIONS: Rec bolus increase to Jevity 1.2 @360ml bolus q6 hrs to provide 1440ml, 1728 kcal, 80g pro, 1162ml free H2O - Rec to INCREASE bolus to 360ml q6hrs (QID) to meet 100% est needs - Flush per MD. HOB over 30 degrees hrs post bolus. ADDITIONAL RECOMMENDATIONS: 1) Per SNF: 69 inches (5'9") and 148 lbs (67.3kg) 2) Monitor lytes and renal labs-> need for renal formula 3) BG 72 noted, rec bed side BG testing -> A1C for eval 4) Obtain a calibrated bed scale wt as able
[2019-10-09] MEDS ORDERED: Vancomycin 1gm/D5W 275ml IVPB ONE ×2 (10:00)
--- NOTE | 2019-10-09 10:35 | Nephrology Progress Note ---
Assessment/Plan Plan #Acute renal failure - concerns for ATN in the setting of sepsis #Hyperkalemia due to renal failure- improved #lactic acidosis - improved #Sepsis likely due to pneumonia 2/2 COVID #Hypoxemic respiratory failure 2/2 COVID #Postive COVID #NSTEMI- likely demand ischemia - continue 1/2 NS for hydration- at 100cc/hr - monitor sodium and cr - antibiotic per ID - on vanco and zosyn - avoid supratherapeutic vanco level- consider switching vanco if Cr rises ?? - cardiology eval - on apixaban - monitor platelet - remains on nonrebreather mask Subjective ROS Limited/Unobtainable: Yes Subjective sodium 147 K low - repleted Cr 2.3 WBC 19.9 Objective Objective Last 24 Hour Vital Signs Date Time Temp Pulse Resp B/P (MAP) Pulse Ox O2 Delivery O2 Flow Rate FiO2 10/09/19 09:26 114 148/73 10/09/19 08:00 99.7 114 22 148/73 (98) 95 10/09/19 04:00 102 10/09/19 04:00 98.2 64 24 157/69 (98) 93 10/09/19 04:00 15.0 10/09/19 00:00 103 10/09/19 00:00 15.0 10/09/19 00:00 100.1 96 24 105/62 (76) 94 10/08/19 22:33 100.1 10/08/19 22:00 126 133/70 10/08/19 21:00 Non-Rebreather 10/08/19 20:08 124 20 94 Non-Rebreather 15.0 100 10/08/19 20:00 15.0 10/08/19 20:00 127 10/08/19 20:00 101.3 126 26 133/70 (91) 94 10/08/19 16:00 107 10/08/19 16:00 98.9 124 18 114/62 (79) 97 10/08/19 16:00 15.0 10/08/19 12:00 99.6 109 20 104/67 (79) 98 10/08/19 12:00 123 10/08/19 12:00 15.0 Intake and Output 10/08/19 10/09/19 19:00 07:00 Output Total 800 ml 650 ml Balance -800 ml -650 ml Output Urine Total 800 ml 650 ml # Voids 1 Laboratory Tests 10/09/19 06:10: Random Vancomycin Level 19.2 Height (Feet): 6 Height (Inches): 1.00 Weight (Pounds): 177 Cahrlee Tipton M.D. Oct 09, 2019 10:35
--- NOTE | 2019-10-09 10:45 | Consultation ---
DATE OF CONSULTATION: 10/05/2019 CARDIOLOGY CONSULTATION CONSULTING PHYSICIAN: Kei Adams MD REFERRING PHYSICIAN: Hemal Linda MD REASON FOR CONSULTATION: Atrial fibrillation with rapid ventricular response. HISTORY OF PRESENT ILLNESS: The patient is a 73-year-old gentleman who was brought in from half-way for increasing shortness of breath. In the ER, the patient was noted to be in atrial fibrillation with rapid ventricular response with heart rate of 150s. The patient is unable to provide any information. Most information was obtained by reviewing the chart, my discussion with the ER physician. The patient reported he has been tested negative for COVID-19 at the nursing facility, however, it is not clear about that date of testing. There has been positive cases in that facility however. REVIEW OF SYSTEMS: Cannot be obtained. PAST MEDICAL HISTORY: 1. Hypertension. 2. Paroxysmal atrial fibrillation. 3. Dementia. FAMILY HISTORY: Noncontributory. SOCIAL HISTORY: He is a half-way resident. Does not smoke or drink alcohol. PHYSICAL EXAMINATION: VITAL SIGNS: Show blood pressure of 120/78, pulse ____01:14_ was 145 to 150, respirations 18, temperature 100.3. HEAD AND NECK: Shows no JVD. LUNGS: Coarse rhonchi. CARDIOVASCULAR: Irregular S1 and S2 and tachycardic. ABDOMEN: Soft. EXTREMITIES: Trace pitting edema. LABORATORY AND DIAGNOSTIC DATA: Labs show white count of 22, hemoglobin of 18.2, hematocrit 56.6, and platelet count of 151. Sodium 149, potassium 5.4, BUN of 102, creatinine of 4.3, and glucose of 123. [place] 0.[place] [address]. ASSESSMENT AND PLAN: 1. Shortness of breath could be due to congestive heart failure in this patient with BNP of more than 30,000. We will get an echocardiogram for further evaluation. The patient also was noted 01:57 atrial fibrillation. 2. Atrial fibrillation with rapid ventricular response. Start the patient on anticoagulation and try to control the rate with Cardizem. 3. Acute renal failure with dehydration. BUN of 102, creatinine 4.3, as well as hypernatremia sodium 149. 4. Sepsis with lactic acidosis with a lactic acid of 3.5, white count 80149. IV antibiotics per ID. 5. Dementia. 6. Hypernatremia and renal failure. 7. Troponin elevation, likely due to renal failure. Repeat troponin, EKG, and echocardiogram. Put the patient on aspirin and low-dose beta-selvin. Thank you very much for allowing me to participate in the care of this patient. Please do not hesitate to contact me for any questions regarding my evaluation. Sincerely, Kei Adams M.D. DR: Amando JOB#: [id number] CC:
[2019-10-09 10:58] LABS: ANION GAP 13 mmol/L (5-15); BLOOD UREA NITROGEN 62 mg/dL (7-18); CALCIUM 8.3 MG/DL (8.5-10.1); CARBON DIOXIDE 20 MMOL/L (21-32); CHLORIDE 117 MMOL/L (98-107); CREATININE 2.2 MG/DL (0.55-1.30); PHOSPHORUS 3.7 MG/DL (2.5-4.9); POTASSIUM 3.6 MMOL/L (3.5-5.1); SODIUM 150 MMOL/L (136-145)
--- NOTE | 2019-10-09 10:59 | Cardiac Electrophysiology PN ---
Assessment/Plan Assessment/Plan 1. Atrial fib with RVR. Increase Lopressor to 50 bid and Eliquis 5 bid. 2. Respiratory failure on face mask. 3. NSTEMI, could be due to atrial fib with RVR and demand ischemia 4. PNA and sepsis on iv ABX. Covid was negative at [facility] but COVID is now positive as of 10/05/19 5. HTN increase Lopressor to 50 bid 6. S/P PEG 7. DNR DW RN Subjective Subjective Confused on 15 liters face mask and in isolation as COVID is now positive. In atrial fib with controlled rate Objective Last 24 Hour Vital Signs Date Time Temp Pulse Resp B/P (MAP) Pulse Ox O2 Delivery O2 Flow Rate FiO2 10/09/19 09:26 114 148/73 10/09/19 08:00 99.7 114 22 148/73 (98) 95 10/09/19 04:00 102 10/09/19 04:00 98.2 64 24 157/69 (98) 93 10/09/19 04:00 15.0 10/09/19 00:00 103 10/09/19 00:00 15.0 10/09/19 00:00 100.1 96 24 105/62 (76) 94 10/08/19 22:33 100.1 10/08/19 22:00 126 133/70 10/08/19 21:00 Non-Rebreather 10/08/19 20:08 124 20 94 Non-Rebreather 15.0 100 10/08/19 20:00 15.0 10/08/19 20:00 127 10/08/19 20:00 101.3 126 26 133/70 (91) 94 10/08/19 16:00 107 10/08/19 16:00 98.9 124 18 114/62 (79) 97 10/08/19 16:00 15.0 10/08/19 12:00 99.6 109 20 104/67 (79) 98 10/08/19 12:00 123 10/08/19 12:00 15.0 Intake and Output 10/08/19 10/09/19 19:00 07:00 Output Total 800 ml 650 ml Balance -800 ml -650 ml Output Urine Total 800 ml 650 ml # Voids 1 Laboratory Tests Test 10/09/19 06:10 Sodium Level Pending Potassium Level Pending Chloride Level Pending Carbon Dioxide Level Pending Blood Urea Nitrogen Pending Creatinine Pending Estimat Glomerular Filtration Rate Pending Glucose Level Pending Calcium Level Pending Phosphorus Level Pending Magnesium Level Pending Random Vancomycin Level 19.2 ug/mL Objective HEENT: No JVD HEART: Irregular S1, S2. ABDOMEN: Soft. Positive bowel sounds.PEG LUNGS: Bilateral rhonchi and rales. SKIN: No rash. MUSCULOSKELETAL: No effusions. Legs are without cellulitis. PERIPHERAL VASCULAR: No cyanosis or gangrene. NEUROLOGIC: General weakness, poorly responsive. Kei Adams MD Oct 09, 2019 10:59
--- NOTE | 2019-10-09 11:19 | Pulmonology Progress Note ---
Assessment/Plan Assessment/Plan 73 year old man with history of atrial fibrillation, not on anticoagulation, dysphagia, s/p G-tube, chonic diastolic CHF, HTN, DNR who presented from SNF with dyspnea and hypoxemia, rapid afib, RLL pneumonia and severe sepsis, likely IRENE, hyperkalemia, metabolic acidosis. #Severe sepsis #RLL gram negative pneumonia #Acute hypoxic respiratory failure #COVID Positive -COVID19 POSITIVE, cont. Droplet precautions -Cont. broad spectrum antibiotics, vancomycin and Zosyn -Supplemental oxygen, inhaled bronchodilators #Hyperkalemia #Metabolic acidosis #Rapid afib #Thrombocytopenia - improved CODE Status: DNR/DNI, Subjective Interval Events: None new; on NRBM Constitutional: Reports: no symptoms HEENT: Repors: no symptoms Respiratory: Reports: no symptoms Cardiovascular: Reports: no symptoms Gastrointestinal/Abdominal: Reports: no symptoms Allergies: Coded Allergies: No Known Allergies (Unverified , 10/05/19) Objective Last 24 Hour Vital Signs Date Time Temp Pulse Resp B/P (MAP) Pulse Ox O2 Delivery O2 Flow Rate FiO2 10/09/19 09:26 114 148/73 10/09/19 09:00 Non-Rebreather 10/09/19 08:00 15.0 10/09/19 08:00 119 10/09/19 08:00 99.7 114 22 148/73 (98) 95 10/09/19 04:00 102 10/09/19 04:00 98.2 64 24 157/69 (98) 93 10/09/19 04:00 15.0 10/09/19 00:00 103 10/09/19 00:00 15.0 10/09/19 00:00 100.1 96 24 105/62 (76) 94 10/08/19 22:33 100.1 10/08/19 22:00 126 133/70 10/08/19 21:00 Non-Rebreather 10/08/19 20:08 124 20 94 Non-Rebreather 15.0 100 10/08/19 20:00 15.0 10/08/19 20:00 127 10/08/19 20:00 101.3 126 26 133/70 (91) 94 10/08/19 16:00 107 10/08/19 16:00 98.9 124 18 114/62 (79) 97 10/08/19 16:00 15.0 10/08/19 12:00 99.6 109 20 104/67 (79) 98 10/08/19 12:00 123 10/08/19 12:00 15.0 Intake and Output 10/08/19 10/09/19 19:00 07:00 Output Total 800 ml 650 ml Balance -800 ml -650 ml Output Urine Total 800 ml 650 ml # Voids 1 General Appearance: no acute distress HEENT: normocephalic Respiratory/Chest: chest wall non-tender, lungs clear Cardiovascular: normal peripheral pulses, normal rate Abdomen: normal bowel sounds Laboratory Tests 10/09/19 06:10: Sodium Level 150H, Potassium Level 3.6, Chloride Level 117H, Carbon Dioxide Level 20L, Anion Gap 13, Blood Urea Nitrogen 62H, Creatinine 2.2H, Estimat Glomerular Filtration Rate 29.4, Glucose Level 116H, Calcium Level 8.3L, Phosphorus Level 3.7, Magnesium Level 1.9, Random Vancomycin Level 19.2 Current Medications Medications (Trade) Dose Ordered Sig/Kristopher Route PRN Reason Start Time Stop Time Status Last Admin Dose Admin Acetaminophen (Tylenol) 650 mg Q4H PRN ORAL Mild Pain (Pain Scale 1-3) 10/07/19 19:15 11/04/19 15:14 10/08/19 22:03 Al Hydroxide/Mg Hydroxide (Mylanta II) 30 ml Q6H PRN ORAL dyspepsia 10/07/19 19:15 11/04/19 19:14 Albuterol/ Ipratropium (Combivent Respimat) 1 puff Q4H PRN INH Shortness of Breath 10/08/19 12:15 11/07/19 12:14 Apixaban (Eliquis) 5 mg BID GT 10/08/19 18:00 01/06/20 17:59 10/09/19 09:26 Aspirin (ASA) 81 mg DAILY ORAL 10/08/19 09:00 11/20/19 08:59 10/09/19 09:26 Dextrose (Dextrose 50%) 25 ml Q30M PRN IV Hypoglycemia 10/07/19 19:15 01/03/20 15:14 Dextrose (Dextrose 50%) 50 ml Q30M PRN IV Hypoglycemia 10/07/19 19:15 01/03/20 15:14 Diphenhydramine HCl (Benadryl) 25 mg Q6H PRN ORAL Itching/Pruritis 10/07/19 19:15 11/04/19 19:14 Docusate Sodium (Colace) 100 mg EVERY 12 HOURS ORAL 10/07/19 21:00 11/04/19 20:59 10/07/19 21:23 Metoprolol Tartrate (Lopressor) 50 mg EVERY 12 HOURS ORAL 10/09/19 21:00 01/03/20 20:59 Ondansetron HCl (Zofran) 4 mg Q6H PRN IVP Nausea & Vomiting 10/07/19 19:15 11/04/19 19:14 Piperacillin Sod/ Tazobactam Sod 3.375 gm/Sodium Chloride 110 ml @ 27.5 mls/hr Q12H IVPB 10/07/19 23:00 10/12/19 22:59 10/08/19 23:10 Sodium Chloride 1,000 ml @ 75 mls/hr [id number] IV 10/09/19 11:00 11/08/19 10:59 10/09/19 11:09 Vancomycin HCl (Vanco rx to dose) 1 ea DAILY PRN MISC Per rx protocol 10/08/19 09:00 11/04/19 15:14 Vancomycin HCl 1 gm/Dextrose 275 ml @ 183.708 mls/hr ONCE ONCE IVPB 10/09/19 10:00 10/09/19 11:29 10/09/19 09:27 Dejan Lindsey MD Oct 09, 2019 11:19
[2019-10-09] MEDS: Piperacillin/Tazobactam 3.375 GM in NS 110 ML IVPB SCH ×2 (11:24→22:31)
[2019-10-09 12:00] VITALS: BP 114/75
--- NOTE | 2019-10-09 12:30 | NUR ---
NURSE NOTES: Dr Whitehead called family and family aware of poor prognosis, planning for hospice and comfort care.
--- NOTE | 2019-10-09 13:26 | Surgery Progress Note ---
Surgery Progress Note Subjective Procedure Performed Right femoral temporary hemodialysis catheter insertion Additional Comments labs noted renal improving sodium up vitals stable respiratory declining Objective Last 24 Hour Vital Signs Date Time Temp Pulse Resp B/P (MAP) Pulse Ox O2 Delivery O2 Flow Rate FiO2 10/09/19 12:00 15.0 10/09/19 12:00 97.9 97 20 114/75 (88) 96 10/09/19 11:43 94 Non-Rebreather 15.0 100 10/09/19 09:26 114 148/73 10/09/19 09:00 Non-Rebreather 10/09/19 08:00 15.0 10/09/19 08:00 119 10/09/19 08:00 99.7 114 22 148/73 (98) 95 10/09/19 04:00 102 10/09/19 04:00 98.2 64 24 157/69 (98) 93 10/09/19 04:00 15.0 10/09/19 00:00 103 10/09/19 00:00 15.0 10/09/19 00:00 100.1 96 24 105/62 (76) 94 10/08/19 22:33 100.1 10/08/19 22:00 126 133/70 10/08/19 21:00 Non-Rebreather 10/08/19 20:08 124 20 94 Non-Rebreather 15.0 100 10/08/19 20:00 15.0 10/08/19 20:00 127 10/08/19 20:00 101.3 126 26 133/70 (91) 94 10/08/19 16:00 107 10/08/19 16:00 98.9 124 18 114/62 (79) 97 10/08/19 16:00 15.0 I&O Intake and Output 10/08/19 10/09/19 19:00 07:00 Output Total 800 ml 650 ml Balance -800 ml -650 ml Output Urine Total 800 ml 650 ml # Voids 1 Dressing: other Wound: other Drains: other Cardiovascular: RSR Respiratory: decreased breath sounds Abdomen: soft, non-tender, present bowel sounds Extremities: no cyanosis Laboratory Tests Test 10/09/19 06:10 Sodium Level 150 MMOL/L (136-145) H Potassium Level 3.6 MMOL/L (3.5-5.1) Chloride Level 117 MMOL/L (98-107) H Carbon Dioxide Level 20 MMOL/L (21-32) L Anion Gap 13 mmol/L (5-15) Blood Urea Nitrogen 62 mg/dL (7-18) H Creatinine 2.2 MG/DL (0.55-1.30) H Estimat Glomerular Filtration Rate 29.4 mL/min (>60) Glucose Level 116 MG/DL (74-106) H Calcium Level 8.3 MG/DL (8.5-10.1) L Phosphorus Level 3.7 MG/DL (2.5-4.9) Magnesium Level 1.9 MG/DL (1.8-2.4) Random Vancomycin Level 19.2 ug/mL Plan Problems: (1) Severe sepsis Assessment & Plan: 73-year-old male with multiple comorbidities [facility] with [facility]. Leukocytosis, lactic acidosis, abnormal electrolytes, renal insufficiency, sepsis. Discussed with PCP and dynamicist and plan for urgent dialysis given patient's condition. He is fairly ill and will likely deteriorate requiring full care measures. Shortness of breath and respiratory status likely related potentially to CO VID and until diagnosed evaluated all cautions need to be taken. Urgent hemodialysis catheter placed in the emergency department by myself. Full precautions taken. See note. Will monitor and follow with recommendations. Thank you for let me precipitate patient's care trend labs iv fluids cardio eval - anticoag abx as per id discussed with nephro Pronounced interval increase in basilar predominant right hemithoracic opacification. I suspect that this reflects a layering moderate pleural effusion with associated atelectasis. Underlying infectious infiltrate is not excluded. Calcified, tortuous aorta, accentuated by rotation. No pneumothorax. Degenerative changes. IMPRESSION: Increasing right hemithoracic opacification, likely combination of layering moderate pleural effusion with associated atelectasis. Cannot exclude infectious infiltrate. dnr/dni - family aware prognosis guarded no intubation improved line removed see note push intake DAILY ESTIMATED NEEDS: Needs based on sepsis 67.3kg 25-30 kcals/kg total kcals 1-2 g protein/kg 67-135 g total protein 25-30 mL/kg total fluid mLs NUTRITION DIAGNOSIS: Swallowing difficulty r/t dysphagia as evidenced by Pt is GT dep. CURRENT TF: Jevity 1.2 150ml q6 hrs ENTERAL NUTRITION RECOMMENDATIONS: Rec bolus increase to Jevity 1.2 @360ml bolus q6 hrs to provide 1440ml, 1728 kcal, 80g pro, 1162ml free H2O - Rec to INCREASE bolus to 360ml q6hrs (QID) to meet 100% est needs - Flush per MD. HOB over 30 degrees hrs post bolus. ADDITIONAL RECOMMENDATIONS: 1) Per SNF: 69 inches (5'9") and 148 lbs (67.3kg) 2) Monitor lytes and renal labs-> need for renal formula 3) BG 72 noted, rec bed side BG testing -> A1C for eval 4) Obtain a calibrated bed scale wt as able Orville Guzman Oct 09, 2019 13:26
--- NOTE | 2019-10-09 14:24 | NUR ---
*-* INSURANCE *-* ALL CLINICALS AND REVIEWS HAVE BEEN FAXED TO: [employer] ([employer]) #[phone] fax#[phone] Addendum: 10/10/19 at 0924 by EJ GREEN *-* INSURANCE FAX RECEIVED AUTHORIZATION *-* AUTHORIZATION RECIEVED VIA FAX, FAXED TO [facility]ARR[facility]. DOA: 10/05/19 CASE# [id number] AUTH# [id number] AUTH VALID FROM/TO:
--- NOTE | 2019-10-09 14:55 | General Progress Note ---
Assessment/Plan Assessment/Plan: 73 year old man with history of atrial fibrillation, not on anticoagulation, dysphagia, s/p G-tube, chonic diastolic CHF, HTN, DNR who presented from SNF with dyspnea and hypoxemia, rapid afib, RLL pneumonia and severe sepsis, likely IRENE, hyperkalemia, metabolic acidosis. #Severe sepsis #RLL gram negative pneumonia #Acute hypoxic respiratory failure #COVID Positive -cont. inpt medical care, tele -COVID19 POSITIVE, cont. Droplet precautions -Cont. broad spectrum antibiotics per ID -Supplemental oxygen, inhaled bronchodilators -CXR 10/05 w/right opacification, ?moderate effusion -pt is DNR/DNI, comfort measures -ID and Pulm consulted -d/w family on 10/06, Jessica Barba, , on prognosis, POC , stated pt with poor prognosis on comfort measures at this time -leukocytosis downtrending, ctm -cont. ID/Pulm care -Long discussion with patient's niece, Armen, w/medical coding instructor, reguarding prognosis, status, end of life care. Family wishes to have pt under hospice care. -[facility] consulted #Suspected IRENE #Hyperkalemia - resolved #Metabolic acidosis -IV hydration -Avoid nephrotoxic meds -Monitor BMP -10/04: s/p HD cath placed right femoral by gen surgery -Nephrology consulted, HD per nephro #Rapid afib -cardiac monitoring -trop 0.393 -Cardiology following: metoprolol, may need to change to digoxin or amio if pressures are borderline low -Eliquis 2.5 BID #Thrombocytopenia - improved -Plt 151 >> 97 >>106 -likely 2/2 heparin ggt -no signs of bleeding at this time, monitor for signs of bleeding -off heparin ggt CODE Status: DNR/DNI, reviewed POLST in retirement transfer papers VTE PPx: Vijay I spent 35 minutes on this patient's case, >50% time was dedicated to counseling and/or care coordination with RN, Cardiology. Additional 25 minutes spent with family counseling regarding end-of-life care, hospice. Subjective Allergies: Coded Allergies: No Known Allergies (Unverified , 10/05/19) Subjective F/u for sepsis, respiratory failure, COVID positive. Pt remains on non-rebreather, looks uncomfortable today, non-communicative but will open eyes. Long discussion with patient's niece, Armen, w/medical coding instructor, reguarding prognosis, status, end of life care. Family wishes to have pt under hospice care. Objective Last 24 Hour Vital Signs Date Time Temp Pulse Resp B/P (MAP) Pulse Ox O2 Delivery O2 Flow Rate FiO2 10/09/19 12:00 91 10/09/19 12:00 15.0 10/09/19 12:00 97.9 97 20 114/75 (88) 96 10/09/19 11:43 94 Non-Rebreather 15.0 100 10/09/19 09:26 114 148/73 10/09/19 09:00 Non-Rebreather 10/09/19 08:00 15.0 10/09/19 08:00 119 10/09/19 08:00 99.7 114 22 148/73 (98) 95 10/09/19 04:00 102 10/09/19 04:00 98.2 64 24 157/69 (98) 93 10/09/19 04:00 15.0 10/09/19 00:00 103 10/09/19 00:00 15.0 10/09/19 00:00 100.1 96 24 105/62 (76) 94 10/08/19 22:33 100.1 10/08/19 22:00 126 133/70 10/08/19 21:00 Non-Rebreather 10/08/19 20:08 124 20 94 Non-Rebreather 15.0 100 10/08/19 20:00 15.0 10/08/19 20:00 127 10/08/19 20:00 101.3 126 26 133/70 (91) 94 10/08/19 16:00 107 10/08/19 16:00 98.9 124 18 114/62 (79) 97 10/08/19 16:00 15.0 Intake and Output 10/08/19 10/09/19 19:00 07:00 Output Total 800 ml 650 ml Balance -800 ml -650 ml Output Urine Total 800 ml 650 ml # Voids 1 Laboratory Tests 10/09/19 06:10: Sodium Level 150H, Potassium Level 3.6, Chloride Level 117H, Carbon Dioxide Level 20L, Anion Gap 13, Blood Urea Nitrogen 62H, Creatinine 2.2H, Estimat Glomerular Filtration Rate 29.4, Glucose Level 116H, Calcium Level 8.3L, Phosphorus Level 3.7, Magnesium Level 1.9, Random Vancomycin Level 19.2 Height (Feet): 6 Height (Inches): 1.00 Weight (Pounds): 177 Objective General Appearance: lethargic, will open eyes, appears uncomfortable HEENT: atraumatic, anicteric Neck: supple, normal inspection Respiratory/Chest: on non-rebreather, coarse rhonchi b/L Cardiovascular/Chest: RR Abd: Soft, NT/ND, PEG in place, C/D/I Ext: Rt femoral cath c/d/i, no edema Valarie Whitehead M.D. Oct 09, 2019 14:55
[2019-10-09 16:00] VITALS: BP 137/74
[2019-10-09 20:00] VITALS: BP 100/50
--- NOTE | 2019-10-09 20:00 | NUR ---
Got report from Afshan BOLDEN. Pt in stable condition. No s/s of distress or discomfort noted. Pt resting in bed comfortably. Bed in low and locked position, call light within reach, bedside table within reach. Continue to monitor.
--- NOTE | 2019-10-09 20:36 | Infectious Diseases Prog Note ---
Assessment/Plan Assessment/Plan ASSESSMENT AND PLAN: 1. covid-19 virus infection, likely bacterial pna, sepsis, leukocytosis, fevers , DNR/DNI, ARF, respiratory failure - vancomycin, zosyn - day # 4 abx - pneumonia c/w bacterial pneumonia - f/u labs and chest x-ray as indicated - poor prognosis - continue supportive care 2. Renal failure. 3. Hemodialysis. 4. Dysphagia. G-tube. 5. Aspiration risk. 6. Atrial fibrillation. 7. Anticoagulation. 8. Dysphagia. 9. CHF. 10. Hypertension. 11. No known drug allergies. 12. Social history negative. 13. Family history noncontributory. 14. MAR was noted. 15. Case discussed with RN. 16. Patient was seen in the emergency room. 17. Patient is a DNR at this time. Subjective Constitutional: Reports: fever, other - doing poorly, lethargic, on breathing mask HEENT: Reports: congestion Respiratory: Reports: shortness of breath Cardiovascular: Reports: other - no pressors Gastrointestinal/Abdominal: Denies: nausea, vomiting, diarrhea Genitourinary: Reports: other - + alston Neurologic: Reports: weakness Psychiatric: Reports: other - NA Skin: Denies: rash Hematologic: Denies: bleeding Musculoskeletal: Reports: other - NA Allergies: Coded Allergies: No Known Allergies (Unverified , 10/05/19) Objective Vital Signs Last 24 Hour Vital Signs Date Time Temp Pulse Resp B/P (MAP) Pulse Ox O2 Delivery O2 Flow Rate FiO2 10/09/19 16:00 15.0 10/09/19 16:00 119 10/09/19 16:00 99.6 95 18 137/74 (95) 94 10/09/19 12:00 91 10/09/19 12:00 15.0 10/09/19 12:00 97.9 97 20 114/75 (88) 96 10/09/19 11:43 94 Non-Rebreather 15.0 100 10/09/19 09:26 114 148/73 10/09/19 09:00 Non-Rebreather 10/09/19 08:00 15.0 10/09/19 08:00 119 10/09/19 08:00 99.7 114 22 148/73 (98) 95 10/09/19 04:00 102 10/09/19 04:00 98.2 64 24 157/69 (98) 93 10/09/19 04:00 15.0 10/09/19 00:00 103 10/09/19 00:00 15.0 10/09/19 00:00 100.1 96 24 105/62 (76) 94 10/08/19 22:33 100.1 10/08/19 22:00 126 133/70 10/08/19 21:00 Non-Rebreather Height (Feet): 6 Height (Inches): 1.00 Weight (Pounds): 177 General Appearance: other - on breathing mask, lethargic HEENT: normocephalic, atraumatic, anicteric, mucous membranes moist Respiratory/Chest: crackles/rales, rhonchi - bilaterally Cardiovascular: normal rate, regular rhythm, no gallop/murmur, no JVD Abdomen: normal bowel sounds, soft, non tender, no organomegaly, non distended Genitourinary: other - + alston - urine slt cloudy Extremities: no cyanosis Skin: no rash Neurologic/Psychiatric: director of staff development II-XII grossly normal, alert, responsive Lymphatic: no neck adenopathy Musculoskeletal: no effusion Objective 10/07/19 - EXAM: XR Chest, 1 View CLINICAL HISTORY: INFECT TECHNIQUE: Frontal view of the chest. COMPARISON: 10/05/19. FINDINGS: Pronounced interval increase in basilar predominant right hemithoracic opacification. I suspect that this reflects a layering moderate pleural effusion with associated atelectasis. Underlying infectious infiltrate is not excluded. Calcified, tortuous aorta, accentuated by rotation. No pneumothorax. Degenerative changes. IMPRESSION: Increasing right hemithoracic opacification, likely combination of layering moderate pleural effusion with associated atelectasis. Cannot exclude infectious infiltrate. Microbiology Date/Time Source Procedure Growth Status 10/05/19 10:15 Blood Blood Culture - Preliminary NO GROWTH AFTER 72 HOURS Resulted 10/05/19 13:00 Nasal Nares MRSA Culture - Final NO METHICILLIN RESISTANT STAPH AUREUS... Complete 10/05/19 13:00 Rectum VRE Culture - Final NO VANCOMYCIN RESISTANT ENTEROCOCCUS ... Complete Microbiology Date/Time Source Procedure Growth Status 10/05/19 10:15 Blood Blood Culture - Preliminary NO GROWTH AFTER 72 HOURS Resulted 10/05/19 13:00 Nasal Nares MRSA Culture - Final NO METHICILLIN RESISTANT STAPH AUREUS... Complete 10/05/19 13:00 Rectum VRE Culture - Final NO VANCOMYCIN RESISTANT ENTEROCOCCUS ... Complete Labs Test 10/07/19 04:38 10/08/19 07:00 10/09/19 06:10 White Blood Count 23.7 K/UL (4.8-10.8) 19.9 K/UL (4.8-10.8) Red Blood Count 4.37 M/UL (4.70-6.10) 3.98 M/UL (4.70-6.10) Hemoglobin 14.1 G/DL (14.2-18.0) 13.0 G/DL (14.2-18.0) Hematocrit 39.0 % (42.0-52.0) 35.1 % (42.0-52.0) Mean Corpuscular Volume 89 FL (80-99) 88 FL (80-99) Mean Corpuscular Hemoglobin 32.2 PG (27.0-31.0) 32.7 PG (27.0-31.0) Mean Corpuscular Hemoglobin Concent 36.1 G/DL (32.0-36.0) 37.2 G/DL (32.0-36.0) Red Cell Distribution Width 12.0 % (11.6-14.8) 12.7 % (11.6-14.8) Platelet Count 106 K/UL (150-450) 94 K/UL (150-450) Mean Platelet Volume 10.8 FL (6.5-10.1) 10.7 FL (6.5-10.1) Neutrophils (%) (Auto) % (45.0-75.0) % (45.0-75.0) Lymphocytes (%) (Auto) % (20.0-45.0) % (20.0-45.0) Monocytes (%) (Auto) % (1.0-10.0) % (1.0-10.0) Eosinophils (%) (Auto) % (0.0-3.0) % (0.0-3.0) Basophils (%) (Auto) % (0.0-2.0) % (0.0-2.0) Differential Total Cells Counted 100 100 Neutrophils % (Manual) 81 % (45-75) 96 % (45-75) Lymphocytes % (Manual) 3 % (20-45) 2 % (20-45) Monocytes % (Manual) 4 % (1-10) 2 % (1-10) Eosinophils % (Manual) 0 % (0-3) 0 % (0-3) Basophils % (Manual) 0 % (0-2) 0 % (0-2) Band Neutrophils 12 % (0-8) 0 % (0-8) Platelet Estimate Decreased Decreased Platelet Morphology Normal Normal Red Blood Cell Morphology Normal Normal Activated Partial Thromboplast Time 35 SEC (23-33) Sodium Level 146 MMOL/L (136-145) 147 MMOL/L (136-145) 150 MMOL/L (136-145) Potassium Level 3.5 MMOL/L (3.5-5.1) 3.1 MMOL/L (3.5-5.1) 3.6 MMOL/L (3.5-5.1) Chloride Level 115 MMOL/L (98-107) 115 MMOL/L (98-107) 117 MMOL/L (98-107) Carbon Dioxide Level 12 MMOL/L (21-32) 14 MMOL/L (21-32) 20 MMOL/L (21-32) Blood Urea Nitrogen 75 mg/dL (7-18) 70 mg/dL (7-18) 62 mg/dL (7-18) Creatinine 2.3 MG/DL (0.55-1.30) 2.3 MG/DL (0.55-1.30) 2.2 MG/DL (0.55-1.30) Estimat Glomerular Filtration Rate 27.9 mL/min (>60) 27.9 mL/min (>60) 29.4 mL/min (>60) Glucose Level 72 MG/DL (74-106) 77 MG/DL (74-106) 116 MG/DL (74-106) Calcium Level 8.1 MG/DL (8.5-10.1) 8.2 MG/DL (8.5-10.1) 8.3 MG/DL (8.5-10.1) Anion Gap 18 mmol/L (5-15) 13 mmol/L (5-15) Magnesium Level 1.8 MG/DL (1.8-2.4) 1.9 MG/DL (1.8-2.4) Total Bilirubin 0.7 MG/DL (0.2-1.0) Aspartate Amino Transf (AST/SGOT) 94 U/L (15-37) Alanine Aminotransferase (ALT/SGPT) 25 U/L (12-78) Alkaline Phosphatase 48 U/L (46-116) Total Protein 5.1 G/DL (6.4-8.2) Albumin 1.5 G/DL (3.4-5.0) Globulin 3.6 g/dL Albumin/Globulin Ratio 0.4 (1.0-2.7) Random Vancomycin Level 12.8 ug/mL 19.2 ug/mL Phosphorus Level 3.7 MG/DL (2.5-4.9) Laboratory Tests Test 10/09/19 06:10 Sodium Level 150 MMOL/L (136-145) H Potassium Level 3.6 MMOL/L (3.5-5.1) Chloride Level 117 MMOL/L (98-107) H Carbon Dioxide Level 20 MMOL/L (21-32) L Anion Gap 13 mmol/L (5-15) Blood Urea Nitrogen 62 mg/dL (7-18) H Creatinine 2.2 MG/DL (0.55-1.30) H Estimat Glomerular Filtration Rate 29.4 mL/min (>60) Glucose Level 116 MG/DL (74-106) H Calcium Level 8.3 MG/DL (8.5-10.1) L Phosphorus Level 3.7 MG/DL (2.5-4.9) Magnesium Level 1.9 MG/DL (1.8-2.4) Random Vancomycin Level 19.2 ug/mL Current Medications Medications (Trade) Dose Ordered Sig/Kristopher Route PRN Reason Start Time Stop Time Status Last Admin Dose Admin Acetaminophen (Tylenol) 650 mg Q4H PRN ORAL Mild Pain (Pain Scale 1-3) 10/07/19 19:15 11/04/19 15:14 10/08/19 22:03 Al Hydroxide/Mg Hydroxide (Mylanta II) 30 ml Q6H PRN ORAL dyspepsia 10/07/19 19:15 11/04/19 19:14 Albuterol/ Ipratropium (Combivent Respimat) 1 puff Q4H PRN INH Shortness of Breath 10/08/19 12:15 11/07/19 12:14 Apixaban (Eliquis) 5 mg BID GT 10/08/19 18:00 01/06/20 17:59 10/09/19 18:32 Aspirin (ASA) 81 mg DAILY ORAL 10/08/19 09:00 11/20/19 08:59 10/09/19 09:26 Dextrose (Dextrose 50%) 25 ml Q30M PRN IV Hypoglycemia 10/07/19 19:15 01/03/20 15:14 Dextrose (Dextrose 50%) 50 ml Q30M PRN IV Hypoglycemia 10/07/19 19:15 01/03/20 15:14 Diphenhydramine HCl (Benadryl) 25 mg Q6H PRN ORAL Itching/Pruritis 10/07/19 19:15 11/04/19 19:14 Docusate Sodium (Colace) 100 mg EVERY 12 HOURS ORAL 10/07/19 21:00 11/04/19 20:59 10/07/19 21:23 Metoprolol Tartrate (Lopressor) 50 mg EVERY 12 HOURS ORAL 10/09/19 21:00 01/03/20 20:59 Ondansetron HCl (Zofran) 4 mg Q6H PRN IVP Nausea & Vomiting 10/07/19 19:15 11/04/19 19:14 Piperacillin Sod/ Tazobactam Sod 3.375 gm/Sodium Chloride 110 ml @ 27.5 mls/hr Q12H IVPB 10/07/19 23:00 10/12/19 22:59 10/09/19 11:24 Sodium Chloride 1,000 ml @ 75 mls/hr [id number] IV 10/09/19 11:00 11/08/19 10:59 10/09/19 11:09 Vancomycin HCl (Vanco rx to dose) 1 ea DAILY PRN MISC Per rx protocol 10/08/19 09:00 11/04/19 15:14 Floyd Sanford MD Oct 09, 2019 20:36
--- NOTE | 2019-10-09 20:38 | Neurology Progress Note ---
Interim History Interim History ROS Limited/Unobtainable: Yes Interim History in resp distress, non verbal Objective Physical Exam Last Vital Signs Date Time Temp Pulse Resp B/P (MAP) Pulse Ox O2 Delivery O2 Flow Rate FiO2 10/09/19 16:00 15.0 10/09/19 16:00 119 10/09/19 16:00 99.6 18 137/74 (95) 94 10/09/19 11:43 Non-Rebreather 100 Laboratory Tests Test 10/09/19 06:10 Sodium Level 150 MMOL/L (136-145) H Potassium Level 3.6 MMOL/L (3.5-5.1) Chloride Level 117 MMOL/L (98-107) H Carbon Dioxide Level 20 MMOL/L (21-32) L Anion Gap 13 mmol/L (5-15) Blood Urea Nitrogen 62 mg/dL (7-18) H Creatinine 2.2 MG/DL (0.55-1.30) H Estimat Glomerular Filtration Rate 29.4 mL/min (>60) Glucose Level 116 MG/DL (74-106) H Calcium Level 8.3 MG/DL (8.5-10.1) L Phosphorus Level 3.7 MG/DL (2.5-4.9) Magnesium Level 1.9 MG/DL (1.8-2.4) Random Vancomycin Level 19.2 ug/mL Impression/Recommendations Problems: (1) Severe sepsis Alo Gaxiola MD Oct 09, 2019 20:38
[2019-10-09] MEDS: Metoprolol Tartrate 50mg tab ORAL SCH (21:00)
[2019-10-10] VITALS: BP 150/74
[2019-10-10 04:00] VITALS: BP 114/69
--- NOTE | 2019-10-10 07:45 | NUR ---
HAND-OFF: Report given to Elba BOLDEN.
--- NOTE | 2019-10-10 07:50 | NUR ---
NURSE NOTES: Received report from Stefano/RN, Patient is asleep, lying semi-silva, resting comfortably. On 15L non-rebreather mask, No distress/SOB noted. quality assurance monitor body in place. IV on Left FA, Saline locked, and Right femoral PICC line double lumen, patent, and asymptomatic. Nugent cath draining well to gravity. Bed in low position and locked, Bad alarm engaged, side- rails up x3, Call light within reach, Encouraged to use call light when needed. Will continue plan of care.
[2019-10-10 08:00] VITALS: BP 120/77
[2019-10-10 08:38] LABS: HEMATOCRIT 33.3 % (42.0-52.0); HEMOGLOBIN 11.9 G/DL (14.2-18.0); MEAN CORPUSCULAR VOLUME 90 FL (80-99); PLATELET COUNT 103 K/UL (150-450); RED BLOOD COUNT 3.71 M/UL (4.70-6.10); RED CELL DISTRIBUTION WIDTH 12.6 % (11.6-14.8); WHITE BLOOD COUNT 14.3 K/UL (4.8-10.8)
[2019-10-10] MEDS: Docusate 100mg cap ORAL SCH (08:47)
[2019-10-10] MEDS: Aspirin Baby 81mg ORAL SCH (08:47)
[2019-10-10] MEDS: Eliquis 5mg tablet GT SCH ×2 (08:47→17:53)
[2019-10-10] MEDS: Metoprolol Tartrate 50mg tab ORAL SCH (08:48)
[2019-10-10 08:50] LABS: ANION GAP 17 mmol/L (5-15); BLOOD UREA NITROGEN 58 mg/dL (7-18); CARBON DIOXIDE 16 MMOL/L (21-32); CHLORIDE 123 MMOL/L (98-107); CREATININE 1.8 MG/DL (0.55-1.30); POTASSIUM 3.2 MMOL/L (3.5-5.1); SODIUM 156 MMOL/L (136-145)
--- NOTE | 2019-10-10 09:25 | Surgery Progress Note ---
Surgery Progress Note Subjective Procedure Performed Right femoral temporary hemodialysis catheter insertion Additional Comments afebrile, HD stable leukocytosis improved h/h noted renal function improving more alert Objective Last 24 Hour Vital Signs Date Time Temp Pulse Resp B/P (MAP) Pulse Ox O2 Delivery O2 Flow Rate FiO2 10/10/19 08:48 75 120/77 10/10/19 08:00 98.1 75 20 120/77 (91) 98 10/10/19 04:23 15.0 10/10/19 04:00 116 10/10/19 04:00 99.0 110 20 114/69 (84) 95 10/10/19 00:00 97.5 120 20 150/74 (99) 95 10/10/19 00:00 15.0 10/10/19 00:00 125 10/09/19 21:00 116 95/50 10/09/19 21:00 Non-Rebreather 10/09/19 20:00 94 Non-Rebreather 15.0 100 10/09/19 20:00 97.2 116 20 100/50 (67) 95 10/09/19 20:00 117 10/09/19 20:00 15.0 10/09/19 20:00 118 20 94 Non-Rebreather 15.0 100 10/09/19 16:00 15.0 10/09/19 16:00 119 10/09/19 16:00 99.6 95 18 137/74 (95) 94 10/09/19 12:00 91 10/09/19 12:00 15.0 10/09/19 12:00 97.9 97 20 114/75 (88) 96 10/09/19 11:43 94 Non-Rebreather 15.0 100 10/09/19 09:26 114 148/73 I&O Intake and Output 10/09/19 10/10/19 19:00 07:00 Output Total 700 ml 820 ml Balance -700 ml -820 ml Output Urine Total 700 ml 820 ml Dressing: other Wound: other Drains: other Cardiovascular: RSR Respiratory: decreased breath sounds Abdomen: soft, non-tender, present bowel sounds Extremities: no tenderness, no cyanosis, other Laboratory Tests Test 10/10/19 07:45 White Blood Count 14.3 K/UL (4.8-10.8) H Red Blood Count 3.71 M/UL (4.70-6.10) L Hemoglobin 11.9 G/DL (14.2-18.0) L Hematocrit 33.3 % (42.0-52.0) L Mean Corpuscular Volume 90 FL (80-99) Mean Corpuscular Hemoglobin 31.9 PG (27.0-31.0) H Mean Corpuscular Hemoglobin Concent 35.6 G/DL (32.0-36.0) Red Cell Distribution Width 12.6 % (11.6-14.8) Platelet Count 103 K/UL (150-450) L Mean Platelet Volume 11.1 FL (6.5-10.1) H Neutrophils (%) (Auto) % (45.0-75.0) Lymphocytes (%) (Auto) % (20.0-45.0) Monocytes (%) (Auto) % (1.0-10.0) Eosinophils (%) (Auto) % (0.0-3.0) Basophils (%) (Auto) % (0.0-2.0) Neutrophils % (Manual) Pending Lymphocytes % (Manual) Pending Platelet Estimate Pending Platelet Morphology Pending Sodium Level 156 MMOL/L (136-145) H Potassium Level 3.2 MMOL/L (3.5-5.1) L Chloride Level 123 MMOL/L (98-107) H Carbon Dioxide Level 16 MMOL/L (21-32) L Anion Gap 17 mmol/L (5-15) H Blood Urea Nitrogen 58 mg/dL (7-18) H Creatinine 1.8 MG/DL (0.55-1.30) H Estimat Glomerular Filtration Rate 37.1 mL/min (>60) Glucose Level 92 MG/DL (74-106) Calcium Level 8.0 MG/DL (8.5-10.1) L Plan Problems: (1) Severe sepsis Assessment & Plan: 73-year-old male with multiple comorbidities presents from senior living with shortness of breath. Leukocytosis, lactic acidosis, abnormal electrolytes, renal insufficiency, sepsis. Discussed with PCP and insurance clerk and plan for urgent dialysis given patient's condition. He is fairly ill and will likely deteriorate requiring full care measures. Shortness of breath and respiratory status likely related potentially to CO VID and until diagnosed evaluated all cautions need to be taken. Urgent hemodialysis catheter placed in the emergency department by myself. Full precautions taken. See note. Will monitor and follow with recommendations. Thank you for let me precipitate patient's care trend labs iv fluids cardio eval - anticoag abx as per id discussed with nephro Pronounced interval increase in basilar predominant right hemithoracic opacification. I suspect that this reflects a layering moderate pleural effusion with associated atelectasis. Underlying infectious infiltrate is not excluded. Calcified, tortuous aorta, accentuated by rotation. No pneumothorax. Degenerative changes. IMPRESSION: Increasing right hemithoracic opacification, likely combination of layering moderate pleural effusion with associated atelectasis. Cannot exclude infectious infiltrate. dnr/dni - family aware prognosis guarded no intubation improved line removed see note push intake DAILY ESTIMATED NEEDS: Needs based on sepsis 67.3kg 25-30 kcals/kg 1284-5397 total kcals 1-2 g protein/kg 67-135 g total protein 25-30 mL/kg 0730-3475 total fluid mLs NUTRITION DIAGNOSIS: Swallowing difficulty r/t dysphagia as evidenced by Pt is GT dep. CURRENT TF: Jevity 1.2 150ml q6 hrs ENTERAL NUTRITION RECOMMENDATIONS: Rec bolus increase to Jevity 1.2 @360ml bolus q6 hrs to provide 1440ml, 1728 kcal, 80g pro, 1162ml free H2O - Rec to INCREASE bolus to 360ml q6hrs (QID) to meet 100% est needs - Flush per MD. HOB over 30 degrees hrs post bolus. ADDITIONAL RECOMMENDATIONS: 1) Per SNF: 69 inches (5'9") and 148 lbs (67.3kg) 2) Monitor lytes and renal labs-> need for renal formula 3) BG 72 noted, rec bed side BG testing -> A1C for eval 4) Obtain a calibrated bed scale wt as able Orville Guzman Oct 10, 2019 09:25
--- NOTE | 2019-10-10 10:15 | General Progress Note ---
Assessment/Plan Assessment/Plan: 73 year old man with history of atrial fibrillation, not on anticoagulation, dysphagia, s/p G-tube, chonic diastolic CHF, HTN, DNR who presented from SNF with dyspnea and hypoxemia, rapid afib, RLL pneumonia and severe sepsis, likely IRENE, hyperkalemia, metabolic acidosis. #Severe sepsis #RLL gram negative pneumonia #Acute hypoxic respiratory failure #COVID Positive -cont. inpt medical care, tele -COVID19 POSITIVE, cont. Droplet precautions -Cont. broad spectrum antibiotics per ID -Supplemental oxygen, inhaled bronchodilators -CXR 10/05 w/right opacification, ?moderate effusion -ID and Pulm following, recs appreciated -d/w family on 10/06, Jessica Barba, , on prognosis, POC , stated pt with poor prognosis on comfort measures at this time -leukocytosis downtrending, ctm -cont. 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 Family wishes to have pt under hospice care. -d/w [facility] hospice, no in-patient hospice care at this time. -CM for d/c planning #Suspected IRENE - downtrending #Hyperkalemia - resolved #Metabolic acidosis #Hypokalemia #Hypernatremia -Hypernatremia likely 2/2 dehyrdation -increased FWF from 150cc to 250 cc q6 h -replace potassium -monitor electrolytes, replace PRN -Avoid nephrotoxic meds -10/04: s/p HD cath placed right femoral by gen surgery -Nephrology consulted, HD per nephro #Rapid afib -cardiac monitoring -trop 0.393 -Cardiology following: metoprolol, may need to change to digoxin or amio if pressures are borderline low -Eliquis 2.5 BID #Thrombocytopenia - improved -Plt 151 >> 97 >>106 -likely 2/2 heparin ggt -no signs of bleeding at this time, monitor for signs of bleeding -off heparin ggt CODE Status: DNR/DNI VTE PPx: Vijay I spent 36 minutes on this patient's case, 27 mins spent on coordination of care w/RN, CM for POC/dispo reguarding hospice. Additional 32 mins was dedicated to coordination of care with Nephro regarding electrolytes, and Pulm regarding POC/hospice/placement. Time of note doesn't reflect time of encounter. Subjective Allergies: Coded Allergies: No Known Allergies (Unverified , 10/05/19) Subjective F/u for sepsis, respiratory failure, COVID positive. Pt remains on non-rebreather, awake, alert, aphasic, appears uncomfortable. Objective Last 24 Hour Vital Signs Date Time Temp Pulse Resp B/P (MAP) Pulse Ox O2 Delivery O2 Flow Rate FiO2 10/10/19 08:48 75 120/77 10/10/19 08:00 98.1 75 20 120/77 (91) 98 10/10/19 04:23 15.0 10/10/19 04:00 116 10/10/19 04:00 99.0 110 20 114/69 (84) 95 10/10/19 00:00 97.5 120 20 150/74 (99) 95 10/10/19 00:00 15.0 10/10/19 00:00 125 10/09/19 21:00 116 95/50 10/09/19 21:00 Non-Rebreather 10/09/19 20:00 94 Non-Rebreather 15.0 100 10/09/19 20:00 97.2 116 20 100/50 (67) 95 10/09/19 20:00 117 10/09/19 20:00 15.0 10/09/19 20:00 118 20 94 Non-Rebreather 15.0 100 10/09/19 16:00 15.0 10/09/19 16:00 119 10/09/19 16:00 99.6 95 18 137/74 (95) 94 10/09/19 12:00 91 10/09/19 12:00 15.0 10/09/19 12:00 97.9 97 20 114/75 (88) 96 10/09/19 11:43 94 Non-Rebreather 15.0 100 Intake and Output 10/09/19 10/10/19 19:00 07:00 Output Total 700 ml 820 ml Balance -700 ml -820 ml Output Urine Total 700 ml 820 ml Laboratory Tests 10/10/19 07:45: White Blood Count 14.3H, Red Blood Count 3.71L, Hemoglobin 11.9L, Hematocrit 33.3L, Mean Corpuscular Volume 90, Mean Corpuscular Hemoglobin 31.9H, Mean Corpuscular Hemoglobin Concent 35.6, Red Cell Distribution Width 12.6, Platelet Count 103L, Mean Platelet Volume 11.1H, Neutrophils (%) (Auto) , Lymphocytes (% ) (Auto) , Monocytes (%) (Auto) , Eosinophils (%) (Auto) , Basophils (%) (Auto) , Neutrophils % (Manual) [Pending], Lymphocytes % (Manual) [Pending], Platelet Estimate [Pending], Platelet Morphology [Pending], Sodium Level 156H, Potassium Level 3.2L, Chloride Level 123H, Carbon Dioxide Level 16L, Anion Gap 17H, Blood Urea Nitrogen 58H, Creatinine 1.8H, Estimat Glomerular Filtration Rate 37.1, Glucose Level 92, Calcium Level 8.0L Height (Feet): 6 Height (Inches): 1.00 Weight (Pounds): 177 Objective General Appearance: awake, appears uncomfortable HEENT: atraumatic, anicteric Neck: supple, normal inspection Respiratory/Chest: on non-rebreather, coarse rhonchi b/L Cardiovascular/Chest: RR Abd: Soft, NT/ND, PEG in place, C/D/I Ext: Rt femoral cath c/d/i, no edema Valarie Whitehead M.D. Oct 10, 2019 10:15
--- NOTE | 2019-10-10 10:17 | Nephrology Progress Note ---
Assessment/Plan Plan #Acute renal failure - concerns for ATN in the setting of sepsis #Hyperkalemia due to renal failure- improved #lactic acidosis - improved #Sepsis likely due to pneumonia 2/2 COVID #Hypoxemic respiratory failure 2/2 COVID #Postive COVID #NSTEMI- likely demand ischemia - switch to d5w at 100cc/hr - monitor sodium and cr - antibiotic per ID - on vanco and zosyn - avoid supratherapeutic vanco level- consider switching vanco if Cr rises ?? - cardiology eval - metop 50mg BID - on apixaban - monitor platelet - remains on nonrebreather mask - hospice eval Subjective ROS Limited/Unobtainable: Yes Subjective sodium uptrending Cr 1.8 consideration of hospice Objective Objective Last 24 Hour Vital Signs Date Time Temp Pulse Resp B/P (MAP) Pulse Ox O2 Delivery O2 Flow Rate FiO2 10/10/19 08:48 75 120/77 10/10/19 08:00 98.1 75 20 120/77 (91) 98 10/10/19 04:23 15.0 10/10/19 04:00 116 10/10/19 04:00 99.0 110 20 114/69 (84) 95 10/10/19 00:00 97.5 120 20 150/74 (99) 95 10/10/19 00:00 15.0 10/10/19 00:00 125 10/09/19 21:00 116 95/50 10/09/19 21:00 Non-Rebreather 10/09/19 20:00 94 Non-Rebreather 15.0 100 10/09/19 20:00 97.2 116 20 100/50 (67) 95 10/09/19 20:00 117 10/09/19 20:00 15.0 10/09/19 20:00 118 20 94 Non-Rebreather 15.0 100 10/09/19 16:00 15.0 10/09/19 16:00 119 10/09/19 16:00 99.6 95 18 137/74 (95) 94 10/09/19 12:00 91 10/09/19 12:00 15.0 10/09/19 12:00 97.9 97 20 114/75 (88) 96 10/09/19 11:43 94 Non-Rebreather 15.0 100 Intake and Output 10/09/19 10/10/19 19:00 07:00 Output Total 700 ml 820 ml Balance -700 ml -820 ml Output Urine Total 700 ml 820 ml Laboratory Tests 10/10/19 07:45: White Blood Count 14.3H, Red Blood Count 3.71L, Hemoglobin 11.9L, Hematocrit 33.3L, Mean Corpuscular Volume 90, Mean Corpuscular Hemoglobin 31.9H, Mean Corpuscular Hemoglobin Concent 35.6, Red Cell Distribution Width 12.6, Platelet Count 103L, Mean Platelet Volume 11.1H, Neutrophils (%) (Auto) , Lymphocytes (% ) (Auto) , Monocytes (%) (Auto) , Eosinophils (%) (Auto) , Basophils (%) (Auto) , Neutrophils % (Manual) [Pending], Lymphocytes % (Manual) [Pending], Platelet Estimate [Pending], Platelet Morphology [Pending], Sodium Level 156H, Potassium Level 3.2L, Chloride Level 123H, Carbon Dioxide Level 16L, Anion Gap 17H, Blood Urea Nitrogen 58H, Creatinine 1.8H, Estimat Glomerular Filtration Rate 37.1, Glucose Level 92, Calcium Level 8.0L Height (Feet): 6 Height (Inches): 1.00 Weight (Pounds): 177 Objective General Appearance: lethargic, will open eyes, appears uncomfortable HEENT: atraumatic, anicteric Neck: supple, normal inspection Respiratory/Chest: on non-rebreather, coarse rhonchi b/L Cardiovascular/Chest: RR Abd: Soft, NT/ND, PEG in place, C/D/I Ext: Rt femoral cath c/d/i, no edema Charlee Tipton M.D. Oct 10, 2019 10:17
--- NOTE | 2019-10-10 10:45 | NUR ---
*-* INSURANCE *-* UPDATED CLINICALS AND REVIEWS HAVE BEEN FAXED TO: [facility] ([facility]) #[phone] fax#[phone]
[2019-10-10] MEDS: Piperacillin/Tazobactam 3.375 GM in NS 110 ML IVPB SCH (11:21)
--- NOTE | 2019-10-10 11:43 | Pulmonology Progress Note ---
Assessment/Plan Assessment/Plan 73 year old man with history of atrial fibrillation, not on anticoagulation, dysphagia, s/p G-tube, chonic diastolic CHF, HTN, DNR who presented from SNF with dyspnea and hypoxemia, rapid afib, RLL pneumonia and severe sepsis, likely IRENE, hyperkalemia, metabolic acidosis. #Severe sepsis #RLL gram negative pneumonia #Acute hypoxic respiratory failure #COVID Positive -COVID19 POSITIVE, cont. Droplet precautions -Cont. broad spectrum antibiotics, vancomycin and Zosyn -Supplemental oxygen, inhaled bronchodilators #Hyperkalemia #Metabolic acidosis #Rapid afib #Thrombocytopenia - improved CODE Status: DNR/DNI, Subjective Interval Events: Remains on NRBM; saO2 97% Constitutional: Reports: no symptoms HEENT: Repors: no symptoms Respiratory: Reports: no symptoms Cardiovascular: Reports: no symptoms Allergies: Coded Allergies: No Known Allergies (Unverified , 10/05/19) Objective Last 24 Hour Vital Signs Date Time Temp Pulse Resp B/P (MAP) Pulse Ox O2 Delivery O2 Flow Rate FiO2 10/10/19 09:00 Non-Rebreather 10/10/19 08:48 75 120/77 10/10/19 08:00 118 10/10/19 08:00 15.0 10/10/19 08:00 98.1 75 20 120/77 (91) 98 10/10/19 04:23 15.0 10/10/19 04:00 116 10/10/19 04:00 99.0 110 20 114/69 (84) 95 10/10/19 00:00 97.5 120 20 150/74 (99) 95 10/10/19 00:00 15.0 10/10/19 00:00 125 10/09/19 21:00 116 95/50 10/09/19 21:00 Non-Rebreather 10/09/19 20:00 94 Non-Rebreather 15.0 100 10/09/19 20:00 97.2 116 20 100/50 (67) 95 10/09/19 20:00 117 10/09/19 20:00 15.0 10/09/19 20:00 118 20 94 Non-Rebreather 15.0 100 10/09/19 16:00 15.0 10/09/19 16:00 119 10/09/19 16:00 99.6 95 18 137/74 (95) 94 10/09/19 12:00 91 10/09/19 12:00 15.0 10/09/19 12:00 97.9 97 20 114/75 (88) 96 10/09/19 11:43 94 Non-Rebreather 15.0 100 Intake and Output 10/09/19 10/10/19 19:00 07:00 Output Total 700 ml 820 ml Balance -700 ml -820 ml Output Urine Total 700 ml 820 ml General Appearance: no acute distress HEENT: normocephalic Respiratory/Chest: decreased breath sounds Cardiovascular: normal peripheral pulses Abdomen: normal bowel sounds Laboratory Tests 10/10/19 07:45: White Blood Count 14.3H, Red Blood Count 3.71L, Hemoglobin 11.9L, Hematocrit 33.3L, Mean Corpuscular Volume 90, Mean Corpuscular Hemoglobin 31.9H, Mean Corpuscular Hemoglobin Concent 35.6, Red Cell Distribution Width 12.6, Platelet Count 103L, Mean Platelet Volume 11.1H, Neutrophils (%) (Auto) , Lymphocytes (% ) (Auto) , Monocytes (%) (Auto) , Eosinophils (%) (Auto) , Basophils (%) (Auto) , Neutrophils % (Manual) [Pending], Lymphocytes % (Manual) [Pending], Platelet Estimate [Pending], Platelet Morphology [Pending], Sodium Level 156H, Potassium Level 3.2L, Chloride Level 123H, Carbon Dioxide Level 16L, Anion Gap 17H, Blood Urea Nitrogen 58H, Creatinine 1.8H, Estimat Glomerular Filtration Rate 37.1, Glucose Level 92, Calcium Level 8.0L Current Medications Medications (Trade) Dose Ordered Sig/Kristopher Route PRN Reason Start Time Stop Time Status Last Admin Dose Admin Acetaminophen (Tylenol) 650 mg Q4H PRN ORAL Mild Pain (Pain Scale 1-3) 10/07/19 19:15 11/04/19 15:14 10/08/19 22:03 Al Hydroxide/Mg Hydroxide (Mylanta II) 30 ml Q6H PRN ORAL dyspepsia 10/07/19 19:15 11/04/19 19:14 Albuterol/ Ipratropium (Combivent Respimat) 1 puff Q4H PRN INH Shortness of Breath 10/08/19 12:15 11/07/19 12:14 Apixaban (Eliquis) 5 mg BID GT 10/08/19 18:00 01/06/20 17:59 10/10/19 08:47 Aspirin (ASA) 81 mg DAILY ORAL 10/08/19 09:00 11/20/19 08:59 10/10/19 08:47 Dextrose 1,000 ml @ 100 mls/hr Q10H IV 10/10/19 10:30 11/09/19 10:29 10/10/19 11:23 Dextrose (Dextrose 50%) 25 ml Q30M PRN IV Hypoglycemia 10/07/19 19:15 01/03/20 15:14 Dextrose (Dextrose 50%) 50 ml Q30M PRN IV Hypoglycemia 10/07/19 19:15 01/03/20 15:14 Diphenhydramine HCl (Benadryl) 25 mg Q6H PRN ORAL Itching/Pruritis 10/07/19 19:15 11/04/19 19:14 Docusate Sodium (Colace) 100 mg EVERY 12 HOURS ORAL 10/07/19 21:00 11/04/19 20:59 10/10/19 08:47 Metoprolol Tartrate (Lopressor) 50 mg EVERY 12 HOURS ORAL 10/09/19 21:00 01/03/20 20:59 10/10/19 08:48 Ondansetron HCl (Zofran) 4 mg Q6H PRN IVP Nausea & Vomiting 10/07/19 19:15 11/04/19 19:14 Piperacillin Sod/ Tazobactam Sod 3.375 gm/Sodium Chloride 110 ml @ 27.5 mls/hr Q12H IVPB 10/07/19 23:00 10/12/19 22:59 10/10/19 11:21 Vancomycin HCl (Vanco rx to dose) 1 ea DAILY PRN MISC Per rx protocol 10/08/19 09:00 11/04/19 15:14 Dejan Lindsey MD Oct 10, 2019 11:43
[2019-10-10 12:00] VITALS: BP 121/76
--- NOTE | 2019-10-10 13:40 | Cardiac Electrophysiology PN ---
Assessment/Plan Assessment/Plan 1. Atrial fib with RVR.Better on Lopressor 50 bid and Eliquis 5 bid. 2. Respiratory failure on face mask. 3. NSTEMI, could be due to atrial fib with RVR and demand ischemia 4. PNA and sepsis on iv ABX. Covid was negative at [facility] but COVID is now positive as of 10/05/19 5. HTN Lopressor 50 bid 6. S/P PEG 7. DNR DW RN Subjective Subjective Confused on 15 liters NR face mask and in isolation as COVID is positive. In atrial fib with controlled rate Objective Last 24 Hour Vital Signs Date Time Temp Pulse Resp B/P (MAP) Pulse Ox O2 Delivery O2 Flow Rate FiO2 10/10/19 12:00 15.0 10/10/19 12:00 97.7 80 20 121/76 (91) 96 10/10/19 12:00 103 10/10/19 09:00 Non-Rebreather 10/10/19 08:48 75 120/77 10/10/19 08:00 118 10/10/19 08:00 15.0 10/10/19 08:00 98.1 75 20 120/77 (91) 98 10/10/19 04:23 15.0 10/10/19 04:00 116 10/10/19 04:00 99.0 110 20 114/69 (84) 95 10/10/19 00:00 97.5 120 20 150/74 (99) 95 10/10/19 00:00 15.0 10/10/19 00:00 125 10/09/19 21:00 116 95/50 10/09/19 21:00 Non-Rebreather 10/09/19 20:00 94 Non-Rebreather 15.0 100 10/09/19 20:00 97.2 116 20 100/50 (67) 95 10/09/19 20:00 117 10/09/19 20:00 15.0 10/09/19 20:00 118 20 94 Non-Rebreather 15.0 100 10/09/19 16:00 15.0 10/09/19 16:00 119 10/09/19 16:00 99.6 95 18 137/74 (95) 94 Intake and Output 10/09/19 10/10/19 19:00 07:00 Output Total 700 ml 820 ml Balance -700 ml -820 ml Output Urine Total 700 ml 820 ml Laboratory Tests Test 10/10/19 07:45 White Blood Count 14.3 K/UL (4.8-10.8) H Red Blood Count 3.71 M/UL (4.70-6.10) L Hemoglobin 11.9 G/DL (14.2-18.0) L Hematocrit 33.3 % (42.0-52.0) L Mean Corpuscular Volume 90 FL (80-99) Mean Corpuscular Hemoglobin 31.9 PG (27.0-31.0) H Mean Corpuscular Hemoglobin Concent 35.6 G/DL (32.0-36.0) Red Cell Distribution Width 12.6 % (11.6-14.8) Platelet Count 103 K/UL (150-450) L Mean Platelet Volume 11.1 FL (6.5-10.1) H Neutrophils (%) (Auto) % (45.0-75.0) Lymphocytes (%) (Auto) % (20.0-45.0) Monocytes (%) (Auto) % (1.0-10.0) Eosinophils (%) (Auto) % (0.0-3.0) Basophils (%) (Auto) % (0.0-2.0) Neutrophils % (Manual) Pending Lymphocytes % (Manual) Pending Platelet Estimate Pending Platelet Morphology Pending Sodium Level 156 MMOL/L (136-145) H Potassium Level 3.2 MMOL/L (3.5-5.1) L Chloride Level 123 MMOL/L (98-107) H Carbon Dioxide Level 16 MMOL/L (21-32) L Anion Gap 17 mmol/L (5-15) H Blood Urea Nitrogen 58 mg/dL (7-18) H Creatinine 1.8 MG/DL (0.55-1.30) H Estimat Glomerular Filtration Rate 37.1 mL/min (>60) Glucose Level 92 MG/DL (74-106) Calcium Level 8.0 MG/DL (8.5-10.1) L Objective HEENT: No JVD HEART: Irregular S1, S2. ABDOMEN: Soft. PEG LUNGS: Bilateral rhonchi and rales. SKIN: No rash. MUSCULOSKELETAL: No effusions. Legs are without cellulitis. PERIPHERAL VASCULAR: No cyanosis or gangrene. NEUROLOGIC: General weakness, poorly responsive. Kei Adams MD Oct 10, 2019 13:40
--- NOTE | 2019-10-10 14:16 | NUR ---
CASE MANAGEMENT:REVIEW 10/10/19 SI: COVID 19 PNEUMONIA. RAPID AFIB 97.7 80 20 121/76 96% ON NON REBREATHER @ 15L WBC+143.3 H/H-11.9/33.3 PLT-103 NA+156 K-3.2 BUN+58 CR+1.8 IS: IV ZOSYN Q12 IVF@100/HR K-DUR PO X1 LOPRESSOR GT Q12 ELIQUIS GT BID ASA GT QD : TELEMETRY STATUS DCP: [facility]: [facility] TO [facility] ~ MANAGING EDITOR MADE AWARE Addendum: 10/10/19 at 1430 by MIRIAM MARIA LVN LVN CORRECTION WBC+14.3
--- NOTE | 2019-10-10 15:05 | NUR ---
*-*DISCHARGE PLANNING*-* PATIENT HAS BEEN REFERRED TO: [facility] P: [phone] F: ~~~~~~~~~CLINICALS FAXED~~~~~~~~~~~~~~~~~~~ Addendum: 10/10/19 at 1624 by NIDA CHAPIN CM SPOKE WITH ZEN FROM, [facility],P: [phone], WHO STATED HE RECEIVED CLINICALS. ~~~~~~~~~~~~TERRA FOR DISCHARGE ORDER ~~~~~~~~~~~~~
[2019-10-10 16:00] VITALS: BP 123/72
--- NOTE | 2019-10-10 19:15 | NUR ---
HAND-OFF: Report given to Stefano/YUAN, Patient is in stable condition, Endorsed plan of care.
--- NOTE | 2019-10-10 20:20 | NUR ---
NURSE NOTES: Found pt unresponsive, no respirations, no breath sounds, no pulse, asystole on the patient monitor, no chest movement. Charge nurse Rere notified. Nurse Debug Technician Estephania Mccollum notified. Dr. Kelly/Eddie notified. [facility] notified. Family member Jessica notified. Per family [facility] [place] . 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 Addendum: 10/10/19 at 2336 by Stefano Gamez RN 2034: Spoke to Andrea at [facility]. [facility] Number: [id number]
--- NOTE | 2019-10-10 20:20 | NUR ---
PRONOUNCEMENT: No Code. Called to pronounce patient. Absence of spontaneous respirations, no cardiac or breath sounds on auscultation. Pupils fixed and dilated. No carotid pulse or chest movement. Patient at 2019. enid Anaya notified PER emi López. Family was notified at .
--- NOTE | 2019-10-10 22:02 | Neurology Progress Note ---
Interim History Interim History ROS Limited/Unobtainable: Yes Interim History remains non verbal on resp distress Objective Physical Exam Last Vital Signs Date Time Temp Pulse Resp B/P (MAP) Pulse Ox O2 Delivery O2 Flow Rate FiO2 10/10/19 18:24 99.1 10/10/19 16:00 125 24 123/72 (89) 96 10/10/19 16:00 15.0 10/10/19 09:42 Non-Rebreather 100 Laboratory Tests Test 10/10/19 07:45 White Blood Count 14.3 K/UL (4.8-10.8) H Red Blood Count 3.71 M/UL (4.70-6.10) L Hemoglobin 11.9 G/DL (14.2-18.0) L Hematocrit 33.3 % (42.0-52.0) L Mean Corpuscular Volume 90 FL (80-99) Mean Corpuscular Hemoglobin 31.9 PG (27.0-31.0) H Mean Corpuscular Hemoglobin Concent 35.6 G/DL (32.0-36.0) Red Cell Distribution Width 12.6 % (11.6-14.8) Platelet Count 103 K/UL (150-450) L Mean Platelet Volume 11.1 FL (6.5-10.1) H Neutrophils (%) (Auto) % (45.0-75.0) Lymphocytes (%) (Auto) % (20.0-45.0) Monocytes (%) (Auto) % (1.0-10.0) Eosinophils (%) (Auto) % (0.0-3.0) Basophils (%) (Auto) % (0.0-2.0) Differential Total Cells Counted 100 Neutrophils % (Manual) 97 % (45-75) H Lymphocytes % (Manual) 2 % (20-45) L Monocytes % (Manual) 1 % (1-10) Eosinophils % (Manual) 0 % (0-3) Basophils % (Manual) 0 % (0-2) Band Neutrophils 0 % (0-8) Platelet Estimate Decreased L Platelet Morphology Normal Red Blood Cell Morphology Normal Sodium Level 156 MMOL/L (136-145) H Potassium Level 3.2 MMOL/L (3.5-5.1) L Chloride Level 123 MMOL/L (98-107) H Carbon Dioxide Level 16 MMOL/L (21-32) L Anion Gap 17 mmol/L (5-15) H Blood Urea Nitrogen 58 mg/dL (7-18) H Creatinine 1.8 MG/DL (0.55-1.30) H Estimat Glomerular Filtration Rate 37.1 mL/min (>60) Glucose Level 92 MG/DL (74-106) Calcium Level 8.0 MG/DL (8.5-10.1) L Impression/Recommendations Problems: (1) Severe sepsis Alo Gaxiola MD Oct 10, 2019 22:02
--- NOTE | 2019-10-11 11:57 | NUR ---
*-* INSURANCE *-* UPDATED CLINICALS AND REVIEWS HAVE BEEN FAXED TO: [facility] ([facility]) #[phone] fax#[phone]
--- NOTE | 2019-10-12 10:14 | NUR ---
*-* INSURANCE *-* UNABLE TO SEEN DISCHARGE SUMMARY TO INS CO. NO IN THE SYSTEM YET.
--- NOTE | 2019-10-12 16:25 | Discharge Summary ---
Discharge Summary Hospital Course Date of Admission Oct 05, 2019 at 13:59 Date of Discharge Oct 10, 2019 at 20:20 Admitting Diagnosis hypoxia,sepsis,respiratory distress,r/o covid HPI Hadley Roblero is a 73 year old male who was admitted on Oct 05, 2019 at 13: 59 for Hypoxia,Sepsis,Respiratory Distress, [facility] Hospital Course Late Entry 73 year old man with history of atrial fibrillation, not on anticoagulation, dysphagia, s/p G-tube, chonic diastolic CHF, HTN, DNR who presented from SNF with dyspnea and hypoxemia, rapid afib, RLL pneumonia and severe sepsis, likely IRENE, hyperkalemia, metabolic acidosis. Patient was COVID-19 positive, CXR on with right opacification and moderate effusion. ID and pulmonary following, antibiotics given. Patient with respiratory distress, placed on nonrebreather with no improvement, no intubation given patient's CODE STATUS was DNR/DNI. Patient with very poor prognosis, multiple discussions with family, Jessica Jasmine, who decided to have pt go to hospice care. Pt was pronounced at 2019 on 10/10/19. #Severe sepsis #RLL gram negative pneumonia #Acute hypoxic respiratory failure #COVID Positive #Suspected IRENE - downtrending #Hyperkalemia - resolved #Metabolic acidosis #Hypokalemia #Hypernatremia #Rapid afib #Thrombocytopenia - improved Discharge Discharge Vital Signs Last Vital Signs Date Time Temp Pulse Resp B/P (MAP) Pulse Ox O2 Delivery O2 Flow Rate FiO2 10/10/19 18:24 99.1 10/10/19 16:00 125 24 123/72 (89) 96 10/10/19 16:00 15.0 10/10/19 09:42 Non-Rebreather 100 Discharge Disposition Patient was discharged to Valarie Whitehead M.D. Oct 12, 2019 16:25
== END 2019-10-10 20:20 | disposition expired | DRG 871 ==
LOC: EDBD 09:59 → EMR 10:20 → EDBEDREQ 11:03 → ICU 13:59 → 2W 13:59 → UNDOADMIN 13:59 → EDBEDREQ 21:25 → ICU 10-07 06:07 → 2E 10-07 18:58
PROC: 06HM33Z Insertion of Infusion Device into Right Femoral Vein, Percutaneous Approach (ICD-10-PCS; principal; 2019-10-05)
DX: A41.9 Sepsis, unspecified organism (principal); J96.01 Acute respiratory failure with hypoxia; J15.6 Pneumonia due to other Gram-negative bacteria; I21.A1 Myocardial infarction type 2; N17.0 Acute kidney failure with tubular necrosis; U07.1 COVID-19; E87.0 Hyperosmolality and hypernatremia; R65.20 Severe sepsis without septic shock; Z66 Do not resuscitate; I48.0 Paroxysmal atrial fibrillation; I10 Essential (primary) hypertension; F03.90 Unspecified dementia, unspecified severity, without behavioral disturbance, psychotic disturbance, mood disturbance, and anxiety; D69.6 Thrombocytopenia, unspecified
CPT/HCPCS: 36415; 36600; 71045; 80048; 80053; 80202; 81003; 82550; 82553; 82803; 83605; 83735; 83880; 84100; 84439; 84443; 84484; 85007; 85025; 85610; 85730; 86710; 87040; 87081; 87635; 93005; 94664; 96361; 96365; 96367; 96375; 99291; 99292; J7030; J8499